=== PATIENT | male | born 1935 | race Caucasian/White ===

== ENCOUNTER 2017-02-11 10:36 | Emergency (ER) | payer MEDICARE ==
[~2017-02-11] VITALS: Ht 165.1 cm; Wt 74.8 kg
[~2017-02-11 10:36] MED LIST: BACTRIM DS TAB1 EACH PO; LACTULOSE20 GM/30 M PO; ULTRAM50 MG PO; VICODIN 5-5001 EACH PO
[2017-02-11 12:21] LABS: BASOPHILS # (AUTO) 0.1 (0.0-0.1); BASOPHILS % 0.6 % (0.0-1.0); EOSINOPHILS # (AUTO) 0.2 (0.0-0.4); EOSINOPHILS % 1.2 % (0.0-6.0); HEMOGLOBIN 11.8 g/dL (14.0-18.0); LYMPHOCYTES # (AUTO) 1.2 (1.0-3.2); LYMPHOCYTES % 10.2 % (18.0-39.1); MEAN CORPUSCULAR HEMOGLOBIN 29.4 pg (28-32); MEAN CORPUSCULAR HGB CONC 32.8 g/dL (31-35); MEAN CORPUSCULAR VOLUME 89.8 fL (81-99); MONOCYTES # (AUTO) 0.6 (0.2-0.8); MONOCYTES % 4.8 % (4.4-11.3); PLATELET COUNT 209 x10e3/uL (140-360); RED BLOOD COUNT 4.01 x10e6/uL (4.3-5.7)
[2017-02-11 12:33] LABS: ANION GAP 12.4 mmol/L (8-16); BLOOD UREA NITROGEN 25 mg/dL (7-26); BUN/CREATININE RATIO 23 (6-25); CALCIUM 9.6 mg/dL (8.4-10.2); CARBON DIOXIDE 26 mmol/L (22-29); CHLORIDE 102 mmol/L (98-107); CREATINE KINASE 172 IU/L (30-200); EST GLOMERULAR FILTRATION RATE > 60 ML/MIN (60-); GLUCOSE 135 mg/dL (74-118); POTASSIUM 5.4 mmol/L (3.5-5.1); SODIUM 135 mmol/L (136-145)
[2017-02-11 12:39] LABS: TROPONIN I 0.015 ng/mL (0-0.300)
[2017-02-11] MEDS ORDERED: SODIUM CHLORIDE 0.9% 1000ML 1,000 ML IV ONE (13:00)
[2017-02-11 14:38] LABS: BILIRUBIN,URINE NEGATIVE (NEGATIVE); KETONES,URINE NEGATIVE (NEGATIVE); LEUKOCYTE ESTERASE ,URINE TRACE (NEGATIVE); NITRITE,URINE NEGATIVE (NEGATIVE); PROTEIN,URINE DIPSTICK NEGATIVE (NEGATIVE); URINE UROBILINOGEN 0.2 mg/dL (0.2 - 1)
[2017-02-11 14:39] LABS: CLARITY,URINE SL CLOUDY (CLEAR); COLOR,URINE YELLOW (YELLOW)
[2017-02-11 14:54] LABS: WBC,URINE (MAN) 0-5 /HPF (0-5)
[2017-02-11 15:24] VITALS: BP 152/67
== END 2017-02-11 15:39 | disposition home or self-care (01) ==
LOC: ER 10:36
DX: R55 Syncope and collapse (principal); R42 Dizziness and giddiness; R11.0 Nausea; I10 Essential (primary) hypertension; Z85.038 Personal history of other malignant neoplasm of large intestine
CPT/HCPCS: 36415; 80048; 81001; 82550; 82553; 84484; 85025; 87086; 93005; 99283; J7030

== ENCOUNTER 2017-03-13 15:22 | Emergency (ER) | payer MEDICARE ==
[~2017-03-13] VITALS: Ht 165.1 cm; Wt 74.8 kg
--- OUTSIDE RECORDS SUMMARY | 2017-03-13 15:27 | XMS REPORT ---
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 Allergies, Adverse Reactions, Alerts This patient has no known allergies or adverse reactions. Medications This patient has no known medications. Encounters Start Date/Time End Date/Time Encounter Type Admission Type Attending [facility] Care Facility Care Department Encounter ID 2016-07-17 08:55:00 2016-07-17 08:55:00 Outpatient C [facility] MED [id number] Results Test Description Test Time Test Comments Text Results Atomic Results Result Comments POC Glucose, Blood 2016-08-29 11:27:00 POC Glucose (test code=POCGLUC) 173 mg/dL 70-115 If you consider your patient critically ill, the Sunny Accu-Chek InformII metershould not be used for Glucose determinations.Draw a venous Glucose and send to the Main Lab for Analysis. POC Glucose, [id number] 07:00:00* Test Item Value Reference Range Comments POC Glucose (test code=POCGLUC) 119 mg/dL 70-115 If you consider your patient critically ill, the Sunny Accu-Chek InformII metershould not be used for Glucose determinations.Draw a venous Glucose and send to the Main Lab for Analysis. POC Glucose, [id number] 22:14:00* Test Item Value Reference Range Comments POC Glucose (test code=POCGLUC) 162 mg/dL 70-115 If you consider your patient critically ill, the Sunny Accu-Chek InformII metershould not be used for Glucose determinations.Draw a venous Glucose and send to the Main Lab for Analysis. POC Glucose, [id number] 16:35:00* Test Item Value Reference Range Comments POC Glucose (test code=POCGLUC) 132 mg/dL 70-115 If you consider your patient critically ill, the Sunny Accu-Chek InformII metershould not be used for Glucose determinations.Draw a venous Glucose and send to the Main Lab for Analysis. POC Glucose, [id number] 11:37:00* Test Item Value Reference Range Comments POC Glucose (test code=POCGLUC) 154 mg/dL 70-115 If you consider your patient critically ill, the Sunny Accu-Chek InformII metershould not be used for Glucose determinations.Draw a venous Glucose and send to the Main Lab for Analysis. POC Glucose, [id number] 07:29:00* Test Item Value Reference Range Comments POC Glucose (test code=POCGLUC) 118 mg/dL 70-115 If you consider your patient critically ill, the Sunny Accu-Chek InformII metershould not be used for Glucose determinations.Draw a venous Glucose and send to the Main Lab for Analysis. POC Glucose, [id number] 22:06:00* Test Item Value Reference Range Comments POC Glucose (test code=POCGLUC) 145 mg/dL 70-115 If you consider your patient critically ill, the Sunny Accu-Chek InformII metershould not be used for Glucose determinations.Draw a venous Glucose and send to the Main Lab for Analysis. POC Glucose, [id number] 17:12:00* Test Item Value Reference Range Comments POC Glucose (test code=POCGLUC) 117 mg/dL 70-115 If you consider your patient critically ill, the Sunny Accu-Chek InformII metershould not be used for Glucose determinations.Draw a venous Glucose and send to the Main Lab for Analysis. POC Glucose, [id number] 11:00:00* Test Item Value Reference Range Comments POC Glucose (test code=POCGLUC) 151 mg/dL 70-115 Notify RN or MDIf you consider your patient critically ill, the Sunny Accu-Chek InformII metershould not be used for Glucose determinations.Draw a venous Glucose and send to the Main Lab for Analysis. POC Glucose, [id number] 07:42:00* Test Item Value Reference Range Comments POC Glucose (test code=POCGLUC) 99 mg/dL 70-115 If you consider your patient critically ill, the Sunny Accu-Chek InformII metershould not be used for Glucose determinations.Draw a venous Glucose and send to the Main Lab for Analysis. POC Glucose, [id number] 21:10:00* Test Item Value Reference Range Comments POC Glucose (test code=POCGLUC) 165 mg/dL 70-115 Notify RN or MDIf you consider your patient critically ill, the Sunny Accu-Chek InformII metershould not be used for Glucose determinations.Draw a venous Glucose and send to the Main Lab for Analysis. POC Glucose, [id number] 16:51:00* Test Item Value Reference Range Comments POC Glucose (test code=POCGLUC) 149 mg/dL 70-115 If you consider your patient critically ill, the Sunny Accu-Chek InformII metershould not be used for Glucose determinations.Draw a venous Glucose and send to the Main Lab for Analysis. POC Glucose, [id number] 11:19:00* Test Item Value Reference Range Comments POC Glucose (test code=POCGLUC) 138 mg/dL 70-115 If you consider your patient critically ill, the Sunny Accu-Chek InformII metershould not be used for Glucose determinations.Draw a venous Glucose and send to the Main Lab for Analysis. POC Glucose, [id number] 07:28:00* Test Item Value Reference Range Comments POC Glucose (test code=POCGLUC) 123 mg/dL 70-115 If you consider your patient critically ill, the Sunny Accu-Chek InformII metershould not be used for Glucose determinations.Draw a venous Glucose and send to the Main Lab for Analysis. POC Glucose, [id number] 22:48:00* Test Item Value Reference Range Comments POC Glucose (test code=POCGLUC) 142 mg/dL 70-115 If you consider your patient critically ill, the Sunny Accu-Chek InformII metershould not be used for Glucose determinations.Draw a venous Glucose and send to the Main Lab for Analysis. POC Glucose, [id number] 16:51:00* Test Item Value Reference Range Comments POC Glucose (test code=POCGLUC) 129 mg/dL 70-115 If you consider your patient critically ill, the Sunny Accu-Chek InformII metershould not be used for Glucose determinations.Draw a venous Glucose and send to the Main Lab for Analysis. POC Glucose, [id number] 11:12:00* Test Item Value Reference Range Comments POC Glucose (test code=POCGLUC) 117 mg/dL 70-115 If you consider your patient critically ill, the Sunny Accu-Chek InformII metershould not be used for Glucose determinations.Draw a venous Glucose and send to the Main Lab for Analysis. POC Glucose, [id number] 07:41:00* Test Item Value Reference Range Comments POC Glucose (test code=POCGLUC) 108 mg/dL 70-115 If you consider your patient critically ill, the Sunny Accu-Chek InformII metershould not be used for Glucose determinations.Draw a venous Glucose and send to the Main Lab for Analysis. POC Glucose, [id number] 20:24:00* Test Item Value Reference Range Comments POC Glucose (test code=POCGLUC) 123 mg/dL 70-115 If you consider your patient critically ill, the Sunny Accu-Chek InformII metershould not be used for Glucose determinations.Draw a venous Glucose and send to the Main Lab for Analysis. POC Glucose, [id number] 17:07:00* Test Item Value Reference Range Comments POC Glucose (test code=POCGLUC) 125 mg/dL 70-115 If you consider your patient critically ill, the Sunny Accu-Chek InformII metershould not be used for Glucose determinations.Draw a venous Glucose and send to the Main Lab for Analysis. POC Glucose, [id number] 11:17:00* Test Item Value Reference Range Comments POC Glucose (test code=POCGLUC) 127 mg/dL 70-115 If you consider your patient critically ill, the Sunny Accu-Chek InformII metershould not be used for Glucose determinations.Draw a venous Glucose and send to the Main Lab for Analysis. POC Glucose, [id number] 08:01:00* Test Item Value Reference Range Comments POC Glucose (test code=POCGLUC) 121 mg/dL 70-115 If you consider your patient critically ill, the Sunny Accu-Chek InformII metershould not be used for Glucose determinations.Draw a venous Glucose and send to the Main Lab for Analysis. POC Glucose, [id number] 20:55:00* Test Item Value Reference Range Comments POC Glucose (test code=POCGLUC) 124 mg/dL 70-115 If you consider your patient critically ill, the Sunny Accu-Chek InformII metershould not be used for Glucose determinations.Draw a venous Glucose and send to the Main Lab for Analysis. POC Glucose, [id number] 16:51:00* Test Item Value Reference Range Comments POC Glucose (test code=POCGLUC) 102 mg/dL 70-115 If you consider your patient critically ill, the Sunny Accu-Chek InformII metershould not be used for Glucose determinations.Draw a venous Glucose and send to the Main Lab for Analysis. POC Glucose, [id number] 11:15:00* Test Item Value Reference Range Comments POC Glucose (test code=POCGLUC) 113 mg/dL 70-115 If you consider your patient critically ill, the Sunny Accu-Chek InformII metershould not be used for Glucose determinations.Draw a venous Glucose and send to the Main Lab for Analysis. POC Glucose, [id number] 07:10:00* Test Item Value Reference Range Comments POC Glucose (test code=POCGLUC) 93 mg/dL 70-115 If you consider your patient critically ill, the Sunny Accu-Chek InformII metershould not be used for Glucose determinations.Draw a venous Glucose and send to the Main Lab for Analysis. POC Glucose, [id number] 05:10:00* Test Item Value Reference Range Comments POC Glucose (test code=POCGLUC) 121 mg/dL 70-115 If you consider your patient critically ill, the Sunny Accu-Chek InformII metershould not be used for Glucose determinations.Draw a venous Glucose and send to the Main Lab for Analysis. POC Glucose, [id number] 20:17:00* Test Item Value Reference Range Comments POC Glucose (test code=POCGLUC) 133 mg/dL 70-115 If you consider your patient critically ill, the Sunny Accu-Chek InformII metershould not be used for Glucose determinations.Draw a venous Glucose and send to the Main Lab for Analysis. POC Glucose, [id number] 16:47:00* Test Item Value Reference Range Comments POC Glucose (test code=POCGLUC) 112 mg/dL 70-115 If you consider your patient critically ill, the Sunny Accu-Chek InformII metershould not be used for Glucose determinations.Draw a venous Glucose and send to the Main Lab for Analysis. POC Glucose, [id number] 11:36:00* Test Item Value Reference Range Comments POC Glucose (test code=POCGLUC) 118 mg/dL 70-115 If you consider your patient critically ill, the Sunny Accu-Chek InformII metershould not be used for Glucose determinations.Draw a venous Glucose and send to the Main Lab for Analysis. POC Glucose, [id number] 07:21:00* Test Item Value Reference Range Comments POC Glucose (test code=POCGLUC) 107 mg/dL 70-115 If you consider your patient critically ill, the Sunny Accu-Chek InformII metershould not be used for Glucose determinations.Draw a venous Glucose and send to the Main Lab for Analysis. POC Glucose, [id number] 21:48:00* Test Item Value Reference Range Comments POC Glucose (test code=POCGLUC) 121 mg/dL 70-115 Notify RN or MDIf you consider your patient critically ill, the Sunny Accu-Chek InformII metershould not be used for Glucose determinations.Draw a venous Glucose and send to the Main Lab for Analysis. POC Glucose, [id number] 17:40:00* Test Item Value Reference Range Comments POC Glucose (test code=POCGLUC) 135 mg/dL 70-115 If you consider your patient critically ill, the Sunny Accu-Chek InformII metershould not be used for Glucose determinations.Draw a venous Glucose and send to the Main Lab for Analysis. POC Glucose, [id number] 11:46:00* Test Item Value Reference Range Comments POC Glucose (test code=POCGLUC) 125 mg/dL 70-115 If you consider your patient critically ill, the Sunny Accu-Chek InformII metershould not be used for Glucose determinations.Draw a venous Glucose and send to the Main Lab for Analysis. POC Glucose, [id number] 07:32:00* Test Item Value Reference Range Comments POC Glucose (test code=POCGLUC) 114 mg/dL 70-115 If you consider your patient critically ill, the Sunny Accu-Chek InformII metershould not be used for Glucose determinations.Draw a venous Glucose and send to the Main Lab for Analysis. POC Glucose, [id number] 21:02:00* Test Item Value Reference Range Comments POC Glucose (test code=POCGLUC) 139 mg/dL 70-115 Notify RN or MDIf you consider your patient critically ill, the Sunny Accu-Chek InformII metershould not be used for Glucose determinations.Draw a venous Glucose and send to the Main Lab for Analysis. POC Glucose, [id number] 17:36:00* Test Item Value Reference Range Comments POC Glucose (test code=POCGLUC) 97 mg/dL 70-115 If you consider your patient critically ill, the Sunny Accu-Chek InformII metershould not be used for Glucose determinations.Draw a venous Glucose and send to the Main Lab for Analysis. POC Glucose, [id number] 11:17:00* Test Item Value Reference Range Comments POC Glucose (test code=POCGLUC) 124 mg/dL 70-115 If you consider your patient critically ill, the Sunny Accu-Chek InformII metershould not be used for Glucose determinations.Draw a venous Glucose and send to the Main Lab for Analysis. POC Glucose, [id number] 07:47:00* Test Item Value Reference Range Comments POC Glucose (test code=POCGLUC) 123 mg/dL 70-115 If you consider your patient critically ill, the Sunny Accu-Chek InformII metershould not be used for Glucose determinations.Draw a venous Glucose and send to the Main Lab for Analysis. POC Glucose, [id number] 21:01:00* Test Item Value Reference Range Comments POC Glucose (test code=POCGLUC) 133 mg/dL 70-115 Notify RN or MDIf you consider your patient critically ill, the Sunny Accu-Chek InformII metershould not be used for Glucose determinations.Draw a venous Glucose and send to the Main Lab for Analysis. POC Glucose, [id number] 17:10:00* Test Item Value Reference Range Comments POC Glucose (test code=POCGLUC) 125 mg/dL 70-115 If you consider your patient critically ill, the Sunny Accu-Chek InformII metershould not be used for Glucose determinations.Draw a venous Glucose and send to the Main Lab for Analysis. POC Glucose, [id number] 11:22:00* Test Item Value Reference Range Comments POC Glucose (test code=POCGLUC) 139 mg/dL 70-115 If you consider your patient critically ill, the Sunny Accu-Chek InformII metershould not be used for Glucose determinations.Draw a venous Glucose and send to the Main Lab for Analysis. POC Glucose, [id number] 07:23:00* Test Item Value Reference Range Comments POC Glucose (test code=POCGLUC) 133 mg/dL 70-115 If you consider your patient critically ill, the Sunny Accu-Chek InformII metershould not be used for Glucose determinations.Draw a venous Glucose and send to the Main Lab for Analysis. POC Glucose, [id number] 05:51:00* Test Item Value Reference Range Comments POC Glucose (test code=POCGLUC) 140 mg/dL 70-115 Notify RN or MDIf you consider your patient critically ill, the Sunny Accu-Chek InformII metershould not be used for Glucose determinations.Draw a venous Glucose and send to the Main Lab for Analysis. POC Glucose, [id number] 20:05:00* Test Item Value Reference Range Comments POC Glucose (test code=POCGLUC) 134 mg/dL 70-115 Notify RN or MDIf you consider your patient critically ill, the Sunny Accu-Chek InformII metershould not be used for Glucose determinations.Draw a venous Glucose and send to the Main Lab for Analysis. POC Glucose, [id number] 16:19:00* Test Item Value Reference Range Comments POC Glucose (test code=POCGLUC) 146 mg/dL 70-115 If you consider your patient critically ill, the Sunny Accu-Chek InformII metershould not be used for Glucose determinations.Draw a venous Glucose and send to the Main Lab for Analysis. POC Glucose, [id number] 11:31:00* Test Item Value Reference Range Comments POC Glucose (test code=POCGLUC) 130 mg/dL 70-115 If you consider your patient critically ill, the Sunny Accu-Chek InformII metershould not be used for Glucose determinations.Draw a venous Glucose and send to the Main Lab for Analysis. C difficile Toxins [id number] 11:02:00Specimen: StoolCollected: 08/17/2016 19 :55 Status: Final Last Updated: 08/18/2016 11:02 C DIFF TOXIN ( Final) (Final) 08/18/16 Clostridium difficile toxin present Contact isolation recommended +08/18/16 Called to Ibis Hebert RN at 1100/CL Read Back Lab Value Result added after release. C DIFF TOXIN (Final) (Final) 7/8/17 Clostridium difficile toxin present Contact isolation recommended POC Glucose, [id number] 07:31:00* Test Item Value Reference Range Comments POC Glucose (test code=POCGLUC) 109 mg/dL 70-115 If you consider your patient critically ill, the Sunny Accu-Chek InformII metershould not be used for Glucose determinations.Draw a venous Glucose and send to the Main Lab for Analysis. POC Glucose, [id number] 01:39:00* Test Item Value Reference Range Comments POC Glucose (test code=POCGLUC) 101 mg/dL 70-115 If you consider your patient critically ill, the Sunny Accu-Chek InformII metershould not be used for Glucose determinations.Draw a venous Glucose and send to the Main Lab for Analysis. POC Glucose, [id number] 20:55:00* Test Item Value Reference Range Comments POC Glucose (test code=POCGLUC) 75 mg/dL 70-115 If you consider your patient critically ill, the Sunny Accu-Chek InformII metershould not be used for Glucose determinations.Draw a venous Glucose and send to the Main Lab for Analysis. POC Glucose, [id number] 17:34:00* Test Item Value Reference Range Comments POC Glucose (test code=POCGLUC) 83 mg/dL 70-115 If you consider your patient critically ill, the Sunny Accu-Chek InformII metershould not be used for Glucose determinations.Draw a venous Glucose and send to the Main Lab for Analysis. POC Glucose, [id number] 11:37:00* Test Item Value Reference Range Comments POC Glucose (test code=POCGLUC) 110 mg/dL 70-115 If you consider your patient critically ill, the Sunny Accu-Chek InformII metershould not be used for Glucose determinations.Draw a venous Glucose and send to the Main Lab for Analysis. POC Glucose, [id number] 07:53:00* Test Item Value Reference Range Comments POC Glucose (test code=POCGLUC) 98 mg/dL 70-115 If you consider your patient critically ill, the Sunny Accu-Chek InformII metershould not be used for Glucose determinations.Draw a venous Glucose and send to the Main Lab for Analysis. POC Glucose, [id number] 20:55:00* Test Item Value Reference Range Comments POC Glucose (test code=POCGLUC) 111 mg/dL 70-115 If you consider your patient critically ill, the Sunny Accu-Chek InformII metershould not be used for Glucose determinations.Draw a venous Glucose and send to the Main Lab for Analysis. POC Glucose, [id number] 16:46:00* Test Item Value Reference Range Comments POC Glucose (test code=POCGLUC) 117 mg/dL 70-115 If you consider your patient critically ill, the Sunny Accu-Chek InformII metershould not be used for Glucose determinations.Draw a venous Glucose and send to the Main Lab for Analysis. [id number] 09:08:00* Test Item Value Reference Range Comments Phosphorus (test code=PO4) 4.0 mg/dL 2.70-4.50 Magnesium, [id number] 09:08:00* Test Item Value Reference Range Comments Magnesium (test code=MG) 2.1 mg/dL 1.7-2.5 Comprehensive Metabolic [id number] 09:08:00* Test Item Value Reference Range Comments Sodium (test code=NA) 132 mmol/L 135-145 Potassium (test code=K) 4.2 mmol/L 3.5-5.1 Chloride (test code=CL) 93 mmol/L 98-105 Carbon Dioxide (test code=CO2) 28 mmol/L 22-29 Glucose (test code=GLU) 117 mg/dL 70-115 Blood Urea Nitrogen (test code=BUN) 19 mg/dL 8-23 Creatinine (test code=CREAT) 0.6 mg/dL 0.7-1.2 Calcium (test code=CA) 8.7 mg/dL 8.3-10.5 Prot Total (test code=TP) 5.7 g/dL 6.4-8.3 Albumin (test code=ALB) 2.9 g/dL 3.5-5.2 A/G Ratio (test code=AGRATIO) 1.0 Ratio Globulin (test code=GLOB) 2.8 2.9-3.1 Bili Total (test code=TBIL) 0.4 mg/dL 0.1-0.9 Alk Phos (test code=APHOS) 75 U/L 40-129 AST (test code=AST) 24 U/L 1-40 ALT (test code=ALT) 20 U/L 1-41 BUN/Creatinine Ratio (test code=BCRATIO) 31.7 Anion Gap (test code=AGAP) 11 mmol/L 7-16 Estimated GFR (test code=GFR) >60 mL/min/1.73m2 eGFR (estimated Glomerular Filtration Rate) is an estimated value,calculated from the patient's serum creatinine using the MDRD equation.It is NOT the patient's actual GFR. The eGFR provides a more clinicallyuseful measure of kidney disease than serum creatinine alone.This calculation takes sex and race into account, if the informationis provided. If the race is not provided, and the patient isAfrican- [place], multiply by 1.212. If sex is not provided, and thepatient is female, multiply by 0.742. Results for patients <18 years ofage have not been validated by the MDRD study and should be interpretedwith caution.eGFR Result Interpretation:eGFR > or=60 is in the Normal RangeeGFR < 60 may mean kidney diseaseeGFR < 15 may mean kidney failureRanges recommended by the National Kidney Foundation,http://nkdep.nih.gov CBC with [id number] 08:20:00* Test Item Value Reference Range Comments WBC (test code=WBC) 5.3 K/cumm 4.4-10.5 RBC (test code=RBC) 2.97 M/cumm 4.10-5.70 Hemoglobin (test code=HGB) 8.9 gm/dL 13.4-17.4 Hematocrit (test code=HCT) 27.8 % 38.7-52.0 MCV (test code=MCV) 93.7 fL 80-100 MCH (test code=MCH) 30.0 pg 27.0-32.5 MCHC (test code=MCHC) 32.0 g/dL 32.0-37.5 RDW (test code=RDW) 13.7 % 11.5-14.5 Platelet Count (test code=PLTCT) 419 K/cumm 140-440 MPV (test code=MPV) 8.7 fL Diff Method (test code=DIFFM) Auto Neutrophil (test code=NEUT) 69.0 % 36-70 Lymphocyte (test code=LYMPH) 15.9 % 12-44 Monocyte (test code=MONO) 11.3 % 0-11 Eosinophil (test code=EOS) 3.4 % 0-7 Basophil (test code=BASO) 0.3 % 0-2 Neutro Abs (test code=ANEUT) 3.6 K/cumm 1.6-7.4 Lymph Abs (test code=ALYMPH) 0.8 K/cumm 0.5-4.6 [place] Abs (test code=AMONO) 0.6 K/cumm 0.0-1.2 Eos Abs (test code=AEOS) 0.18 K/cumm 0.00-0.74 Baso Abs (test code=ABASO) 0.0 K/cumm 0.00-0.21 POC Glucose, [id number] 07:42:00* Test Item Value Reference Range Comments POC Glucose (test code=POCGLUC) 139 mg/dL 70-115 If you consider your patient critically ill, the Sunny Accu-Chek InformII metershould not be used for Glucose determinations.Draw a venous Glucose and send to the Main Lab for Analysis. POC Glucose, [id number] 20:37:00* Test Item Value Reference Range Comments POC Glucose (test code=POCGLUC) 122 mg/dL 70-115 If you consider your patient critically ill, the Sunny Accu-Chek InformII metershould not be used for Glucose determinations.Draw a venous Glucose and send to the Main Lab for Analysis. Partial Thromboplastin [id number] 17:28:00* Test Item Value Reference Range Comments aPTT (test code=PTT) 35.70 seconds 24.39-37.25 CBC with [id number] 17:27:00* Test Item Value Reference Range Comments WBC (test code=WBC) 5.0 K/cumm 4.4-10.5 RBC (test code=RBC) 2.89 M/cumm 4.10-5.70 Hemoglobin (test code=HGB) 8.4 gm/dL 13.4-17.4 Hematocrit (test code=HCT) 26.6 % 38.7-52.0 MCV (test code=MCV) 92.0 fL 80-100 MCH (test code=MCH) 29.1 pg 27.0-32.5 MCHC (test code=MCHC) 31.6 g/dL 32.0-37.5 RDW (test code=RDW) 14.5 % 11.5-14.5 Platelet Count (test code=PLTCT) 356 K/cumm 140-440 MPV (test code=MPV) 8.6 fL Diff Method (test code=DIFFM) Manual Neutrophil (test code=NEUT) 54.0 % 36-70 Bands (test code=BAND) 5.0 % 0-6 Lymphocyte (test code=LYMPH) 19.0 % 12-44 Monocyte (test code=MONO) 15.0 % 0-11 Eosinophil (test code=EOS) 7.0 % 0-7 Neutro Abs (test code=ANEUT) 3.0 K/cumm 1.6-7.4 Lymph Abs (test code=ALYMPH) 1.0 K/cumm 0.5-4.6 [place] Abs (test code=AMONO) 0.8 K/cumm 0.0-1.2 Eos Abs (test code=AEOS) 0.35 K/cumm 0.00-0.74 RBC Morphology (test code=RBCMRPH) Slight Polychromasia ; Slight Anisocytosis Platelet Est (test code=PLTEST) Normal Platelet on Smear Prothrombin [id number] 17:03:00* Test Item Value Reference Range Comments PT (test code=PT) 10.90 seconds 9.78-13.35 INR (test code=INR) 0.96 Ratio 0.6-1.2 POC Glucose, [id number] 17:02:00* Test Item Value Reference Range Comments POC Glucose (test code=POCGLUC) 111 mg/dL 70-115 If you consider your patient critically ill, the Sunny Accu-Chek InformII metershould not be used for Glucose determinations.Draw a venous Glucose and send to the Main Lab for Analysis. POC Glucose, [id number] 11:17:00* Test Item Value Reference Range Comments POC Glucose (test code=POCGLUC) 129 mg/dL 70-115 If you consider your patient critically ill, the Sunny Accu-Chek InformII metershould not be used for Glucose determinations.Draw a venous Glucose and send to the Main Lab for Analysis. POC Glucose, [id number] 07:24:00* Test Item Value Reference Range Comments POC Glucose (test code=POCGLUC) 91 mg/dL 70-115 If you consider your patient critically ill, the Sunny Accu-Chek InformII metershould not be used for Glucose determinations.Draw a venous Glucose and send to the Main Lab for Analysis. POC Glucose, [id number] 20:30:00* Test Item Value Reference Range Comments POC Glucose (test code=POCGLUC) 133 mg/dL 70-115 If you consider your patient critically ill, the Sunny Accu-Chek InformII metershould not be used for Glucose determinations.Draw a venous Glucose and send to the Main Lab for Analysis. POC Glucose, [id number] 16:45:00* Test Item Value Reference Range Comments POC Glucose (test code=POCGLUC) 109 mg/dL 70-115 If you consider your patient critically ill, the Sunny Accu-Chek InformII metershould not be used for Glucose determinations.Draw a venous Glucose and send to the Main Lab for Analysis. POC Glucose, [id number] 11:06:00* Test Item Value Reference Range Comments POC Glucose (test code=POCGLUC) 135 mg/dL 70-115 If you consider your patient critically ill, the Sunny Accu-Chek InformII metershould not be used for Glucose determinations.Draw a venous Glucose and send to the Main Lab for Analysis. POC Glucose, [id number] 07:14:00* Test Item Value Reference Range Comments POC Glucose (test code=POCGLUC) 102 mg/dL 70-115 If you consider your patient critically ill, the Sunny Accu-Chek InformII metershould not be used for Glucose determinations.Draw a venous Glucose and send to the Main Lab for Analysis. POC Glucose, [id number] 04:35:00* Test Item Value Reference Range Comments POC Glucose (test code=POCGLUC) 122 mg/dL 70-115 If you consider your patient critically ill, the Sunny Accu-Chek InformII metershould not be used for Glucose determinations.Draw a venous Glucose and send to the Main Lab for Analysis. POC Glucose, [id number] 21:26:00* Test Item Value Reference Range Comments POC Glucose (test code=POCGLUC) 135 mg/dL 70-115 If you consider your patient critically ill, the Sunny Accu-Chek InformII metershould not be used for Glucose determinations.Draw a venous Glucose and send to the Main Lab for Analysis. POC Glucose, [id number] 16:27:00* Test Item Value Reference Range Comments POC Glucose (test code=POCGLUC) 122 mg/dL 70-115 If you consider your patient critically ill, the Sunny Accu-Chek InformII metershould not be used for Glucose determinations.Draw a venous Glucose and send to the Main Lab for Analysis. POC Glucose, [id number] 11:17:00* Test Item Value Reference Range Comments POC Glucose (test code=POCGLUC) 119 mg/dL 70-115 If you consider your patient critically ill, the Sunny Accu-Chek InformII metershould not be used for Glucose determinations.Draw a venous Glucose and send to the Main Lab for Analysis. POC Glucose, [id number] 07:18:00* Test Item Value Reference Range Comments POC Glucose (test code=POCGLUC) 107 mg/dL 70-115 If you consider your patient critically ill, the Sunny Accu-Chek InformII metershould not be used for Glucose determinations.Draw a venous Glucose and send to the Main Lab for Analysis. POC Glucose, [id number] 20:41:00* Test Item Value Reference Range Comments POC Glucose (test code=POCGLUC) 117 mg/dL 70-115 If you consider your patient critically ill, the Sunny Accu-Chek InformII metershould not be used for Glucose determinations.Draw a venous Glucose and send to the Main Lab for Analysis. POC Glucose, [id number] 16:44:00* Test Item Value Reference Range Comments POC Glucose (test code=POCGLUC) 113 mg/dL 70-115 If you consider your patient critically ill, the Sunny Accu-Chek InformII metershould not be used for Glucose determinations.Draw a venous Glucose and send to the Main Lab for Analysis. POC Glucose, [id number] 10:51:00* Test Item Value Reference Range Comments POC Glucose (test code=POCGLUC) 103 mg/dL 70-115 If you consider your patient critically ill, the Sunny Accu-Chek InformII metershould not be used for Glucose determinations.Draw a venous Glucose and send to the Main Lab for Analysis. POC Glucose, [id number] 07:10:00* Test Item Value Reference Range Comments POC Glucose (test code=POCGLUC) 108 mg/dL 70-115 If you consider your patient critically ill, the Sunny Accu-Chek InformII metershould not be used for Glucose determinations.Draw a venous Glucose and send to the Main Lab for Analysis. POC Glucose, [id number] 21:26:00* Test Item Value Reference Range Comments POC Glucose (test code=POCGLUC) 127 mg/dL 70-115 If you consider your patient critically ill, the Sunny Accu-Chek InformII metershould not be used for Glucose determinations.Draw a venous Glucose and send to the Main Lab for Analysis. POC Glucose, [id number] 16:50:00* Test Item Value Reference Range Comments POC Glucose (test code=POCGLUC) 128 mg/dL 70-115 If you consider your patient critically ill, the Sunny Accu-Chek InformII metershould not be used for Glucose determinations.Draw a venous Glucose and send to the Main Lab for Analysis. POC Glucose, [id number] 10:53:00* Test Item Value Reference Range Comments POC Glucose (test code=POCGLUC) 117 mg/dL 70-115 If you consider your patient critically ill, the Sunny Accu-Chek InformII metershould not be used for Glucose determinations.Draw a venous Glucose and send to the Main Lab for Analysis. POC Glucose, [id number] 07:22:00* Test Item Value Reference Range Comments POC Glucose (test code=POCGLUC) 103 mg/dL 70-115 If you consider your patient critically ill, the Sunny Accu-Chek InformII metershould not be used for Glucose determinations.Draw a venous Glucose and send to the Main Lab for Analysis. Basic Metabolic [id number] 07:16:00* Test Item Value Reference Range Comments Sodium (test code=NA) 131 mmol/L 135-145 Potassium (test code=K) 4.5 mmol/L 3.5-5.1 Chloride (test code=CL) 95 mmol/L 98-105 Carbon Dioxide (test code=CO2) 26 mmol/L 22-29 Glucose (test code=GLU) 96 mg/dL 70-115 Blood Urea Nitrogen (test code=BUN) 17 mg/dL 8-23 Creatinine (test code=CREAT) 0.6 mg/dL 0.7-1.2 Calcium (test code=CA) 8.2 mg/dL 8.3-10.5 BUN/Creatinine Ratio (test code=BCRATIO) 28.3 Anion Gap (test code=AGAP) 10 mmol/L 7-16 Estimated GFR (test code=GFR) >60 mL/min/1.73m2 eGFR (estimated Glomerular Filtration Rate) is an estimated value,calculated from the patient's serum creatinine using the MDRD equation.It is NOT the patient's actual GFR. The eGFR provides a more clinicallyuseful measure of kidney disease than serum creatinine alone.This calculation takes sex and race into account, if the informationis provided. If the race is not provided, and the patient isAfrican- [place], multiply by 1.212. If sex is not provided, and thepatient is female, multiply by 0.742. Results for patients <18 years ofage have not been validated by the MDRD study and should be interpretedwith caution.eGFR Result Interpretation:eGFR > or=60 is in the Normal RangeeGFR < 60 may mean kidney diseaseeGFR < 15 may mean kidney failureRanges recommended by the National Kidney Foundation,http://nkdep.nih.gov CBC with [id number] 06:54:00* Test Item Value Reference Range Comments WBC (test code=WBC) 6.6 K/cumm 4.4-10.5 RBC (test code=RBC) 2.53 M/cumm 4.10-5.70 Hemoglobin (test code=HGB) 7.6 gm/dL 13.4-17.4 Hematocrit (test code=HCT) 24.1 % 38.7-52.0 MCV (test code=MCV) 95.2 fL 80-100 MCH (test code=MCH) 30.2 pg 27.0-32.5 MCHC (test code=MCHC) 31.7 g/dL 32.0-37.5 RDW (test code=RDW) 14.0 % 11.5-14.5 Platelet Count (test code=PLTCT) 314 K/cumm 140-440 MPV (test code=MPV) 8.8 fL Diff Method (test code=DIFFM) Auto Neutrophil (test code=NEUT) 74.4 % 36-70 Lymphocyte (test code=LYMPH) 14.6 % 12-44 Monocyte (test code=MONO) 7.2 % 0-11 Eosinophil (test code=EOS) 3.6 % 0-7 Basophil (test code=BASO) 0.2 % 0-2 Neutro Abs (test code=ANEUT) 4.9 K/cumm 1.6-7.4 Lymph Abs (test code=ALYMPH) 1.0 K/cumm 0.5-4.6 [place] Abs (test code=AMONO) 0.5 K/cumm 0.0-1.2 Eos Abs (test code=AEOS) 0.24 K/cumm 0.00-0.74 Baso Abs (test code=ABASO) 0.0 K/cumm 0.00-0.21 POC Glucose, [id number] 21:33:00* Test Item Value Reference Range Comments POC Glucose (test code=POCGLUC) 118 mg/dL 70-115 If you consider your patient critically ill, the Sunny Accu-Chek InformII metershould not be used for Glucose determinations.Draw a venous Glucose and send to the Main Lab for Analysis. POC Glucose, [id number] 16:46:00* Test Item Value Reference Range Comments POC Glucose (test code=POCGLUC) 108 mg/dL 70-115 If you consider your patient critically ill, the Sunny Accu-Chek InformII metershould not be used for Glucose determinations.Draw a venous Glucose and send to the Main Lab for Analysis. POC Glucose, [id number] 11:08:00* Test Item Value Reference Range Comments POC Glucose (test code=POCGLUC) 116 mg/dL 70-115 If you consider your patient critically ill, the Sunny Accu-Chek InformII metershould not be used for Glucose determinations.Draw a venous Glucose and send to the Main Lab for Analysis. POC Glucose, [id number] 07:13:00* Test Item Value Reference Range Comments POC Glucose (test code=POCGLUC) 113 mg/dL 70-115 If you consider your patient critically ill, the Sunny Accu-Chek InformII metershould not be used for Glucose determinations.Draw a venous Glucose and send to the Main Lab for Analysis. POC Glucose, [id number] 21:17:00* Test Item Value Reference Range Comments POC Glucose (test code=POCGLUC) 117 mg/dL 70-115 If you consider your patient critically ill, the Sunny Accu-Chek InformII metershould not be used for Glucose determinations.Draw a venous Glucose and send to the Main Lab for Analysis. POC Glucose, [id number] 17:18:00* Test Item Value Reference Range Comments POC Glucose (test code=POCGLUC) 114 mg/dL 70-115 If you consider your patient critically ill, the Sunny Accu-Chek InformII metershould not be used for Glucose determinations.Draw a venous Glucose and send to the Main Lab for Analysis. POC Glucose, [id number] 11:11:00* Test Item Value Reference Range Comments POC Glucose (test code=POCGLUC) 119 mg/dL 70-115 If you consider your patient critically ill, the Sunny Accu-Chek InformII metershould not be used for Glucose determinations.Draw a venous Glucose and send to the Main Lab for Analysis. POC Glucose, [id number] 07:30:00* Test Item Value Reference Range Comments POC Glucose (test code=POCGLUC) 102 mg/dL 70-115 If you consider your patient critically ill, the Sunny Accu-Chek InformII metershould not be used for Glucose determinations.Draw a venous Glucose and send to the Main Lab for Analysis. POC Glucose, [id number] 20:56:00* Test Item Value Reference Range Comments POC Glucose (test code=POCGLUC) 115 mg/dL 70-115 If you consider your patient critically ill, the Sunny Accu-Chek InformII metershould not be used for Glucose determinations.Draw a venous Glucose and send to the Main Lab for Analysis. POC Glucose, [id number] 17:05:00* Test Item Value Reference Range Comments POC Glucose (test code=POCGLUC) 97 mg/dL 70-115 If you consider your patient critically ill, the Sunny Accu-Chek InformII metershould not be used for Glucose determinations.Draw a venous Glucose and send to the Main Lab for Analysis. POC Glucose, [id number] 11:36:00* Test Item Value Reference Range Comments POC Glucose (test code=POCGLUC) 109 mg/dL 70-115 If you consider your patient critically ill, the Sunny Accu-Chek InformII metershould not be used for Glucose determinations.Draw a venous Glucose and send to the Main Lab for Analysis. POC Glucose, [id number] 07:12:00* Test Item Value Reference Range Comments POC Glucose (test code=POCGLUC) 98 mg/dL 70-115 If you consider your patient critically ill, the Sunny Accu-Chek InformII metershould not be used for Glucose determinations.Draw a venous Glucose and send to the Main Lab for Analysis. POC Glucose, [id number] 21:06:00* Test Item Value Reference Range Comments POC Glucose (test code=POCGLUC) 113 mg/dL 70-115 If you consider your patient critically ill, the Sunny Accu-Chek InformII metershould not be used for Glucose determinations.Draw a venous Glucose and send to the Main Lab for Analysis. POC Glucose, [id number] 17:34:00* Test Item Value Reference Range Comments POC Glucose (test code=POCGLUC) 94 mg/dL 70-115 If you consider your patient critically ill, the Sunny Accu-Chek InformII metershould not be used for Glucose determinations.Draw a venous Glucose and send to the Main Lab for Analysis. CBC with [id number] 15:14:00* Test Item Value Reference Range Comments WBC (test code=WBC) 11.6 K/cumm 4.4-10.5 RBC (test code=RBC) 2.76 M/cumm 4.10-5.70 Hemoglobin (test code=HGB) 8.4 gm/dL 13.4-17.4 Hematocrit (test code=HCT) 26.0 % 38.7-52.0 MCV (test code=MCV) 94.4 fL 80-100 MCH (test code=MCH) 30.5 pg 27.0-32.5 MCHC (test code=MCHC) 32.3 g/dL 32.0-37.5 RDW (test code=RDW) 14.0 % 11.5-14.5 Platelet Count (test code=PLTCT) 521 K/cumm 140-440 MPV (test code=MPV) 8.6 fL Diff Method (test code=DIFFM) Auto Neutrophil (test code=NEUT) 87.8 % 36-70 Lymphocyte (test code=LYMPH) 6.7 % 12-44 Monocyte (test code=MONO) 2.9 % 0-11 Eosinophil (test code=EOS) 2.5 % 0-7 Basophil (test code=BASO) 0.2 % 0-2 Neutro Abs (test code=ANEUT) 10.2 K/cumm 1.6-7.4 Lymph Abs (test code=ALYMPH) 0.8 K/cumm 0.5-4.6 [place] Abs (test code=AMONO) 0.3 K/cumm 0.0-1.2 Eos Abs (test code=AEOS) 0.29 K/cumm 0.00-0.74 Baso Abs (test code=ABASO) 0.0 K/cumm 0.00-0.21 Hepatic Function [id number] 15:08:00* Test Item Value Reference Range Comments Prot Total (test code=TP) 5.4 g/dL 6.4-8.3 Albumin (test code=ALB) 2.8 g/dL 3.5-5.2 A/G Ratio (test code=AGRATIO) 1.1 Ratio Globulin (test code=GLOB) 2.6 2.9-3.1 Bili Total (test code=TBIL) 0.4 mg/dL 0.1-0.9 Bili Direct (test code=DBIL) <0.2 mg/dL 0.0-0.3 Bili Indirect (test code=IBIL) 0.3 Alk Phos (test code=APHOS) 80 U/L 40-129 AST (test code=AST) 29 U/L 1-40 ALT (test code=ALT) 29 U/L 1-41 Basic Metabolic [id number] 15:08:00* Test Item Value Reference Range Comments Sodium (test code=NA) 130 mmol/L 135-145 Potassium (test code=K) 4.6 mmol/L 3.5-5.1 Chloride (test code=CL) 96 mmol/L 98-105 Carbon Dioxide (test code=CO2) 24 mmol/L 22-29 Glucose (test code=GLU) 131 mg/dL 70-115 Blood Urea Nitrogen (test code=BUN) 19 mg/dL 8-23 Creatinine (test code=CREAT) 0.6 mg/dL 0.7-1.2 Calcium (test code=CA) 8.2 mg/dL 8.3-10.5 BUN/Creatinine Ratio (test code=BCRATIO) 31.7 Anion Gap (test code=AGAP) 10 mmol/L 7-16 Estimated GFR (test code=GFR) >60 mL/min/1.73m2 eGFR (estimated Glomerular Filtration Rate) is an estimated value,calculated from the patient's serum creatinine using the MDRD equation.It is NOT the patient's actual GFR. The eGFR provides a more clinicallyuseful measure of kidney disease than serum creatinine alone.This calculation takes sex and race into account, if the informationis provided. If the race is not provided, and the patient isAfrican- [place], multiply by 1.212. If sex is not provided, and thepatient is female, multiply by 0.742. Results for patients <18 years ofage have not been validated by the MDRD study and should be interpretedwith caution.eGFR Result Interpretation:eGFR > or=60 is in the Normal RangeeGFR < 60 may mean kidney diseaseeGFR < 15 may mean kidney failureRanges recommended by the National Kidney Foundation,http://nkdep.nih.gov POC Glucose, [id number] 11:14:00* Test Item Value Reference Range Comments POC Glucose (test code=POCGLUC) 135 mg/dL 70-115 If you consider your patient critically ill, the Sunny Accu-Chek InformII metershould not be used for Glucose determinations.Draw a venous Glucose and send to the Main Lab for Analysis. POC Glucose, [id number] 08:01:00* Test Item Value Reference Range Comments POC Glucose (test code=POCGLUC) 117 mg/dL 70-115 If you consider your patient critically ill, the Sunny Accu-Chek InformII metershould not be used for Glucose determinations.Draw a venous Glucose and send to the Main Lab for Analysis. POC Glucose, [id number] 20:27:00* Test Item Value Reference Range Comments POC Glucose (test code=POCGLUC) 104 mg/dL 70-115 If you consider your patient critically ill, the Sunny Accu-Chek InformII metershould not be used for Glucose determinations.Draw a venous Glucose and send to the Main Lab for Analysis. POC Glucose, [id number] 16:00:00* Test Item Value Reference Range Comments POC Glucose (test code=POCGLUC) 124 mg/dL 70-115 If you consider your patient critically ill, the Sunny Accu-Chek InformII metershould not be used for Glucose determinations.Draw a venous Glucose and send to the Main Lab for Analysis. POC Glucose, [id number] 10:51:00* Test Item Value Reference Range Comments POC Glucose (test code=POCGLUC) 126 mg/dL 70-115 If you consider your patient critically ill, the Sunny Accu-Chek InformII metershould not be used for Glucose determinations.Draw a venous Glucose and send to the Main Lab for Analysis. POC Glucose, [id number] 04:18:00* Test Item Value Reference Range Comments POC Glucose (test code=POCGLUC) 99 mg/dL 70-115 If you consider your patient critically ill, the Sunny Accu-Chek InformII metershould not be used for Glucose determinations.Draw a venous Glucose and send to the Main Lab for Analysis. POC Glucose, [id number] 21:39:00* Test Item Value Reference Range Comments POC Glucose (test code=POCGLUC) 111 mg/dL 70-115 If you consider your patient critically ill, the Sunny Accu-Chek InformII metershould not be used for Glucose determinations.Draw a venous Glucose and send to the Main Lab for Analysis. POC Glucose, [id number] 16:57:00* Test Item Value Reference Range Comments POC Glucose (test code=POCGLUC) 100 mg/dL 70-115 Notify RN or MDIf you consider your patient critically ill, the [facility] Accu-Chek InformII metershould not be used for Glucose determinations.Draw a venous Glucose and send to the Main Lab for Analysis. POC Glucose, [id number] 11:20:00* Test Item Value Reference Range Comments POC Glucose (test code=POCGLUC) 111 mg/dL 70-115 If you consider your patient critically ill, the Sunny Accu-Chek InformII metershould not be used for Glucose determinations.Draw a venous Glucose and send to the Main Lab for Analysis. POC Glucose, [id number] 07:52:00* Test Item Value Reference Range Comments POC Glucose (test code=POCGLUC) 100 mg/dL 70-115 Notify RN or MDIf you consider your patient critically ill, the Sunny Accu-Chek InformII metershould not be used for Glucose determinations.Draw a venous Glucose and send to the Main Lab for Analysis. POC Glucose, [id number] 21:34:00* Test Item Value Reference Range Comments POC Glucose (test code=POCGLUC) 87 mg/dL 70-115 If you consider your patient critically ill, the [facility] Accu-Chek InformII metershould not be used for Glucose determinations.Draw a venous Glucose and send to the Main Lab for Analysis. POC Glucose, [id number] 16:46:00* Test Item Value Reference Range Comments POC Glucose (test code=POCGLUC) 146 mg/dL 70-115 If you consider your patient critically ill, the [facility] Accu-Chek InformII metershould not be used for Glucose determinations.Draw a venous Glucose and send to the Main Lab for Analysis. POC Glucose, [id number] 12:10:00* Test Item Value Reference Range Comments POC Glucose (test code=POCGLUC) 145 mg/dL 70-115 If you consider your patient critically ill, the Sunny Accu-Chek InformII metershould not be used for Glucose determinations.Draw a venous Glucose and send to the Main Lab for Analysis. POC Glucose, [id number] 07:55:00* Test Item Value Reference Range Comments POC Glucose (test code=POCGLUC) 160 mg/dL 70-115 Notify RN or MDIf you consider your patient critically ill, the [facility] Accu-Chek InformII metershould not be used for Glucose determinations.Draw a venous Glucose and send to the Main Lab for Analysis. POC Glucose, [id number] 05:44:00* Test Item Value Reference Range Comments POC Glucose (test code=POCGLUC) 188 mg/dL 70-115 If you consider your patient critically ill, the [facility] Accu-Chek InformII metershould not be used for Glucose determinations.Draw a venous Glucose and send to the Main Lab for Analysis. POC Glucose, [id number] 21:28:00* Test Item Value Reference Range Comments POC Glucose (test code=POCGLUC) 179 mg/dL 70-115 If you consider your patient critically ill, the Sunny Accu-Chek InformII metershould not be used for Glucose determinations.Draw a venous Glucose and send to the Main Lab for Analysis. POC Glucose, [id number] 16:13:00* Test Item Value Reference Range Comments POC Glucose (test code=POCGLUC) 188 mg/dL 70-115 If you consider your patient critically ill, the Sunny Accu-Chek InformII metershould not be used for Glucose determinations.Draw a venous Glucose and send to the Main Lab for Analysis. POC Glucose, [id number] 10:29:00* Test Item Value Reference Range Comments POC Glucose (test code=POCGLUC) 222 mg/dL 70-115 If you consider your patient critically ill, the Sunny Accu-Chek InformII metershould not be used for Glucose determinations.Draw a venous Glucose and send to the Main Lab for Analysis. Magnesium, [id number] 09:38:00* Test Item Value Reference Range Comments Magnesium (test code=MG) 2.1 mg/dL 1.7-2.5 Basic Metabolic [id number] 09:38:00* Test Item Value Reference Range Comments Sodium (test code=NA) 136 mmol/L 135-145 Potassium (test code=K) 3.7 mmol/L 3.5-5.1 Chloride (test code=CL) 100 mmol/L 98-105 Carbon Dioxide (test code=CO2) 26 mmol/L 22-29 Glucose (test code=GLU) 185 mg/dL 70-115 Blood Urea Nitrogen (test code=BUN) 27 mg/dL 8-23 Creatinine (test code=CREAT) 0.5 mg/dL 0.7-1.2 Calcium (test code=CA) 8.0 mg/dL 8.3-10.5 BUN/Creatinine Ratio (test code=BCRATIO) 54.0 Anion Gap (test code=AGAP) 10 mmol/L 7-16 Estimated GFR (test code=GFR) >60 mL/min/1.73m2 eGFR (estimated Glomerular Filtration Rate) is an estimated value,calculated from the patient's serum creatinine using the MDRD equation.It is NOT the patient's actual GFR. The eGFR provides a more clinicallyuseful measure of kidney disease than serum creatinine alone.This calculation takes sex and race into account, if the informationis provided. If the race is not provided, and the patient isAfrican- [place], multiply by 1.212. If sex is not provided, and thepatient is female, multiply by 0.742. Results for patients <18 years ofage have not been validated by the MDRD study and should be interpretedwith caution.eGFR Result Interpretation:eGFR > or=60 is in the Normal RangeeGFR < 60 may mean kidney diseaseeGFR < 15 may mean kidney failureRanges recommended by the National Kidney Foundation,http://nkdep.nih.gov [id number] 09:38:00* Test Item Value Reference Range Comments Phosphorus (test code=PO4) 2.9 mg/dL 2.70-4.50 CBC with [id number] 09:21:00* Test Item Value Reference Range Comments WBC (test code=WBC) 13.1 K/cumm 4.4-10.5 RBC (test code=RBC) 3.16 M/cumm 4.10-5.70 Hemoglobin (test code=HGB) 9.5 gm/dL 13.4-17.4 Hematocrit (test code=HCT) 29.0 % 38.7-52.0 MCV (test code=MCV) 91.9 fL 80-100 MCH (test code=MCH) 30.1 pg 27.0-32.5 MCHC (test code=MCHC) 32.8 g/dL 32.0-37.5 RDW (test code=RDW) 14.3 % 11.5-14.5 Platelet Count (test code=PLTCT) 399 K/cumm 140-440 MPV (test code=MPV) 8.1 fL Diff Method (test code=DIFFM) Auto Neutrophil (test code=NEUT) 86.4 % 36-70 Lymphocyte (test code=LYMPH) 8.7 % 12-44 Monocyte (test code=MONO) 4.2 % 0-11 Eosinophil (test code=EOS) 0.5 % 0-7 Basophil (test code=BASO) 0.2 % 0-2 Neutro Abs (test code=ANEUT) 11.3 K/cumm 1.6-7.4 Lymph Abs (test code=ALYMPH) 1.1 K/cumm 0.5-4.6 [place] Abs (test code=AMONO) 0.6 K/cumm 0.0-1.2 Eos Abs (test code=AEOS) 0.06 K/cumm 0.00-0.74 Baso Abs (test code=ABASO) 0.0 K/cumm 0.00-0.21 POC Glucose, [id number] 06:52:00* Test Item Value Reference Range Comments POC Glucose (test code=POCGLUC) 170 mg/dL 70-115 If you consider your patient critically ill, the Sunny Accu-Chek InformII metershould not be used for Glucose determinations.Draw a venous Glucose and send to the Main Lab for Analysis. POC Glucose, [id number] 05:03:00* Test Item Value Reference Range Comments POC Glucose (test code=POCGLUC) 192 mg/dL 70-115 Notify RN or MDIf you consider your patient critically ill, the Sunny Accu-Chek InformII metershould not be used for Glucose determinations.Draw a venous Glucose and send to the Main Lab for Analysis. POC Glucose, [id number] 22:05:00* Test Item Value Reference Range Comments POC Glucose (test code=POCGLUC) 127 mg/dL 70-115 Notify RN or MDIf you consider your patient critically ill, the Sunny Accu-Chek InformII metershould not be used for Glucose determinations.Draw a venous Glucose and send to the Main Lab for Analysis. POC Glucose, [id number] 16:13:00* Test Item Value Reference Range Comments POC Glucose (test code=POCGLUC) 99 mg/dL 70-115 If you consider your patient critically ill, the Sunny Accu-Chek InformII metershould not be used for Glucose determinations.Draw a venous Glucose and send to the Main Lab for Analysis. POC Glucose, [id number] 11:03:00* Test Item Value Reference Range Comments POC Glucose (test code=POCGLUC) 103 mg/dL 70-115 If you consider your patient critically ill, the Sunny Accu-Chek InformII metershould not be used for Glucose determinations.Draw a venous Glucose and send to the Main Lab for Analysis. POC Glucose, [id number] 07:20:00* Test Item Value Reference Range Comments POC Glucose (test code=POCGLUC) 94 mg/dL 70-115 If you consider your patient critically ill, the Sunny Accu-Chek InformII metershould not be used for Glucose determinations.Draw a venous Glucose and send to the Main Lab for Analysis. POC Glucose, [id number] 21:34:00* Test Item Value Reference Range Comments POC Glucose (test code=POCGLUC) 129 mg/dL 70-115 Notify RN or MDIf you consider your patient critically ill, the Sunny Accu-Chek InformII metershould not be used for Glucose determinations.Draw a venous Glucose and send to the Main Lab for Analysis. POC Glucose, [id number] 16:17:00* Test Item Value Reference Range Comments POC Glucose (test code=POCGLUC) 120 mg/dL 70-115 If you consider your patient critically ill, the Sunny Accu-Chek InformII metershould not be used for Glucose determinations.Draw a venous Glucose and send to the Main Lab for Analysis. POC Glucose, [id number] 11:14:00* Test Item Value Reference Range Comments POC Glucose (test code=POCGLUC) 111 mg/dL 70-115 If you consider your patient critically ill, the Sunny Accu-Chek InformII metershould not be used for Glucose determinations.Draw a venous Glucose and send to the Main Lab for Analysis. POC Glucose, [id number] 07:59:00* Test Item Value Reference Range Comments POC Glucose (test code=POCGLUC) 124 mg/dL 70-115 If you consider your patient critically ill, the Sunny Accu-Chek InformII metershould not be used for Glucose determinations.Draw a venous Glucose and send to the Main Lab for Analysis. POC Glucose, [id number] 07:59:00* Test Item Value Reference Range Comments POC Glucose (test code=POCGLUC) 121 mg/dL 70-115 If you consider your patient critically ill, the Sunny Accu-Chek InformII metershould not be used for Glucose determinations.Draw a venous Glucose and send to the Main Lab for Analysis. POC Glucose, [id number] 22:58:00* Test Item Value Reference Range Comments POC Glucose (test code=POCGLUC) 95 mg/dL 70-115 If you consider your patient critically ill, the Sunny Accu-Chek InformII metershould not be used for Glucose determinations.Draw a venous Glucose and send to the Main Lab for Analysis. Culture, Blood [id number] 19:36:00Specimen: BloodCollected: 07/26/2016 12 :15 Status: Final Last Updated: 07/31/2016 19:36 Culture Result ( Final) (Final) No Growth After 5 Days POC Glucose, [id number] 16:35:00 * Test Item Value Reference Range Comments POC Glucose (test code=POCGLUC) 120 mg/dL 70-115 If you consider your patient critically ill, the Sunny Accu-Chek InformII metershould not be used for Glucose determinations.Draw a venous Glucose and send to the Main Lab for Analysis. POC Glucose, [id number] 08:20:00* Test Item Value Reference Range Comments POC Glucose (test code=POCGLUC) 162 mg/dL 70-115 If you consider your patient critically ill, the Sunny Accu-Chek InformII metershould not be used for Glucose determinations.Draw a venous Glucose and send to the Main Lab for Analysis. Basic Metabolic [id number] 05:26:00* Test Item Value Reference Range Comments Sodium (test code=NA) 133 mmol/L 135-145 Potassium (test code=K) 4.2 mmol/L 3.5-5.1 Chloride (test code=CL) 99 mmol/L 98-105 Carbon Dioxide (test code=CO2) 22 mmol/L 22-29 Glucose (test code=GLU) 175 mg/dL 70-115 Blood Urea Nitrogen (test code=BUN) 20 mg/dL 8-23 Creatinine (test code=CREAT) 0.6 mg/dL 0.7-1.2 Calcium (test code=CA) 7.4 mg/dL 8.3-10.5 BUN/Creatinine Ratio (test code=BCRATIO) 33.3 Anion Gap (test code=AGAP) 12 mmol/L 7-16 Estimated GFR (test code=GFR) >60 mL/min/1.73m2 eGFR (estimated Glomerular Filtration Rate) is an estimated value,calculated from the patient's serum creatinine using the MDRD equation.It is NOT the patient's actual GFR. The eGFR provides a more clinicallyuseful measure of kidney disease than serum creatinine alone.This calculation takes sex and race into account, if the informationis provided. If the race is not provided, and the patient isAfrican- [place], multiply by 1.212. If sex is not provided, and thepatient is female, multiply by 0.742. Results for patients <18 years ofage have not been validated by the MDRD study and should be interpretedwith caution.eGFR Result Interpretation:eGFR > or=60 is in the Normal RangeeGFR < 60 may mean kidney diseaseeGFR < 15 may mean kidney failureRanges recommended by the National Kidney Foundation,http://nkdep.nih.gov Hepatic Function [id number] 05:26:00* Test Item Value Reference Range Comments Prot Total (test code=TP) 4.3 g/dL 6.4-8.3 Albumin (test code=ALB) 2.6 g/dL 3.5-5.2 A/G Ratio (test code=AGRATIO) 1.5 Ratio Globulin (test code=GLOB) 1.7 2.9-3.1 Bili Total (test code=TBIL) 0.5 mg/dL 0.1-0.9 Bili Direct (test code=DBIL) <0.2 mg/dL 0.0-0.3 Bili Indirect (test code=IBIL) 0.4 Alk Phos (test code=APHOS) 48 U/L 40-129 AST (test code=AST) 16 U/L 1-40 ALT (test code=ALT) 10 U/L 1-41 Magnesium, [id number] 05:26:00* Test Item Value Reference Range Comments Magnesium (test code=MG) 2.1 mg/dL 1.7-2.5 [id number] 04:55:00* Test Item Value Reference Range Comments Phosphorus (test code=PO4) 2.1 mg/dL 2.70-4.50 CBC with [id number] 04:14:00* Test Item Value Reference Range Comments WBC (test code=WBC) 11.6 K/cumm 4.4-10.5 RBC (test code=RBC) 3.30 M/cumm 4.10-5.70 Hemoglobin (test code=HGB) 10.3 gm/dL 13.4-17.4 Hematocrit (test code=HCT) 31.2 % 38.7-52.0 MCV (test code=MCV) 94.6 fL 80-100 MCH (test code=MCH) 31.2 pg 27.0-32.5 MCHC (test code=MCHC) 33.0 g/dL 32.0-37.5 RDW (test code=RDW) 14.2 % 11.5-14.5 Platelet Count (test code=PLTCT) 182 K/cumm 140-440 MPV (test code=MPV) 9.0 fL Diff Method (test code=DIFFM) Auto Neutrophil (test code=NEUT) 81.8 % 36-70 Lymphocyte (test code=LYMPH) 7.9 % 12-44 Monocyte (test code=MONO) 8.9 % 0-11 Eosinophil (test code=EOS) 1.4 % 0-7 Basophil (test code=BASO) 0.1 % 0-2 Neutro Abs (test code=ANEUT) 9.5 K/cumm 1.6-7.4 Lymph Abs (test code=ALYMPH) 0.9 K/cumm 0.5-4.6 [place] Abs (test code=AMONO) 1.0 K/cumm 0.0-1.2 Eos Abs (test code=AEOS) 0.16 K/cumm 0.00-0.74 Baso Abs (test code=ABASO) 0.0 K/cumm 0.00-0.21 POC Glucose, [id number] 20:54:00* Test Item Value Reference Range Comments POC Glucose (test code=POCGLUC) 123 mg/dL 70-115 If you consider your patient critically ill, the Sunny Accu-Chek InformII metershould not be used for Glucose determinations.Draw a venous Glucose and send to the Main Lab for Analysis. POC Glucose, [id number] 15:44:00* Test Item Value Reference Range Comments POC Glucose (test code=POCGLUC) 128 mg/dL 70-115 If you consider your patient critically ill, the Sunny Accu-Chek InformII metershould not be used for Glucose determinations.Draw a venous Glucose and send to the Main Lab for Analysis. POC Glucose, [id number] 10:49:00* Test Item Value Reference Range Comments POC Glucose (test code=POCGLUC) 136 mg/dL 70-115 If you consider your patient critically ill, the Sunny Accu-Chek InformII metershould not be used for Glucose determinations.Draw a venous Glucose and send to the Main Lab for Analysis. Comprehensive Metabolic [id number] 05:16:00* Test Item Value Reference Range Comments Sodium (test code=NA) 137 mmol/L 135-145 Potassium (test code=K) 3.7 mmol/L 3.5-5.1 Chloride (test code=CL) 102 mmol/L 98-105 Carbon Dioxide (test code=CO2) 23 mmol/L 22-29 Glucose (test code=GLU) 133 mg/dL 70-115 Blood Urea Nitrogen (test code=BUN) 22 mg/dL 8-23 Creatinine (test code=CREAT) 0.7 mg/dL 0.7-1.2 Calcium (test code=CA) 8.2 mg/dL 8.3-10.5 Prot Total (test code=TP) 4.5 g/dL 6.4-8.3 Albumin (test code=ALB) 2.4 g/dL 3.5-5.2 A/G Ratio (test code=AGRATIO) 1.1 Ratio Globulin (test code=GLOB) 2.1 2.9-3.1 Bili Total (test code=TBIL) 0.4 mg/dL 0.1-0.9 Alk Phos (test code=APHOS) 38 U/L 40-129 AST (test code=AST) 14 U/L 1-40 ALT (test code=ALT) 10 U/L 1-41 BUN/Creatinine Ratio (test code=BCRATIO) 31.4 Anion Gap (test code=AGAP) 12 mmol/L 7-16 Estimated GFR (test code=GFR) >60 mL/min/1.73m2 eGFR (estimated Glomerular Filtration Rate) is an estimated value,calculated from the patient's serum creatinine using the MDRD equation.It is NOT the patient's actual GFR. The eGFR provides a more clinicallyuseful measure of kidney disease than serum creatinine alone.This calculation takes sex and race into account, if the informationis provided. If the race is not provided, and the patient isAfrican- [place], multiply by 1.212. If sex is not provided, and thepatient is female, multiply by 0.742. Results for patients <18 years ofage have not been validated by the MDRD study and should be interpretedwith caution.eGFR Result Interpretation:eGFR > or=60 is in the Normal RangeeGFR < 60 may mean kidney diseaseeGFR < 15 may mean kidney failureRanges recommended by the National Kidney Foundation,http://nkdep.nih.gov Magnesium, [id number] 05:16:00* Test Item Value Reference Range Comments Magnesium (test code=MG) 2.1 mg/dL 1.7-2.5 [id number] 05:16:00* Test Item Value Reference Range Comments Phosphorus (test code=PO4) 2.2 mg/dL 2.70-4.50 CBC with [id number] 04:52:00* Test Item Value Reference Range Comments WBC (test code=WBC) 13.5 K/cumm 4.4-10.5 RBC (test code=RBC) 2.99 M/cumm 4.10-5.70 Hemoglobin (test code=HGB) 9.3 gm/dL 13.4-17.4 Hematocrit (test code=HCT) 28.3 % 38.7-52.0 MCV (test code=MCV) 94.6 fL 80-100 MCH (test code=MCH) 31.0 pg 27.0-32.5 MCHC (test code=MCHC) 32.8 g/dL 32.0-37.5 RDW (test code=RDW) 14.3 % 11.5-14.5 Platelet Count (test code=PLTCT) 157 K/cumm 140-440 MPV (test code=MPV) 9.7 fL Diff Method (test code=DIFFM) Auto Neutrophil (test code=NEUT) 88.6 % 36-70 Lymphocyte (test code=LYMPH) 4.9 % 12-44 Monocyte (test code=MONO) 6.4 % 0-11 Eosinophil (test code=EOS) 0.1 % 0-7 Basophil (test code=BASO) 0.1 % 0-2 Neutro Abs (test code=ANEUT) 11.9 K/cumm 1.6-7.4 Lymph Abs (test code=ALYMPH) 0.6 K/cumm 0.5-4.6 [place] Abs (test code=AMONO) 0.9 K/cumm 0.0-1.2 Eos Abs (test code=AEOS) 0.02 K/cumm 0.00-0.74 Baso Abs (test code=ABASO) 0.0 K/cumm 0.00-0.21 POC Glucose, [id number] 21:58:00* Test Item Value Reference Range Comments POC Glucose (test code=POCGLUC) 137 mg/dL 70-115 If you consider your patient critically ill, the Sunny Accu-Chek InformII metershould not be used for Glucose determinations.Draw a venous Glucose and send to the Main Lab for Analysis. POC Glucose, [id number] 16:03:00* Test Item Value Reference Range Comments POC Glucose (test code=POCGLUC) 166 mg/dL 70-115 If you consider your patient critically ill, the Sunny Accu-Chek InformII metershould not be used for Glucose determinations.Draw a venous Glucose and send to the Main Lab for Analysis. POC Glucose, [id number] 10:52:00* Test Item Value Reference Range Comments POC Glucose (test code=POCGLUC) 198 mg/dL 70-115 If you consider your patient critically ill, the Sunny Accu-Chek InformII metershould not be used for Glucose determinations.Draw a venous Glucose and send to the Main Lab for Analysis. CBC with [id number] 05:16:00* Test Item Value Reference Range Comments WBC (test code=WBC) 10.4 K/cumm 4.4-10.5 RBC (test code=RBC) 2.83 M/cumm 4.10-5.70 Hemoglobin (test code=HGB) 8.5 gm/dL 13.4-17.4 Hematocrit (test code=HCT) 26.8 % 38.7-52.0 MCV (test code=MCV) 94.7 fL 80-100 MCH (test code=MCH) 30.2 pg 27.0-32.5 MCHC (test code=MCHC) 31.8 g/dL 32.0-37.5 RDW (test code=RDW) 13.9 % 11.5-14.5 Platelet Count (test code=PLTCT) 118 K/cumm 140-440 MPV (test code=MPV) 8.1 fL Diff Method (test code=DIFFM) Manual Neutrophil (test code=NEUT) 76.0 % 36-70 Bands (test code=BAND) 15.0 % 0-6 Lymphocyte (test code=LYMPH) 2.0 % 12-44 Monocyte (test code=MONO) 7.0 % 0-11 Neutro Abs (test code=ANEUT) 9.5 K/cumm 1.6-7.4 Lymph Abs (test code=ALYMPH) 0.2 K/cumm 0.5-4.6 [place] Abs (test code=AMONO) 0.7 K/cumm 0.0-1.2 RBC Morphology (test code=RBCMRPH) Normal Platelet Est (test code=PLTEST) Decreased Platelet on Smear Basic Metabolic [id number] 04:08:00* Test Item Value Reference Range Comments Sodium (test code=NA) 137 mmol/L 135-145 Potassium (test code=K) 3.7 mmol/L 3.5-5.1 Chloride (test code=CL) 104 mmol/L 98-105 Carbon Dioxide (test code=CO2) 25 mmol/L 22-29 Glucose (test code=GLU) 192 mg/dL 70-115 Blood Urea Nitrogen (test code=BUN) 23 mg/dL 8-23 Creatinine (test code=CREAT) 0.7 mg/dL 0.7-1.2 Calcium (test code=CA) 7.6 mg/dL 8.3-10.5 BUN/Creatinine Ratio (test code=BCRATIO) 32.9 Anion Gap (test code=AGAP) 8 mmol/L 7-16 Estimated GFR (test code=GFR) >60 mL/min/1.73m2 eGFR (estimated Glomerular Filtration Rate) is an estimated value,calculated from the patient's serum creatinine using the MDRD equation.It is NOT the patient's actual GFR. The eGFR provides a more clinicallyuseful measure of kidney disease than serum creatinine alone.This calculation takes sex and race into account, if the informationis provided. If the race is not provided, and the patient isAfrican- [place], multiply by 1.212. If sex is not provided, and thepatient is female, multiply by 0.742. Results for patients <18 years ofage have not been validated by the MDRD study and should be interpretedwith caution.eGFR Result Interpretation:eGFR > or=60 is in the Normal RangeeGFR < 60 may mean kidney diseaseeGFR < 15 may mean kidney failureRanges recommended by the National Kidney Foundation,http://nkdep.nih.gov [id number] 04:08:00* Test Item Value Reference Range Comments Phosphorus (test code=PO4) 1.6 mg/dL 2.70-4.50 Magnesium, [id number] 04:08:00* Test Item Value Reference Range Comments Magnesium (test code=MG) 2.3 mg/dL 1.7-2.5 Blood Gas+Lytes+Glu+Ca+Hgb+Hct+[id number] 08:37:00* Test Item Value Reference Range Comments pH, Blood Gas (test code=BGPH) 7.434 pH Units 7.35-7.45 pCO2 (test code=PCO2) 39.4 mm Hg 35-45 pO2 (test code=PO2) 72.5 mm Hg 80-100 Bicarbonate (test code=HCO3) 26.4 mmol/L 22.0-26.0 Base Excess (test code=BE) 2.0 mmol/L O2 Saturation (test code=O2SAT) 96.1 % 80.0-100.0 Sodium, Blood Gas (test code=BGNA) 136 mmol/L 135-145 Potassium, Blood Gas (test code=BGK) 3.4 mmol/L 3.5-4.5 Chloride, Blood Gas (test code=BGCL) 106 mmol/L 98-105 Calcium, Ionized, Blood Gas (test code=BGCAI) 1.15 mmol/L 1.00-1.50 Glucose, Blood Gas (test code=BGGLU) 136 mg/dL 75-115 tHB (test code=RTHB) 10.3 gm/dL 12.2-17.4 Hematocrit, Blood Gas (test code=BGHCT) 31.7 % 34.0-52.0 O2Hb (test code=RO2HB) 94 80-100 Carboxyhemoglobin (test code=CARHGB) 1.1 % 0.0-20.0 Methemoglobin (test code=METHGB) 1.6 % 0.0-20.0 FIO2 % (test code=FIO2) 40 % Patient Temperature (test code=PTTEMP) 37.0 Degrees Celcius Comment (test code=COMMENT) dvaid- rn Triston Massey @ [phone] ebrown Puncture Site (test code=PUNSITE) Art line Drawing Tech ID (test code=DRAWTECH) ebrown iPAP (test code=IPAP) 0 cmH2O Peep (test code=RPEEP) 5 Respiratory Rate (test code=RESP RATE) 16 Tidal Volume (test code=TIDALVOL) 0.500 Liters Lactic Acid, Blood Gas (test code=BGLA) 1.2 mmol/L CBC with [id number] 08:28:00* Test Item Value Reference Range Comments WBC (test code=WBC) 8.7 K/cumm 4.4-10.5 RBC (test code=RBC) 2.98 M/cumm 4.10-5.70 Hemoglobin (test code=HGB) 9.1 gm/dL 13.4-17.4 VERIFIED BY REPEAT TESTINGREAD BACK LAB VALUESPost SurgeryUn[facility] @ [facility]:11 07/28/2016 eo Hematocrit (test code=HCT) 28.2 % 38.7-52.0 VERIFIED BY REPEAT TESTINGREAD BACK LAB VALUESPost SurgeryUnc Healthus [place] @ 07:11 07/28/2016 eo MCV (test code=MCV) 94.5 fL 80-100 MCH (test code=MCH) 30.4 pg 27.0-32.5 MCHC (test code=MCHC) 32.2 g/dL 32.0-37.5 RDW (test code=RDW) 14.0 % 11.5-14.5 Platelet Count (test code=PLTCT) 118 K/cumm 140-440 MPV (test code=MPV) 8.3 fL Diff Method (test code=DIFFM) Manual Neutrophil (test code=NEUT) 69.0 % 36-70 Bands (test code=BAND) 19.0 % 0-6 Lymphocyte (test code=LYMPH) 3.0 % 12-44 Monocyte (test code=MONO) 8.0 % 0-11 Metamyelocyte (test code=METAMYE) 1.0 % 0-0 Neutro Abs (test code=ANEUT) 7.7 K/cumm 1.6-7.4 Lymph Abs (test code=ALYMPH) 0.3 K/cumm 0.5-4.6 [place] Abs (test code=AMONO) 0.7 K/cumm 0.0-1.2 RBC Morphology (test code=RBCMRPH) Moderate Hypochromia Platelet Est (test code=PLTEST) Adequate Platelets on Smear Culture, [id number] 08:06:00Specimen: UrineCollected: 07/26/2016 12:50 Status: Final Last Updated: 07/28/2016 08:06 Culture Result (Final ) (Final) 07/27/16 No growth 24 hours 07/28/16 No growth 48 hours [id number] 05:42:00* Test Item Value Reference Range Comments Phosphorus (test code=PO4) 2.8 mg/dL 2.70-4.50 Magnesium, [id number] 05:42:00* Test Item Value Reference Range Comments Magnesium (test code=MG) 2.1 mg/dL 1.7-2.5 Basic Metabolic [id number] 05:42:00* Test Item Value Reference Range Comments Sodium (test code=NA) 141 mmol/L 135-145 Potassium (test code=K) 3.8 mmol/L 3.5-5.1 Chloride (test code=CL) 104 mmol/L 98-105 Carbon Dioxide (test code=CO2) 27 mmol/L 22-29 Glucose (test code=GLU) 128 mg/dL 70-115 Blood Urea Nitrogen (test code=BUN) 28 mg/dL 8-23 Creatinine (test code=CREAT) 0.9 mg/dL 0.7-1.2 Calcium (test code=CA) 7.3 mg/dL 8.3-10.5 BUN/Creatinine Ratio (test code=BCRATIO) 31.1 Anion Gap (test code=AGAP) 10 mmol/L 7-16 Estimated GFR (test code=GFR) >60 mL/min/1.73m2 eGFR (estimated Glomerular Filtration Rate) is an estimated value,calculated from the patient's serum creatinine using the MDRD equation.It is NOT the patient's actual GFR. The eGFR provides a more clinicallyuseful measure of kidney disease than serum creatinine alone.This calculation takes sex and race into account, if the informationis provided. If the race is not provided, and the patient isAfrican- [place], multiply by 1.212. If sex is not provided, and thepatient is female, multiply by 0.742. Results for patients <18 years ofage have not been validated by the MDRD study and should be interpretedwith caution.eGFR Result Interpretation:eGFR > or=60 is in the Normal RangeeGFR < 60 may mean kidney diseaseeGFR < 15 may mean kidney failureRanges recommended by the National Kidney Foundation,http://nkdep.nih.gov Hepatic Function [id number] 05:40:00* Test Item Value Reference Range Comments Prot Total (test code=TP) 4.2 g/dL 6.4-8.3 Albumin (test code=ALB) 2.7 g/dL 3.5-5.2 A/G Ratio (test code=AGRATIO) 1.8 Ratio Globulin (test code=GLOB) 1.5 2.9-3.1 Bili Total (test code=TBIL) 1.2 mg/dL 0.1-0.9 Bili Direct (test code=DBIL) 0.6 mg/dL 0.0-0.3 Bili Indirect (test code=IBIL) 0.6 Alk Phos (test code=APHOS) 25 U/L 40-129 AST (test code=AST) 17 U/L 1-40 ALT (test code=ALT) 18 U/L 1-41 Blood [id number] 21:07:00* Test Item Value Reference Range Comments pH, Blood Gas (test code=BGPH) 7.486 pH Units 7.35-7.45 pCO2 (test code=PCO2) 38.1 mm Hg 35-45 pO2 (test code=PO2) 88.6 mm Hg 80-100 Bicarbonate (test code=HCO3) 28.8 mmol/L 22.0-26.0 Base Excess (test code=BE) 5.1 mmol/L O2 Saturation (test code=O2SAT) 97.8 % 80.0-100.0 tHB (test code=RTHB) 10.9 gm/dL 12.2-17.4 Hematocrit, Blood Gas (test code=BGHCT) 33.3 % 34.0-52.0 O2Hb (test code=RO2HB) 96 80-100 Carboxyhemoglobin (test code=CARHGB) 0.9 % 0.0-20.0 Methemoglobin (test code=METHGB) 1.5 % 0.0-20.0 FIO2 % (test code=FIO2) 50 % Patient Temperature (test code=PTTEMP) 37.0 Degrees Celcius Comment (test code=COMMENT) [email or web address]@[id number]/27/[email or web address].jz Puncture Site (test code=PUNSITE) Art line iPAP (test code=IPAP) 0 cmH2O Peep (test code=RPEEP) 5 Respiratory Rate (test code=RESP RATE) 16 Tidal Volume (test code=TIDALVOL) 0.500 Liters Prothrombin [id number] 20:32:00* Test Item Value Reference Range Comments PT (test code=PT) 12.30 seconds 9.78-13.35 INR (test code=INR) 1.08 Ratio 0.6-1.2 Basic Metabolic [id number] 18:42:00* Test Item Value Reference Range Comments Sodium (test code=NA) 141 mmol/L 135-145 Potassium (test code=K) 3.0 mmol/L 3.5-5.1 Chloride (test code=CL) 101 mmol/L 98-105 Carbon Dioxide (test code=CO2) 25 mmol/L 22-29 Glucose (test code=GLU) 93 mg/dL 70-115 Blood Urea Nitrogen (test code=BUN) 29 mg/dL 8-23 Creatinine (test code=CREAT) 1.1 mg/dL 0.7-1.2 Calcium (test code=CA) 8.4 mg/dL 8.3-10.5 BUN/Creatinine Ratio (test code=BCRATIO) 26.4 Anion Gap (test code=AGAP) 15 mmol/L 7-16 Estimated GFR (test code=GFR) >60 mL/min/1.73m2 eGFR (estimated Glomerular Filtration Rate) is an estimated value,calculated from the patient's serum creatinine using the MDRD equation.It is NOT the patient's actual GFR. The eGFR provides a more clinicallyuseful measure of kidney disease than serum creatinine alone.This calculation takes sex and race into account, if the informationis provided. If the race is not provided, and the patient isAfrican- [place], multiply by 1.212. If sex is not provided, and thepatient is female, multiply by 0.742. Results for patients <18 years ofage have not been validated by the MDRD study and should be interpretedwith caution.eGFR Result Interpretation:eGFR > or=60 is in the Normal RangeeGFR < 60 may mean kidney diseaseeGFR < 15 may mean kidney failureRanges recommended by the National Kidney Foundation,http://nkdep.nih.gov [id number] 18:42:00* Test Item Value Reference Range Comments Phosphorus (test code=PO4) 2.2 mg/dL 2.70-4.50 Magnesium, [id number] 18:42:00* Test Item Value Reference Range Comments Magnesium (test code=MG) 2.3 mg/dL 1.7-2.5 Hepatic Function [id number] 18:42:00* Test Item Value Reference Range Comments Prot Total (test code=TP) 4.7 g/dL 6.4-8.3 Albumin (test code=ALB) 3.1 g/dL 3.5-5.2 A/G Ratio (test code=AGRATIO) 1.9 Ratio Globulin (test code=GLOB) 1.6 2.9-3.1 Bili Total (test code=TBIL) 1.6 mg/dL 0.1-0.9 Bili Direct (test code=DBIL) 1.1 mg/dL 0.0-0.3 Bili Indirect (test code=IBIL) 0.5 Alk Phos (test code=APHOS) 31 U/L 40-129 AST (test code=AST) 24 U/L 1-40 ALT (test code=ALT) 31 U/L 1-41 Blood Gas+Lytes+Glu+Ca+Hgb+Hct+[id number] 12:21:00* Test Item Value Reference Range Comments pH, Blood Gas (test code=BGPH) 7.417 pH Units 7.35-7.45 pCO2 (test code=PCO2) 44.7 mm Hg 35-45 pO2 (test code=PO2) 67.5 mm Hg 80-100 Bicarbonate (test code=HCO3) 28.8 mmol/L 22.0-26.0 Base Excess (test code=BE) 3.7 mmol/L O2 Saturation (test code=O2SAT) 94.1 % 80.0-100.0 Sodium, Blood Gas (test code=BGNA) 139 mmol/L 135-145 Potassium, Blood Gas (test code=BGK) 3.7 mmol/L 3.5-4.5 Chloride, Blood Gas (test code=BGCL) 103 mmol/L 98-105 Calcium, Ionized, Blood Gas (test code=BGCAI) 1.05 mmol/L 1.00-1.50 Glucose, Blood Gas (test code=BGGLU) 153 mg/dL 75-115 tHB (test code=RTHB) 11.7 gm/dL 12.2-17.4 Hematocrit, Blood Gas (test code=BGHCT) 35.7 % 34.0-52.0 O2Hb (test code=RO2HB) 92 80-100 Carboxyhemoglobin (test code=CARHGB) 1.0 % 0.0-20.0 Methemoglobin (test code=METHGB) 1.4 % 0.0-20.0 FIO2 % (test code=FIO2) 100 % Patient Temperature (test code=PTTEMP) 37.0 Degrees Celcius Puncture Site (test code=PUNSITE) Art line [employer]ing [employer] ID (test code=[employer]TE[employer]) D Lactic Acid, Blood Gas (test code=BGLA) 1.6 mmol/L Respiratory Rate (test code=RESP RATE) 0 Blood Gas+Lytes+Glu+Ca+Hgb+Hct+[id number] 11:02:00* Test Item Value Reference Range Comments pH, Blood Gas (test code=BGPH) 7.483 pH Units 7.35-7.45 pCO2 (test code=PCO2) 43.1 mm Hg 35-45 pO2 (test code=PO2) 187.0 mm Hg 80-100 Bicarbonate (test code=HCO3) 32.3 mmol/L 22.0-26.0 Base Excess (test code=BE) 8.0 mmol/L O2 Saturation (test code=O2SAT) 98.1 % 80.0-100.0 Sodium, Blood Gas (test code=BGNA) 139 mmol/L 135-145 Potassium, Blood Gas (test code=BGK) 2.8 mmol/L 3.5-4.5 Chloride, Blood Gas (test code=BGCL) 99 mmol/L 98-105 Calcium, Ionized, Blood Gas (test code=BGCAI) 1.12 mmol/L 1.00-1.50 Glucose, Blood Gas (test code=BGGLU) 144 mg/dL 75-115 tHB (test code=RTHB) 11.4 gm/dL 12.2-17.4 Hematocrit, Blood Gas (test code=BGHCT) 34.9 % 34.0-52.0 O2Hb (test code=RO2HB) 97 80-100 Carboxyhemoglobin (test code=CARHGB) 0.0 % 0.0-20.0 Methemoglobin (test code=METHGB) 1.4 % 0.0-20.0 FIO2 % (test code=FIO2) 100 % Patient Temperature (test code=PTTEMP) 37.0 Degrees Celcius Puncture Site (test code=PUNSITE) Art line Drawing Tech ID (test code=DRAWTECH) bryson Lactic Acid, Blood Gas (test code=BGLA) 1.7 mmol/L Respiratory Rate (test code=RESP RATE) 0 Blood Type and [id number] 04:31:00* Test Item Value Reference Range Comments ABO type (test code=ABO) A Rh Type (test code=RH) Negative Antibody Screen - [id number] 04:31:00* Test Item Value Reference Range Comments Antibody Screen (test code=ABSCR) Negative Basic Metabolic [id number] 04:21:00* Test Item Value Reference Range Comments Sodium (test code=NA) 138 mmol/L 135-145 Potassium (test code=K) 3.3 mmol/L 3.5-5.1 Chloride (test code=CL) 94 mmol/L 98-105 Carbon Dioxide (test code=CO2) 32 mmol/L 22-29 Glucose (test code=GLU) 171 mg/dL 70-115 Blood Urea Nitrogen (test code=BUN) 27 mg/dL 8-23 Creatinine (test code=CREAT) 0.9 mg/dL 0.7-1.2 Calcium (test code=CA) 9.0 mg/dL 8.3-10.5 BUN/Creatinine Ratio (test code=BCRATIO) 30.0 Anion Gap (test code=AGAP) 12 mmol/L 7-16 Estimated GFR (test code=GFR) >60 mL/min/1.73m2 eGFR (estimated Glomerular Filtration Rate) is an estimated value,calculated from the patient's serum creatinine using the MDRD equation.It is NOT the patient's actual GFR. The eGFR provides a more clinicallyuseful measure of kidney disease than serum creatinine alone.This calculation takes sex and race into account, if the informationis provided. If the race is not provided, and the patient isAfrican- [place], multiply by 1.212. If sex is not provided, and thepatient is female, multiply by 0.742. Results for patients <18 years ofage have not been validated by the MDRD study and should be interpretedwith caution.eGFR Result Interpretation:eGFR > or=60 is in the Normal RangeeGFR < 60 may mean kidney diseaseeGFR < 15 may mean kidney failureRanges recommended by the National Kidney Foundation,http://nkdep.nih.gov CBC with [id number] 03:30:00* Test Item Value Reference Range Comments WBC (test code=WBC) 10.6 K/cumm 4.4-10.5 RBC (test code=RBC) 4.14 M/cumm 4.10-5.70 Hemoglobin (test code=HGB) 12.9 gm/dL 13.4-17.4 Hematocrit (test code=HCT) 39.1 % 38.7-52.0 MCV (test code=MCV) 94.5 fL 80-100 MCH (test code=MCH) 31.2 pg 27.0-32.5 MCHC (test code=MCHC) 33.0 g/dL 32.0-37.5 RDW (test code=RDW) 15.1 % 11.5-14.5 Platelet Count (test code=PLTCT) 181 K/cumm 140-440 MPV (test code=MPV) 8.6 fL Diff Method (test code=DIFFM) Auto Neutrophil (test code=NEUT) 85.4 % 36-70 Lymphocyte (test code=LYMPH) 5.8 % 12-44 Monocyte (test code=MONO) 7.9 % 0-11 Eosinophil (test code=EOS) 0.7 % 0-7 Basophil (test code=BASO) 0.2 % 0-2 Neutro Abs (test code=ANEUT) 9.1 K/cumm 1.6-7.4 Lymph Abs (test code=ALYMPH) 0.6 K/cumm 0.5-4.6 [place] Abs (test code=AMONO) 0.8 K/cumm 0.0-1.2 Eos Abs (test code=AEOS) 0.08 K/cumm 0.00-0.74 Baso Abs (test code=ABASO) 0.0 K/cumm 0.00-0.21 Magnesium, [id number] 07:44:00* Test Item Value Reference Range Comments Magnesium (test code=MG) 2.6 mg/dL 1.7-2.5 CBC with [id number] 07:25:00* Test Item Value Reference Range Comments WBC (test code=WBC) 13.9 K/cumm 4.4-10.5 RBC (test code=RBC) 4.86 M/cumm 4.10-5.70 Hemoglobin (test code=HGB) 15.0 gm/dL 13.4-17.4 Hematocrit (test code=HCT) 45.2 % 38.7-52.0 MCV (test code=MCV) 92.9 fL 80-100 MCH (test code=MCH) 30.8 pg 27.0-32.5 MCHC (test code=MCHC) 33.1 g/dL 32.0-37.5 RDW (test code=RDW) 14.4 % 11.5-14.5 Platelet Count (test code=PLTCT) 239 K/cumm 140-440 MPV (test code=MPV) 8.0 fL Diff Method (test code=DIFFM) Auto Neutrophil (test code=NEUT) 88.1 % 36-70 Lymphocyte (test code=LYMPH) 3.4 % 12-44 Monocyte (test code=MONO) 8.4 % 0-11 Eosinophil (test code=EOS) 0.1 % 0-7 Basophil (test code=BASO) 0.1 % 0-2 Neutro Abs (test code=ANEUT) 12.2 K/cumm 1.6-7.4 Lymph Abs (test code=ALYMPH) 0.5 K/cumm 0.5-4.6 [place] Abs (test code=AMONO) 1.2 K/cumm 0.0-1.2 Eos Abs (test code=AEOS) 0.01 K/cumm 0.00-0.74 Baso Abs (test code=ABASO) 0.0 K/cumm 0.00-0.21 Lactic Acid [id number] 07:13:00* Test Item Value Reference Range Comments Lactic Acid, Bld (test code=LAC) 2.2 mmol/L 0.5-1.9 [id number] 07:10:00* Test Item Value Reference Range Comments Phosphorus (test code=PO4) 4.0 mg/dL 2.70-4.50 Comprehensive Metabolic [id number] 07:10:00* Test Item Value Reference Range Comments Sodium (test code=NA) 137 mmol/L 135-145 Potassium (test code=K) 4.0 mmol/L 3.5-5.1 Chloride (test code=CL) 92 mmol/L 98-105 Carbon Dioxide (test code=CO2) 29 mmol/L 22-29 Glucose (test code=GLU) 169 mg/dL 70-115 Blood Urea Nitrogen (test code=BUN) 26 mg/dL 8-23 Creatinine (test code=CREAT) 0.9 mg/dL 0.7-1.2 Calcium (test code=CA) 9.8 mg/dL 8.3-10.5 Prot Total (test code=TP) 7.2 g/dL 6.4-8.3 Albumin (test code=ALB) 4.4 g/dL 3.5-5.2 A/G Ratio (test code=AGRATIO) 1.6 Ratio Globulin (test code=GLOB) 2.8 2.9-3.1 Bili Total (test code=TBIL) 0.5 mg/dL 0.1-0.9 Alk Phos (test code=APHOS) 54 U/L 40-129 AST (test code=AST) 37 U/L 1-40 ALT (test code=ALT) 20 U/L 1-41 BUN/Creatinine Ratio (test code=BCRATIO) 28.9 Anion Gap (test code=AGAP) 16 mmol/L 7-16 Estimated GFR (test code=GFR) >60 mL/min/1.73m2 eGFR (estimated Glomerular Filtration Rate) is an estimated value,calculated from the patient's serum creatinine using the MDRD equation.It is NOT the patient's actual GFR. The eGFR provides a more clinicallyuseful measure of kidney disease than serum creatinine alone.This calculation takes sex and race into account, if the informationis provided. If the race is not provided, and the patient isAfrican- [place], multiply by 1.212. If sex is not provided, and thepatient is female, multiply by 0.742. Results for patients <18 years ofage have not been validated by the MDRD study and should be interpretedwith caution.eGFR Result Interpretation:eGFR > or=60 is in the Normal RangeeGFR < 60 may mean kidney diseaseeGFR < 15 may mean kidney failureRanges recommended by the National Kidney Foundation,http://nkdep.nih.gov CBC with [id number] 21:55:00* Test Item Value Reference Range Comments WBC (test code=WBC) 16.3 K/cumm 4.4-10.5 RBC (test code=RBC) 4.68 M/cumm 4.10-5.70 Hemoglobin (test code=HGB) 14.2 gm/dL 13.4-17.4 VERIFIED BY REPEAT TESTINGREAD BACK LAB VALUEScalled to Padmaja MARI RN @[id number] on 07/25/2016no info was givenFS Hematocrit (test code=HCT) 43.4 % 38.7-52.0 MCV (test code=MCV) 92.8 fL 80-100 MCH (test code=MCH) 30.5 pg 27.0-32.5 MCHC (test code=MCHC) 32.8 g/dL 32.0-37.5 RDW (test code=RDW) 14.3 % 11.5-14.5 Platelet Count (test code=PLTCT) 244 K/cumm 140-440 MPV (test code=MPV) 7.7 fL Diff Method (test code=DIFFM) Auto Neutrophil (test code=NEUT) 89.1 % 36-70 Lymphocyte (test code=LYMPH) 3.9 % 12-44 Monocyte (test code=MONO) 6.6 % 0-11 Eosinophil (test code=EOS) 0.1 % 0-7 Basophil (test code=BASO) 0.5 % 0-2 Neutro Abs (test code=ANEUT) 14.6 K/cumm 1.6-7.4 Lymph Abs (test code=ALYMPH) 0.6 K/cumm 0.5-4.6 [place] Abs (test code=AMONO) 1.1 K/cumm 0.0-1.2 Eos Abs (test code=AEOS) 0.01 K/cumm 0.00-0.74 Baso Abs (test code=ABASO) 0.1 K/cumm 0.00-0.21 Lactic Acid [id number] 21:48:00* Test Item Value Reference Range Comments Lactic Acid, Bld (test code=LAC) 1.3 mmol/L 0.5-1.9 Basic Metabolic [id number] 21:39:00* Test Item Value Reference Range Comments Sodium (test code=NA) 136 mmol/L 135-145 Potassium (test code=K) 4.0 mmol/L 3.5-5.1 Chloride (test code=CL) 93 mmol/L 98-105 Carbon Dioxide (test code=CO2) 27 mmol/L 22-29 Glucose (test code=GLU) 166 mg/dL 70-115 Blood Urea Nitrogen (test code=BUN) 24 mg/dL 8-23 Creatinine (test code=CREAT) 0.8 mg/dL 0.7-1.2 Calcium (test code=CA) 9.8 mg/dL 8.3-10.5 BUN/Creatinine Ratio (test code=BCRATIO) 30.0 Anion Gap (test code=AGAP) 16 mmol/L 7-16 Estimated GFR (test code=GFR) >60 mL/min/1.73m2 eGFR (estimated Glomerular Filtration Rate) is an estimated value,calculated from the patient's serum creatinine using the MDRD equation.It is NOT the patient's actual GFR. The eGFR provides a more clinicallyuseful measure of kidney disease than serum creatinine alone.This calculation takes sex and race into account, if the informationis provided. If the race is not provided, and the patient isAfrican- [place], multiply by 1.212. If sex is not provided, and thepatient is female, multiply by 0.742. Results for patients <18 years ofage have not been validated by the MDRD study and should be interpretedwith caution.eGFR Result Interpretation:eGFR > or=60 is in the Normal RangeeGFR < 60 may mean kidney diseaseeGFR < 15 may mean kidney failureRanges recommended by the National Kidney Foundation,http://nkdep.nih.gov [id number] 21:38:00* Test Item Value Reference Range Comments Amylase (test code=CHRISTIANO) 37 U/L 28-100 CBC with [id number] 06:13:00* Test Item Value Reference Range Comments WBC (test code=WBC) 12.0 K/cumm 4.4-10.5 RBC (test code=RBC) 3.60 M/cumm 4.10-5.70 Hemoglobin (test code=HGB) 11.1 gm/dL 13.4-17.4 Hematocrit (test code=HCT) 34.2 % 38.7-52.0 MCV (test code=MCV) 95.2 fL 80-100 MCH (test code=MCH) 30.8 pg 27.0-32.5 MCHC (test code=MCHC) 32.4 g/dL 32.0-37.5 RDW (test code=RDW) 13.8 % 11.5-14.5 Platelet Count (test code=PLTCT) 199 K/cumm 140-440 MPV (test code=MPV) 8.2 fL Diff Method (test code=DIFFM) Manual Neutrophil (test code=NEUT) 88.0 % 36-70 Bands (test code=BAND) 7.0 % 0-6 Lymphocyte (test code=LYMPH) 3.0 % 12-44 Monocyte (test code=MONO) 2.0 % 0-11 Neutro Abs (test code=ANEUT) 11.4 K/cumm 1.6-7.4 Lymph Abs (test code=ALYMPH) 0.4 K/cumm 0.5-4.6 [place] Abs (test code=AMONO) 0.2 K/cumm 0.0-1.2 RBC Morphology (test code=RBCMRPH) Not Indicated Platelet Est (test code=PLTEST) Adequate Platelets on Smear Basic Metabolic [id number] 05:22:00* Test Item Value Reference Range Comments Sodium (test code=NA) 137 mmol/L 135-145 Potassium (test code=K) 4.5 mmol/L 3.5-5.1 Chloride (test code=CL) 101 mmol/L 98-105 Carbon Dioxide (test code=CO2) 27 mmol/L 22-29 Glucose (test code=GLU) 132 mg/dL 70-115 Blood Urea Nitrogen (test code=BUN) 12 mg/dL 8-23 Creatinine (test code=CREAT) 0.8 mg/dL 0.7-1.2 Calcium (test code=CA) 9.0 mg/dL 8.3-10.5 BUN/Creatinine Ratio (test code=BCRATIO) 15.0 Anion Gap (test code=AGAP) 9 mmol/L 7-16 Estimated GFR (test code=GFR) >60 mL/min/1.73m2 eGFR (estimated Glomerular Filtration Rate) is an estimated value,calculated from the patient's serum creatinine using the MDRD equation.It is NOT the patient's actual GFR. The eGFR provides a more clinicallyuseful measure of kidney disease than serum creatinine alone.This calculation takes sex and race into account, if the informationis provided. If the race is not provided, and the patient isAfrican- [place], multiply by 1.212. If sex is not provided, and thepatient is female, multiply by 0.742. Results for patients <18 years ofage have not been validated by the MDRD study and should be interpretedwith caution.eGFR Result Interpretation:eGFR > or=60 is in the Normal RangeeGFR < 60 may mean kidney diseaseeGFR < 15 may mean kidney failureRanges recommended by the National Kidney Foundation,http://nkdep.nih.gov Urinalysis [id number] 14:45:00* Test Item Value Reference Range Comments Color (test code=COLOR) Yellow Yellow,Straw,Pl yellow Clarity (test code=CLAR) Clear Clear Specific [place] (test code=SPGR) 1.014 1.001-1.035 pH (test code=PH) 7.0 5.0-9.0 Ketone (test code=KET) Negative mg/dL Negative Glucose (test code=GLUCUR) Negative mg/dL Negative Protein (test code=PROT) Negative mg/dL Negative Bilirubin (test code=BILI) Negative mg/dL Negative Occult Blood (test code=UDOB) Negative Negative Urobilinogen (test code=UROB) 0.2 mg/dL 0.2-1.0 Nitrite (test code=NIT) Negative Negative Leuk Esterase (test code=LEUK) Negative Negative Micros Exam (test code=MEXAM) Not indicated CBC with [id number] 14:39:00* Test Item Value Reference Range Comments WBC (test code=WBC) 6.5 K/cumm 4.4-10.5 RBC (test code=RBC) 4.25 M/cumm 4.10-5.70 Hemoglobin (test code=HGB) 13.5 gm/dL 13.4-17.4 Hematocrit (test code=HCT) 40.1 % 38.7-52.0 MCV (test code=MCV) 94.2 fL 80-100 MCH (test code=MCH) 31.7 pg 27.0-32.5 MCHC (test code=MCHC) 33.6 g/dL 32.0-37.5 RDW (test code=RDW) 13.6 % 11.5-14.5 Platelet Count (test code=PLTCT) 193 K/cumm 140-440 MPV (test code=MPV) 7.9 fL Diff Method (test code=DIFFM) Auto Neutrophil (test code=NEUT) 67.1 % 36-70 Lymphocyte (test code=LYMPH) 20.9 % 12-44 Monocyte (test code=MONO) 9.0 % 0-11 Eosinophil (test code=EOS) 2.2 % 0-7 Basophil (test code=BASO) 0.8 % 0-2 Neutro Abs (test code=ANEUT) 4.4 K/cumm 1.6-7.4 Lymph Abs (test code=ALYMPH) 1.4 K/cumm 0.5-4.6 [place] Abs (test code=AMONO) 0.6 K/cumm 0.0-1.2 Eos Abs (test code=AEOS) 0.14 K/cumm 0.00-0.74 Baso Abs (test code=ABASO) 0.1 K/cumm 0.00-0.21 Partial Thromboplastin [id number] 14:38:00* Test Item Value Reference Range Comments aPTT (test code=PTT) 36.70 seconds 24.39-37.25 Prothrombin [id number] 14:38:00* Test Item Value Reference Range Comments PT (test code=PT) 10.20 seconds 9.78-13.35 INR (test code=INR) 0.89 Ratio 0.6-1.2 Comprehensive Metabolic [id number] 14:33:00* Test Item Value Reference Range Comments Sodium (test code=NA) 137 mmol/L 135-145 Potassium (test code=K) 4.7 mmol/L 3.5-5.1 Chloride (test code=CL) 99 mmol/L 98-105 Carbon Dioxide (test code=CO2) 27 mmol/L 22-29 Glucose (test code=GLU) 97 mg/dL 70-115 Blood Urea Nitrogen (test code=BUN) 20 mg/dL 8-23 Creatinine (test code=CREAT) 1.0 mg/dL 0.7-1.2 Calcium (test code=CA) 10.1 mg/dL 8.3-10.5 Prot Total (test code=TP) 7.7 g/dL 6.4-8.3 Albumin (test code=ALB) 4.6 g/dL 3.5-5.2 A/G Ratio (test code=AGRATIO) 1.5 Ratio Globulin (test code=GLOB) 3.1 2.9-3.1 Bili Total (test code=TBIL) 0.4 mg/dL 0.1-0.9 Alk Phos (test code=APHOS) 54 U/L 40-129 AST (test code=AST) 21 U/L 1-40 ALT (test code=ALT) 15 U/L 1-41 BUN/Creatinine Ratio (test code=BCRATIO) 20.0 Anion Gap (test code=AGAP) 11 mmol/L 7-16 Estimated GFR (test code=GFR) >60 mL/min/1.73m2 eGFR (estimated Glomerular Filtration Rate) is an estimated value,calculated from the patient's serum creatinine using the MDRD equation.It is NOT the patient's actual GFR. The eGFR provides a more clinicallyuseful measure of kidney disease than serum creatinine alone.This calculation takes sex and race into account, if the informationis provided. If the race is not provided, and the patient isAfrican- [place], multiply by 1.212. If sex is not provided, and thepatient is female, multiply by 0.742. Results for patients <18 years ofage have not been validated by the MDRD study and should be interpretedwith caution.eGFR Result Interpretation:eGFR > or=60 is in the Normal RangeeGFR < 60 may mean kidney diseaseeGFR < 15 may mean kidney failureRanges recommended by the National Kidney Foundation,http://nkdep.nih.gov Lipid [id number] 14:33:00* Test Item Value Reference Range Comments Cholesterol (test code=CHOL) 142 mg/dL 0-200 Triglycerides (test code=TRIG) 46 mg/dL 9-200 HDL (test code=HDL) 76 mg/dL 40-60 Chol/HDL (test code=CHOLPHDL) 1.9 Ratio 0.0-5.0 LDL, Calculated (test code=LDLC) 57 mg/dL 0-130 (NOTE)RISK OF HEART DISEASEPublished by [place] Heart AssociationAnalyte Optimal Boderline Increased RiskCHOL <200 200-239 >240TRIG <150 150-199 >200HDL Male: >60 <40HDL Female: >60 <50LDL <100 130- 159 >160LDL NEAR OPTIMAL IS 100-129 VLDL (test code=VLDL) 9 mg/dL 5-40 LDL/HDL (test code=LDLPHDL) 1
== END 2017-03-13 18:30 | disposition left against medical advice (07) ==
LOC: ER 15:22
DX: R33.9 Retention of urine, unspecified (principal)

== ENCOUNTER 2017-03-22 09:28 | Emergency (ER) | payer MEDICARE ==
[~2017-03-22] VITALS: Ht 165.1 cm; Wt 74.8 kg
--- OUTSIDE RECORDS SUMMARY | 2017-03-22 09:32 | XMS REPORT | Continuity of Care Document ---
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 No 06/19/12 3:22am If yes, is advance directive on file with [facility]? No 06/19/12 3:22am If not on file with [facility] will patient provide a copy? Yes 06/19/12 3:22am Do you have a Directive to Physician? No 03/13/17 6:16pm Do you have a Medical Power of Clock Mechanic? No 03/13/17 6:16pm Do you have an out of hospital Do Not Resuscitate Order? No 03/13/17 6:16pm Do you have any special needs we should be aware of? No 03/13/17 6:16pm Do you have a support person here with you today? Yes 03/13/17 6:16pm Did patient receive Notice of Privacy Practices? Yes 03/13/17 6:16pm Did patient receive patient rights and responsibilities? Yes 03/13/17 6:16pm Problems Medical Problem Onset Date Status Anterior shoulder dislocation Unknown Acute Leg dysfunction Unknown Acute Medications Current Home Medications Medication Dose Units Route Directions Days Qty Instructions Start Date Lactulose 20 Gm/30 Ml Solution 30 Ml Oral Tramadol Hcl (Ultram) 50 Mg Tablet 50 Mg Oral Every 8 Hours as needed for Severe Pain (7-10) Past Home Medications Medication Directions Ordered Status Hydrocodone Bit/Acetaminophen* (Vicodin 5-500 Tablet*) 1 Each Tablet, 1 Tab Oral Every 4 Hours as needed Discontinued Sulfamethoxazole/Trimethoprim (Bactrim Ds Tablet) 1 Each Tablet, 1 Tab Oral Twice A Day Discontinued Social History Social History Problem Response Recorded Date/Time Onset Date Status Hx Psychiatric Problems No 06/19/2012 3:22am Not Applicable Not Applicable Hx Eating Disorder No 06/19/2012 3:22am Not Applicable Not Applicable Hx Substance Use Disorder No 06/19/2012 3:22am Not Applicable Not Applicable Hx Depression No 06/19/2012 3:22am Not Applicable Not Applicable Hx Alcohol Use No 06/19/2012 3:22am Not Applicable Not Applicable Hx Substance Use Treatment No 06/19/2012 3:22am Not Applicable Not Applicable Hx Physical Abuse No 06/19/2012 3:22am Not Applicable Not Applicable Hospital Discharge Instructions No hospital discharge instruction information available. Plan of Care Discharge Date 03/13/17 6:30pm Disposition ELOPED Condition at Discharge Stable Forms Provided Work/School Excuse Prescriptions See Medication Section Functional Status No functional status information available. Allergies, Adverse Reactions, Alerts Allergen Type Severity Reaction Status Last Updated Testosterone Allergy Unknown Active 03/13/17 Immunizations No immunization information available. Vital Signs Acute Vital Signs Vital Response Date/Time Respiratory Rate 19 bpm (12 - 24) 02/11/2017 3:24pm Blood Pressure 152/67 mm Hg 02/11/2017 3:24pm Height 5 ft 5 in 03/13/2017 3:58pm Weight 165 lb 03/13/2017 3:58pm Body Mass Index 27.5 kg/m^2 03/13/2017 3:58pm Results Laboratory Results Test Name Result Units Flags Reference Collection Date/Time Result Date/ Time Comments White Blood Count 12.03 x10e3/uL H 4.8-10.8 02/11/2017 12:10pm 2017 12:27pm Red Blood Count 4.01 x10e6/uL L 4.3-5.7 02/11/2017 12:10pm 02/11/2017 12 :27pm Hemoglobin 11.8 g/dL L 14.0-18.0 02/11/2017 12:10pm 02/11/2017 12:27pm Hematocrit 36.0 % L 38.2-49.6 02/11/2017 12:10pm 02/11/2017 12:27pm Mean Corpuscular Volume 89.8 fL 81-99 02/11/2017 12:10pm 02/11/2017 12: 27pm Mean Corpuscular Hemoglobin 29.4 pg 28-32 02/11/2017 12:10pm 2017 12:27pm Mean Corpuscular Hemoglobin Concent 32.8 g/dL 31-35 02/11/2017 12:10pm 02/11/2017 12:27pm Red Cell Distribution Width 17.0 % H 11.7-14.4 02/11/2017 12:10pm 2017 12:27pm Platelet Count 209 x10e3/uL 140-360 02/11/2017 12:10pm 02/11/2017 12: 27pm Neutrophils (%) (Auto) 83.0 % H 38.7-80.0 02/11/2017 12:10pm 02/11/2017 12:27pm Lymphocytes (%) (Auto) 10.2 % L 18.0-39.1 02/11/2017 12:10pm 02/11/2017 12:27pm Monocytes (%) (Auto) 4.8 % 4.4-11.3 02/11/2017 12:10pm 02/11/2017 12: 27pm Eosinophils (%) (Auto) 1.2 % 0.0-6.0 02/11/2017 12:10pm 02/11/2017 12: 27pm Basophils (%) (Auto) 0.6 % 0.0-1.0 02/11/2017 12:10pm 02/11/2017 12: 27pm IM GRANULOCYTES % 0.2 % 0.0-1.0 02/11/2017 12:10pm 02/11/2017 12:27pm Neutrophils # (Auto) 10.0 H 2.1-6.9 02/11/2017 12:10pm 02/11/2017 12: 27pm Lymphocytes # (Auto) 1.2 1.0-3.2 02/11/2017 12:10pm 02/11/2017 12: 27pm Monocytes # (Auto) 0.6 0.2-0.8 02/11/2017 12:10pm 02/11/2017 12:27pm Eosinophils # (Auto) 0.2 0.0-0.4 02/11/2017 12:10pm 02/11/2017 12: 27pm Basophils # (Auto) 0.1 0.0-0.1 02/11/2017 12:10pm 02/11/2017 12:27pm Absolute Immature Granulocyte (auto 0.03 x10e3/uL 0-0.1 02/11/2017 12: 10pm 02/11/2017 12:27pm Urine Color YELLOW YELLOW 02/11/2017 12:10pm 02/11/2017 2:39pm Urine Clarity SL CLOUDY H CLEAR 02/11/2017 12:10pm 02/11/2017 2:39pm Urine Specific [place] 1.020 1.010-1.025 02/11/2017 12:10pm 2017 2:39pm Urine pH 5 5 - 7 02/11/2017 12:10pm 02/11/2017 2:39pm Urine Leukocyte Esterase TRACE H NEGATIVE 02/11/2017 12:10pm 2017 2:39pm Urine Nitrite NEGATIVE NEGATIVE 02/11/2017 12:10pm 02/11/2017 2:39pm Urine Protein NEGATIVE NEGATIVE 02/11/2017 12:10pm 02/11/2017 2:39pm Urine Glucose (UA) NEGATIVE NEGATIVE 02/11/2017 12:10pm 02/11/2017 2: 39pm Urine Ketones NEGATIVE NEGATIVE 02/11/2017 12:10pm 02/11/2017 2:39pm Urine Urobilinogen 0.2 mg/dL 0.2 - 1 02/11/2017 12:10pm 02/11/2017 2: 39pm Urine Bilirubin NEGATIVE NEGATIVE 02/11/2017 12:10pm 02/11/2017 2: 39pm Urine Blood 2+ H NEGATIVE 02/11/2017 12:10pm 02/11/2017 2:39pm Urine WBC 0-5 /HPF 0-5 02/11/2017 12:10pm 02/11/2017 2:55pm Urine RBC 6-10 /HPF H 0-5 02/11/2017 12:10pm 02/11/2017 2:55pm Urine Bacteria NONE /HPF NONE 02/11/2017 12:10pm 02/11/2017 2:55pm Urine Epithelial Cells NONE /LPF NONE 02/11/2017 12:10pm 02/11/2017 2: 55pm Sodium Level 135 mmol/L L 136-145 02/11/2017 12:10pm 02/11/2017 12:35pm Potassium Level 5.4 mmol/L H 3.5-5.1 02/11/2017 12:10pm 02/11/2017 12: 35pm Chloride Level 102 mmol/L 98-107 02/11/2017 12:10pm 02/11/2017 12:35pm Carbon Dioxide Level 26 mmol/L 22-29 02/11/2017 12:10pm 02/11/2017 12: 35pm Anion Gap 12.4 mmol/L 8-16 02/11/2017 12:10pm 02/11/2017 12:35pm Blood Urea Nitrogen 25 mg/dL 7-26 02/11/2017 12:10pm 02/11/2017 12: 35pm Creatinine 1.10 mg/dL 0.72-1.25 02/11/2017 12:10pm 02/11/2017 12:35pm BUN/Creatinine Ratio 23 6-25 02/11/2017 12:10pm 02/11/2017 12:35pm Estimat Glomerular Filtration Rate > 60 ML/MIN 60- 02/11/2017 12:10pm 02/11/2017 12:35pm Ranges were taken from the National Kid[employer] Education Program and the [employer] literature. Reference ranges: 60 or greater: Normal 16-59 (for 3 consecutive months): Chronic kidney disease 15 or less: Kidney failure Glucose Level 135 mg/dL H 74-118 02/11/2017 12:10pm 02/11/2017 12:35pm Calcium Level 9.6 mg/dL 8.4-10.2 02/11/2017 12:10pm 02/11/2017 12:35pm Creatine Kinase 172 IU/L 30-200 02/11/2017 12:10pm 02/11/2017 12:35pm Creatine Kinase MB 2.50 ng/mL 0.00-5.00 02/11/2017 12:10pm 02/11/2017 12:40pm Troponin I 0.015 ng/mL 0-0.300 02/11/2017 12:10pm 02/11/2017 12:40pm Procedures No procedure information available. Encounters Encounter Location Arrival/Admit Date Discharge/Depart Date Attending Provider Departed Emergency Room [facility] 03/13/17 3:22pm 6:30pm RADU TAYLOR MD Departed Emergency Room [facility] 02/11/17 10:36am 02/11 3:39pm MEGHANN ROJAS MD
[2017-03-22 10:46] LABS: BASOPHILS % 0.4 % (0.0-1.0); EOSINOPHILS # (AUTO) 0.1 (0.0-0.4); EOSINOPHILS % 0.8 % (0.0-6.0); HEMATOCRIT 36.4 % (38.2-49.6); HEMOGLOBIN 11.8 g/dL (14.0-18.0); LYMPHOCYTES # (AUTO) 1.4 (1.0-3.2); LYMPHOCYTES % 14.6 % (18.0-39.1); MEAN CORPUSCULAR HEMOGLOBIN 29.7 pg (28-32); MEAN CORPUSCULAR HGB CONC 32.4 g/dL (31-35); MEAN CORPUSCULAR VOLUME 91.7 fL (81-99); MONOCYTES % 9.7 % (4.4-11.3); NEUTROPHILS # (AUTO) 7.2 (2.1-6.9); NEUTROPHILS % 74.1 % (38.7-80.0); PLATELET COUNT 152 x10e3/uL (140-360); RED BLOOD COUNT 3.97 x10e6/uL (4.3-5.7); RED CELL DISTRIBUTION WIDTH 15.3 % (11.7-14.4)
[2017-03-22 10:57] LABS: ALANINE AMINOTRANSFERASE 14 IU/L (0-55); ALBUMIN/GLOBULIN RATIO 1.1 (0.8-2.0); ALKALINE PHOSPHATASE 59 IU/L (40-150); ANION GAP 14.4 mmol/L (8-16); BLOOD UREA NITROGEN 28 mg/dL (7-26); BUN/CREATININE RATIO 25 (6-25); CARBON DIOXIDE 25 mmol/L (22-29); CHLORIDE 103 mmol/L (98-107); CREATINE KINASE 64 IU/L (30-200); CREATININE, SERUM 1.11 mg/dL (0.72-1.25); EST GLOMERULAR FILTRATION RATE > 60 ML/MIN (60-); GLUCOSE 98 mg/dL (74-118); LIPASE 17 U/L (8-78); POTASSIUM 4.4 mmol/L (3.5-5.1); SODIUM 138 mmol/L (136-145)
--- NOTE | 2017-03-22 11:16 | Diagnostic Imaging Report ---
PROCEDURE: CHEST SINGLE (PORTABLE) COMPARISON: 04/07/2010. INDICATIONS: STOMACH PAIN, CONSTIPATION FINDINGS: The lungs remain well-inflated. No focal airspace consolidation, pleural effusion, or pneumothorax. Stable cardiomediastinal contour with tortuosity and atherosclerotic calcification of the thoracic aorta. No pulmonary edema. No acute osseous abnormalities. Degenerative changes of the shoulder girdles and thoracic spine. CONCLUSION: No acute cardiopulmonary abnormality. Dictated by: Yang Breaux M.D. on 03/22/2017 at 11:26 Electronically approved by: Yang Breaux M.D. on 03/22/2017 at 11:26
[2017-03-22 11:54] LABS: ANISOCYTOSIS SLIGHT; HYPOCHROMASIA SLIGHT; PLATELET ESTIMATE ADEQUATE; RBC MORPHOLOGY COMMENT NORMAL
[2017-03-22] MEDS ORDERED: IOPAMIDOL 370 MG/ML 200 ML INFUS..BTL INJ ONE (11:58)
[2017-03-22] MEDS ORDERED: SODIUM CHLORIDE 0.9% 50ML 50 ML ONE (11:58)
[2017-03-22 12:11] LABS: PLATELET MORPHOLOGY COMMENT NORMAL
--- NOTE | 2017-03-22 12:28 | Diagnostic Imaging Report ---
PROCEDURE: CT ABDOMEN AND PELVIS WITH CONTRAST TECHNIQUE: The abdomen and pelvis were scanned utilizing a multidetector helical scanner from the diaphragm to the lesser trochanter after the IV administration of 100 cc of Isovue 370 and the oral administration of water. Coronal and sagittal multiplanar reformations were obtained. COMPARISON: Patients [facility], CT, CT ABDOMEN/PELVIS W, 05/07/2015, 12:18. INDICATIONS: left side pain few days FINDINGS: LOWER THORAX: Bilateral diaphragmatic pleural calcifications (series 2, image 12. Patulous fluid-filled esophagus. HEPATOBILIARY: No focal hepatic lesions. No biliary ductal dilatation. Gallbladder is unremarkable. SPLEEN: No splenomegaly. PANCREAS: No focal masses or ductal dilatation. Moderate pancreatic atrophy ADRENALS: Stable diffuse thickening of the anterior and medial limbs of the left adrenal gland (series 2 image 29), without discrete lesion. Right adrenal gland is grossly unremarkable. KIDNEYS/URETERS: Stable partially exophytic 1.6 cm simple cyst in the superior pole of the right kidney (coronal image 65). Symmetrical enhancement. No stones, hydronephrosis, or obstruction. No solid enhancing mass. PELVIC ORGANS/BLADDER: Bladder is decompressed and there is a Leija catheter in place. RETROPERITONEUM: No free air or free fluid. LYMPH NODES: No lymphadenopathy. VESSELS: Celiac trunk, superior and inferior mesenteric, and bilateral renal arteries are patent. Portal, superior mesenteric, and splenic veins are patent. Left retroaortic renal vein. Moderate atherosclerotic calcification of the abdominal aorta and vessels. GI TRACT: No small bowel dilation. Multiple nonspecific fluid-filled loops of ileum are noted. No focal lesions. There is mild dilation of the rectum with air and stool, measuring 7.8 cm in transverse diameter. Rest of the large bowel is normal in caliber. Moderate amount of retained stool. Multiple diverticula are noted throughout the entire colon, worse in the distal transverse, descending, and sigmoid colon, without diverticulitis. Moderate distention of the stomach. BONES AND SOFT TISSUES: No aggressive lytic lesion. Multilevel degenerative disc changes with grade 1 anterolisthesis of L5 on S1. Likely vertebroplasty changes at previously visualized compression deformity L4. IMPRESSION: 1. mild dilation of the rectum with air and stool. The rest of the large bowel as well as the small bowel are normal in caliber. Moderate amount of retained stool. No evidence of obstruction. 2. Colonic diverticulosis, without diverticulitis. 3. Stable diffuse thickening of the anterior medial limbs of the left adrenal gland, without discrete focal lesion. This may be secondary to hyperplasia versus presence of tiny adenomas. Mark Burns M.D. Dictated by: Mark Burns M.D. on 03/22/2017 at 12:37 Electronically approved by: Mark Burns M.D. on 03/22/2017 at 12:37
[2017-03-22 13:08] LABS: BILIRUBIN,URINE NEGATIVE (NEGATIVE); KETONES,URINE NEGATIVE (NEGATIVE); LEUKOCYTE ESTERASE ,URINE NEGATIVE (NEGATIVE); NITRITE,URINE NEGATIVE (NEGATIVE); PROTEIN,URINE DIPSTICK NEGATIVE (NEGATIVE); URINE UROBILINOGEN 0.2 mg/dL (0.2 - 1)
[2017-03-22 13:38] LABS: CLARITY,URINE CLEAR (CLEAR); COLOR,URINE YELLOW (YELLOW)
[2017-03-22 13:40] LABS: BACTERIA,URINE FEW /HPF; EPITHELIAL CELLS,URINE FEW /LPF; RBC,URINE 0-5 /HPF (0-5); WBC,URINE (MAN) 0-5 /HPF (0-5)
[2017-03-22 13:58] VITALS: BP 151/64
== END 2017-03-22 14:59 | disposition home or self-care (01) ==
LOC: ER 09:28
DX: R10.30 Lower abdominal pain, unspecified (principal); K59.00 Constipation, unspecified; I10 Essential (primary) hypertension
CPT/HCPCS: 36415; 71045; 74177; 80053; 81001; 82550; 82553; 83690; 83735; 84484; 85025; 87086; 87186; 93005; 99284; Q9967

== ENCOUNTER 2018-04-07 11:36 | Emergency (ER) | payer MEDICARE ==
[~2018-04-07] VITALS: Ht 157.5 cm; Wt 63.0 kg
--- OUTSIDE RECORDS SUMMARY | 2018-04-07 11:41 | XMS REPORT ---
Author Author Yumiko Meadows Organization [employer] Address Unknown Phone Unavailable Care Team Providers Care Immigration Case Worker Name Role Phone Yumiko Meadows CP Unavailable Allergies, Adverse Reactions, Alerts Substance Reaction Event Type N.K.D.A. Info Not Available Non Drug Allergy Encounters Encounter Location Date confirmed [facility] August 19, 2013 Unknown [facility] August 20, 2013 confirmed-hit wrong option [facility] July 14, 2013 Unknown [facility] July 24, 2013 Status on MRI results [facility] August 05, 2013 Problems Problem Type Condition ICD-9 Code Onset Dates Condition Status Assessment Screening for tobacco use V70.3 Active Assessment Abnormality of gait 781.2 Active Assessment Screening for obesity V77.8 Active Problem 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 Problem Cervical spondylosis with myelopathy 721.1 Active Problem Screening for hypertension V81.1 Active Assessment Cervical spondylosis with myelopathy 721.1 Active Assessment Screening for hypertension V81.1 Active Problem Screening for tobacco use V70.3 Active Problem Screening for obesity V77.8 Active Medications Medication Code System Code Instructions Start Date End Date Status Dosage Amlodipine Besylate MEDISPAN [address]-31 5 MG Orally Once a day Active 1 tablet Hydrocodone-Acetaminophen MEDISPAN [address]-95 10-325 MG Orally every 6 hrs Active 1 tablet as needed Social History Social History Element Qualifiers Date Reported Education history . High School Graduate yes August 19, 2013 Alcohol Screening: . Did you have a drink containing alcohol in the past year?: No, Points: 0, Interpretation: Negative August 19, 2013 Tobacco Use: . Are you a:: never smoker , Additional Findings: Tobacco Non-User: Aggressive non-smoker,Does not use moist powdered tobacco,Never chewed tobacco,Never used moist powdered tobacco,Non-smoker for personal reasons,Tolerant non-smoker August 19, 2013 Marital Status: . August 19, 2013 Do you drink alcohol? . Status: No August 19, 2013 Occupation: . Retired August 19, 2013 Vital Signs Date/Time: August 19, 2013 Weight 145 lbs Summary Purpose [employer] Submission
--- OUTSIDE RECORDS SUMMARY | 2018-04-07 11:41 | XMS REPORT ---
Author Author Yumiko Meadows Organization [employer] Address Unknown Phone Unavailable Care Team Providers Care Candy Supervisor Name Role Phone Yumiko Meadows CP Unavailable Allergies, Adverse Reactions, Alerts Substance Reaction Event Type N.K.D.A. 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 Problem Cervical spondylosis with myelopathy 721.1 Active Problem Screening for hypertension V81.1 Active Assessment Cervical spondylosis with myelopathy 721.1 Active Assessment 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 High School Graduate yes July 24, 2013 Alcohol Screening: . Did you have a drink containing alcohol in the past year?: No, Points: 0, Interpretation: Negative July 24, 2013 Tobacco Use: . Are you a:: never smoker , Additional Findings: Tobacco Non-User: Aggressive non-smoker,Does not use moist powdered tobacco,Never chewed tobacco,Never used moist powdered tobacco,Non-smoker for personal reasons,Tolerant non-smoker July 24, 2013 Marital Status: . July 24, 2013 Do you drink alcohol? . Status: No July 24, 2013 Occupation: . Retired July 24, 2013 Vital Signs Date/Time: July 24, 2013 Weight 145 lbs Summary Purpose [employer] Submission
--- OUTSIDE RECORDS SUMMARY | 2018-04-07 11:41 | XMS REPORT ---
Author Author Kaci Rodriguez Organization [employer] Address Unknown Phone Unavailable Care Team Providers Care Roller Shop Utility Worker Name Role Phone Kaci Rodriguez CP Unavailable Encounters Encounter Location Date confirmed [facility] August 19, 2013 Unknown [facility] August 20, 2013 switch provider [facility] Mar 02, 2015 11/15/15-auth pending for EMG w/ RPO *mg;11/15/15- contacted PCP for referral submission to initiate auth *mg;11/15/15- referral on file *mg;Confirmed via , ins/demos are up to date -edegollado [facility] Nov 22, 2015 confirmed-hit wrong option [facility] July 14, 2013 Unknown [facility] July 24, 2013 Status on MRI results [facility] August 05, 2013 Problems Problem Type Condition ICD-9 Code Onset Dates Condition Status Assessment 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 High School Graduate yes Mar 08, 2015 Alcohol Screening: . Did you have a drink containing alcohol in the past year?: No, Points: 0, Interpretation: Negative Mar 08, 2015 Tobacco Use: . Are you a:: never smoker , Additional Findings: Tobacco Non-User: Aggressive non-smoker,Does not use moist powdered tobacco,Never chewed tobacco,Never used moist powdered tobacco,Non-smoker for personal reasons,Tolerant non-smoker Mar 08, 2015 Marital Status: . Mar 08, 2015 Do you drink alcohol? . Status: No Mar 08, 2015 Occupation: . Retired Mar 08, 2015 Summary Purpose [employer] Submission
--- OUTSIDE RECORDS SUMMARY | 2018-04-07 11:41 | XMS REPORT ---
Author Tate Landrum [employer] Address Unknown Phone Unavailable Care Team Providers Care Physician Industrial Name Role Phone Tate Irvin CP Unavailable Encounters Encounter Location Date confirmed [facility] August 19, 2013 Unknown [facility] August 20, 2013 switch provider [facility] Mar 02, 2015 confirmed-hit wrong option [facility] July 14, 2013 Unknown [facility] July 24, 2013 Status on MRI results [facility] August 05, 2013 Problems Problem Type Condition ICD-9 Code Onset Dates Condition Status Problem 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 High School Graduate yes Mar 09, 2015 Alcohol Screening: . Did you have a drink containing alcohol in the past year?: No, Points: 0, Interpretation: Negative Mar 09, 2015 Tobacco Use: . Are you a:: never smoker , Additional Findings: Tobacco Non-User: Aggressive non-smoker,Does not use moist powdered tobacco,Never chewed tobacco,Never used moist powdered tobacco,Non-smoker for personal reasons,Tolerant non-smoker Mar 09, 2015 Marital Status: . Mar 09, 2015 Do you drink alcohol? . Status: No Mar 09, 2015 Occupation: . Retired Mar 09, 2015 Family history Qualifier Description Comment Date Reported Maternal Grandmother Comment not available Mar 08, 2015 Paternal Grandmother Comment not available Mar 08, 2015 Siblings Comment not available Mar 08, 2015 Maternal Grandfather Comment not available Mar 08, 2015 Children Comment not available Mar 08, 2015 Father Comment not available Mar 08, 2015 Paternal Grandfather Comment not available Mar 08, 2015 Mother Comment not available Mar 08, 2015 Other: Comment not available Mar 08, 2015 Summary Purpose [employer] Submission
--- OUTSIDE RECORDS SUMMARY | 2018-04-07 11:41 | XMS REPORT ---
Author Tate Landrum [employer] Address Unknown Phone Unavailable Care Team Providers Care Angiographer Name Role Phone Tate Irvin CP Unavailable Encounters Encounter Location Date confirmed [facility] August 19, [address] [facility] August 20, 2013 confirmed-hit wrong option [facility] July 14, [address] [facility] July 24, 2013 Status on MRI results [facility] August 05, 2013 Problems Problem Type [...] 2013 Occupation: . Retired August 19, 2013 Summary Purpose [employer] Submission
--- OUTSIDE RECORDS SUMMARY | 2018-04-07 11:41 | XMS REPORT ---
Author Tate Landrum [employer] Address Unknown Phone Unavailable Care Team Providers Care Speed Belt Sander Tender Name Role Phone Tate Irvin Unavailable Encounters Encounter Location Date confirmed-hit wrong option [facility] July 14, 2013 Unknown [facility] July 24, 2013 Status on MRI results [facility] August 05, 2013 Problems Problem Type [...] 2013 Occupation: . Retired July 24, 2013 Summary Purpose [employer] Submission
--- OUTSIDE RECORDS SUMMARY | 2018-04-07 11:41 | XMS REPORT | Continuity of Care Document ---
Author Author [facility] Interface Address Unknown Phone Unavailable Problems Problem Status Onset Date Classification Date Reported Comments Source Displacement of lumbar intervertebral disc without myelopathy Active Problem 01/03/2016 [facility] Cervical spondylosis with myelopathy Active Problem 01/03/2016 [facility] Screening for hypertension Active Problem 01/03/2016 [facility] Screening for tobacco use Active Problem 01/03/2016 [facility] Screening for obesity Active Problem 01/03/2016 [facility] 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 [facility] 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 [facility] Abnormality of gait Active Diagnosis 08/26/2013 [facility] Anterior shoulder dislocation Active Problem 03/22/2017 [facility] Leg dysfunction Active Problem 03/22/2017 [facility] Medications Medication Details Route Status Patient Instructions Ordering Provider Order Date Source Hydrocodone Bit/Acetaminophen* (Vicodin 5-500 Tablet*) 1 Each Tablet, 1 Tab Oral Every 4 Hours as needed Active 04/13/2015 [facility] Sulfamethoxazole/Trimethoprim (Bactrim Ds Tablet) 1 Each Tablet, 1 Tab Oral Twice A Day Active 04/13/2015 [facility] Tylenol Extra Strength NEEDED NA Active 500 MG 0 Fayle 07/18/2005 [facility] Mobic PRN NA Active 7.5 MG 0 Fayle 07/04/2005 [facility] Hydrocodone-Acetaminophen 1 tablet as needed Orally Active 10- 325 MG Orally every 6 hrs [facility] Amlodipine Besylate 1 tablet Orally Active 5 MG Orally Once a day [facility] Lactulose 20 Gm/30 Ml Solution Active [facility] Tramadol Hcl (Ultram) 50 Mg Tablet Every 8 Hours as needed for Severe Pain (7-10) Active [facility] Allergies, Adverse Reactions, Alerts Substance Category Reaction Severity Reaction type Status Date Reported Comments Source N.K.D.A. Adverse Reaction Info Not Available Adverse Reaction Active 08/19/2013 [facility] Testosterone Unknown Allergy to Substance Active 03/13/2017 [facility] Immunizations Immunization Date Given Site Status Last Updated Comments Source Results Order Name Results Value Reference Range Date Interpretation Comments Source Automated urine sediment leukocyte count by microscopy (number/high power field) Automated urine sediment leukocyte count by microscopy (number/high power field) null 0 - 5 03/22/2017 [facility] Bacteria detection in urine sediment by light microscopy Bacteria detection in urine sediment by light microscopy FEW NONE 03/22/2017 [facility] Epithelial cells detection in urine sediment by light microscopy Epithelial cells detection in urine sediment by light microscopy FEW NONE 03/22/2017 [facility] Erythrocytes detection in urine sediment by light microscopy Erythrocytes detection in urine sediment by light microscopy null 0 - 5 03/22/2017 [facility] Specific gravity of Urine by Test strip Specific gravity of Urine by Test strip 1.005 1.010 - 1.025 03/22/2017 [facility] Urine clarity Urine clarity CLEAR CLEAR 03/22/2017 [facility] Urine color determination Urine color determination YELLOW YELLOW 03/22/2017 [facility] Urine erythrocytes detection Urine erythrocytes detection NEGATIVE NEGATIVE 03/22/2017 [facility] Urine glucose detection Urine glucose detection NEGATIVE NEGATIVE 03/22/2017 [facility] Urine ketones detection by automated test strip Urine ketones detection by automated test strip NEGATIVE NEGATIVE 03/22/2017 [facility] Urine leukocyte esterase detection by dipstick Urine leukocyte esterase detection by dipstick NEGATIVE NEGATIVE 03/22/2017 [facility] Urine nitrite detection Urine nitrite detection NEGATIVE NEGATIVE 03/22/2017 [facility] Urine pH measurement by automated test strip Urine pH measurement by automated test strip 5 5 - 7 03/22/2017 [facility] Urine protein measurement by test strip (mass/volume) Urine protein measurement by test strip (mass/volume) NEGATIVE NEGATIVE 03/22/2017 [facility] Urine total bilirubin measurement (mass/volume) Urine total bilirubin measurement (mass/volume) NEGATIVE NEGATIVE 03/22/2017 [facility] Urine urobilinogen measurement by test strip (mass/volume) Urine urobilinogen measurement by test strip (mass/volume) 0.2 0.2 - 1 03/22/2017 [facility] Automated blood basophil count (count/volume) Automated blood basophil count (count/volume) 0.0 0.0 - 0.1 03/22/2017 [facility] Automated blood basophil count as percentage of total leukocytes Automated blood basophil count as percentage of total leukocytes 0.4 0.0 - 1.0 03/22/2017 [facility] Automated blood eosinophil count Automated blood eosinophil count 0.1 0.0 - 0.4 03/22/2017 [facility] Automated blood eosinophil count as percentage of total leukocytes Automated blood eosinophil count as percentage of total leukocytes 0.8 0.0 - 6.0 03/22/2017 [facility] Automated blood hematocrit (volume fraction) Automated blood hematocrit (volume fraction) 36.4 38.2 - 49.6 03/22/2017 [facility] Automated blood lymphocyte count as percentage ot total leukocytes Automated blood lymphocyte count as percentage ot total leukocytes 14.6 18.0 - 39.1 03/22/2017 [facility] Automated blood monocyte count as percentage of total leukocytes Automated blood monocyte count as percentage of total leukocytes 9.7 4.4 - 11.3 03/22/2017 [facility] Automated blood neutrophil count Automated blood neutrophil count 7.2 2.1 - 6.9 03/22/2017 [facility] Automated blood platelet count (count/volume) Automated blood platelet count (count/volume) 152 140 - 360 03/22/2017 [facility] Automated blood segmented neutrophil count as percentage of total leukocytes Automated blood segmented neutrophil count as percentage of total leukocytes 74.1 38.7 - 80.0 03/22/2017 [facility] Automated erythrocyte mean corpuscular hemoglobin (mass per erythrocyte) Automated erythrocyte mean corpuscular hemoglobin (mass per erythrocyte) 29.7 28 - 32 03/22/2017 [facility] Automated erythrocyte mean corpuscular hemoglobin concentration measurement (mass/volume) Automated erythrocyte mean corpuscular hemoglobin concentration measurement (mass/volume) 32.4 31 - 35 03/22/2017 [facility] Automated erythrocyte mean corpuscular volume Automated erythrocyte mean corpuscular volume 91.7 81 - 99 03/22/2017 [facility] Blood anisocytosis detection by light microscopy Blood anisocytosis detection by light microscopy SLIGHT 03/22/2017 [facility] Blood erythrocytes automated count (number/volume) Blood erythrocytes automated count (number/volume) 3.97 4.3 - 5.7 03/22/2017 [facility] Blood hemoglobin measurement (moles/volume) Blood hemoglobin measurement (moles/volume) 11.8 14.0 - 18.0 03/22/2017 [facility] Blood hypochromia detection by light microscopy Blood hypochromia detection by light microscopy SLIGHT 03/22/2017 [facility] Blood leukocytes automated count (number/volume) Blood leukocytes automated count (number/volume) 9.75 4.8 - 10.8 03/22/2017 [facility] Blood lymphocytes count (number/volume) Blood lymphocytes count (number/volume) 1.4 1.0 - 3.2 03/22/2017 [facility] Blood monocytes automated count (number/volume) Blood monocytes automated count (number/volume) 1.0 0.2 - 0.8 03/22/2017 [facility] Blood platelets count by estimate (number/volume) Blood platelets count by estimate (number/volume) ADEQUATE 03/22/2017 [facility] Estimated glomerular filtration rate (GFR) determination Estimated glomerular filtration rate (GFR) determination null 60 03/22/2017 [facility] Glucose measurement Glucose measurement 98 74 - 118 03/22/2017 [facility] Plasma globulin measurement (mass/volume) Plasma globulin measurement (mass/volume) 3.7 2.3 - 3.5 03/22/2017 [facility] Platelet morphology Platelet morphology NORMAL 03/22/2017 [facility] RBC morphology RBC morphology NORMAL 03/22/2017 [facility] Serum or plasma alanine aminotransferase measurement (enzymatic activity/volume) Serum or plasma alanine aminotransferase measurement (enzymatic activity/volume) 14 0 - 55 03/22/2017 [facility] Serum or plasma albumin measurement (mass/volume) Serum or plasma albumin measurement (mass/volume) 4.0 3.5 - 5.0 03/22/2017 [facility] Serum or plasma albumin/globulin mass ratio Serum or plasma albumin/globulin mass ratio 1.1 0.8 - 2.0 03/22/2017 [facility] Serum or plasma alkaline phosphatase measurement (enzymatic activity/volume) Serum or plasma alkaline phosphatase measurement (enzymatic activity/volume) 59 40 - 150 03/22/2017 [facility] Serum or plasma anion gap Serum or plasma anion gap 14.4 8 - 16 03/22/2017 [facility] Serum or plasma calcium measurement (mass/volume) Serum or plasma calcium measurement (mass/volume) 9.0 8.4 - 10.2 03/22/2017 [facility] Serum or plasma carbon dioxide, total measurement (moles/volume) Serum or plasma carbon dioxide, total measurement (moles/volume) 25 22 - 29 03/22/2017 [facility] Serum or plasma chloride measurement (moles/volume) Serum or plasma chloride measurement (moles/volume) 103 98 - 107 03/22/2017 [facility] Serum or plasma creatine kinase MB measurement (mass/volume) Serum or plasma creatine kinase MB measurement (mass/volume) 2.00 0.00 - 5.00 03/22/2017 [facility] Serum or plasma creatine kinase measurement (enzymatic activity/volume) Serum or plasma creatine kinase measurement (enzymatic activity/volume) 64 30 - 200 03/22/2017 [facility] Serum or plasma creatinine measurement (mass/volume) Serum or plasma creatinine measurement (mass/volume) 1.11 0.72 - 1.25 03/22/2017 [facility] Serum or plasma lipase measurement (enzymatic activity/volume) Serum or plasma lipase measurement (enzymatic activity/volume) 17 8 - 78 03/22/2017 [facility] Serum or plasma magnesium measurement (mass/volume) Serum or plasma magnesium measurement (mass/volume) 2.2 1.3 - 2.1 03/22/2017 [facility] Serum or plasma potassium measurement (moles/volume) Serum or plasma potassium measurement (moles/volume) 4.4 3.5 - 5.1 03/22/2017 [facility] Serum or plasma protein measurement (mass/volume) Serum or plasma protein measurement (mass/volume) 7.7 6.5 - 8.1 03/22/2017 [facility] Serum or plasma sodium measurement (moles/volume) Serum or plasma sodium measurement (moles/volume) 138 136 - 145 03/22/2017 [facility] Serum or plasma total bilirubin measurement (mass/volume) Serum or plasma total bilirubin measurement (mass/volume) 0.9 0.2 - 1.2 03/22/2017 [facility] Serum or plasma troponin i.cardiac measurement by detection limit <=0.01 NG/ml (mass/volume) Serum or plasma troponin i.cardiac measurement by detection limit <=0.01 NG/ml (mass/volume) 0.001 0 - 0.300 03/22/2017 [facility] Serum or plasma urea nitrogen measurement (mass/volume) Serum or plasma urea nitrogen measurement (mass/volume) 28 7 - 26 03/22/2017 [facility] Serum or plasma urea nitrogen/creatinine mass ratio Serum or plasma urea nitrogen/creatinine mass ratio 25 6 - 25 03/22/2017 [facility] Red Cell Distribution Width 15.3 11.7 - 14.4 03/22/2017 [facility] IM GRANULOCYTES % 0.4 0.0 - 1.0 03/22/2017 [facility] Absolute Immature Granulocyte (auto 0.04 0 - 0.1 03/22/2017 [facility] Aspartate Amino Transf (AST/SGOT) 19 5 - 34 03/22/2017 [facility] Vital Signs Vital Sign Value Date Comments Source Weight 145 08/19/2013 [facility] Weight 145 07/24/2013 [facility] Weight 143 07/14/2013 [facility] Encounters Location Location Details Encounter Type Encounter Number Reason For Visit Attending Provider ADM Date DC Date Status Source [facility] confirmed-hit wrong option [id number] 07/14/2013 07/14/2013 [facility] confirmed-hit wrong option [id number] 07/14/2013 07/14/2013 [facility] confirmed-hit wrong option [id number] 07/14/2013 07/14/2013 [facility] confirmed-hit wrong option [id number] 07/14/2013 07/14/2013 [facility] confirmed-hit wrong option [id number] 07/14/2013 07/14/2013 [facility] confirmed-hit wrong option [id number] 07/14/2013 07/14/2013 [facility] confirmed-hit wrong option [id number] 07/14/2013 07/14/2013 [facility] Unknown [id number] 07/24/2013 07/24/2013 [facility] Unknown [id number] 07/24/2013 07/24/2013 [facility] Unknown [id number] 07/24/2013 07/24/2013 [facility] Unknown [id number] 07/24/2013 07/24/2013 [facility] Unknown [id number] 07/24/2013 07/24/2013 [facility] Unknown [id number] 07/24/2013 07/24/2013 [facility] Unknown [id number] 07/24/2013 07/24/2013 [facility] Status on MRI results [id number] 08/05/2013 08/05/2013 [facility] Status on MRI results [id number] 08/05/2013 08/05/2013 [facility] Status on MRI results [id number] 08/05/2013 08/05/2013 [facility] Status on MRI results [id number] 08/05/2013 08/05/2013 [facility] Status on MRI results [id number] 08/05/2013 08/05/2013 [facility] Status on MRI results [id number] 08/05/2013 08/05/2013 [facility] Status on MRI results [id number] 08/05/2013 08/05/2013 [facility] confirmed [id number] 08/19/2013 08/19/2013 [facility] confirmed [id number] 08/19/2013 08/19/2013 [facility] confirmed [id number] 08/19/2013 08/19/2013 [facility] confirmed [id number] 08/19/2013 08/19/2013 [facility] Unknown [id number] 08/20/2013 08/20/2013 [facility] Unknown [id number] 08/20/2013 08/20/2013 [facility] Unknown [id number] 08/20/2013 08/20/2013 [facility] Unknown [id number] 08/20/2013 08/20/2013 [facility] switch provider [id number] 03/02/2015 03/02/2015 [facility] switch provider [id number] 03/02/2015 03/02/2015 [facility] 11/15/15-auth pending for EMG w/ RPO *mg;11/15/15- contacted PCP for referral submission to initiate auth *mg;11/15/15- referral on file *mg;Confirmed via , ins/demos are up to date -edegollado [id number] 11/22/2015 11/22/2015 [facility] Departed Emergency Room [id number] MEGHANN ROJAS MD 02/11/2017 02/11/2017 [facility] Departed Emergency Room [id number] RADU TAYLOR MD 03/13/2017 03/13/2017 [facility] Departed Emergency Room [id number] ARSH MOSS MD 03/22/2017 03/22/2017 [facility] Procedures Procedure Code Date Perfomer Comments Source Computed tomography of abdomen and pelvis with contrast [id number] 03/22/2017 [place] [facility]
--- OUTSIDE RECORDS SUMMARY | 2018-04-07 11:41 | XMS REPORT ---
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 Info Not Available Non Drug Allergy Encounters Encounter Location Date confirmed-hit wrong option [facility] July 14, 2013 Unknown [facility] July 24, 2013 Status on MRI results [facility] August 05, 2013 Problems Problem Type Condition ICD-9 Code Onset Dates Condition Status Assessment Screening for obesity V77.8 Active Problem Cervical spondylosis with myelopathy 721.1 Active Problem Screening for tobacco use V70.3 Active Problem 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 Assessment Cervical spondylosis with myelopathy 721.1 Active Assessment Screening for tobacco use V70.3 Active Problem Screening for obesity V77.8 Active Assessment 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 Medications Medication Code System Code Instructions Start Date End Date Status Dosage Tylenol Extra Strength MEDISPAN [address]-09 500 MG 0 July 18, 2005 Active NEEDED Mobic MEDISPAN [address]-37 7.5 MG 0 July 04, 2005 Active PRN Hydrocodone-Acetaminophen MEDISPAN [address]-84 10-325 MG Orally every 6 hrs Active 1 tablet as needed Amlodipine Besylate MEDISPAN [address]-49 5 MG Orally Once a day Active 1 tablet Social History Social History Element Qualifiers Date [...] July 24, 2013 Vital Signs Date/Time: July 14, 2013 Weight 143 lbs Summary Purpose eClinicalWorks Submission
[2018-04-07] MEDS ORDERED: BACITRACIN15 GM TOP (12:57)
--- NOTE | 2018-04-07 13:00 | NUR ---
NON ADHERENT DRESSING APPLIED WITH BACATRACIN AND JOLENE WRAP, BLEEDING CONTROLLED. PT TOLERATED WELL.
[2018-04-07] MEDS ORDERED: TETANUS/DIPHTHERIA TOX ADULT 0.5 ML SYR IM ONE (13:30)
== END 2018-04-07 13:20 | disposition home or self-care (01) ==
LOC: FSED 11:36
DX: S51.802A Unspecified open wound of left forearm, initial encounter (principal); W19.XXXA Unspecified fall, initial encounter; Z23 Encounter for immunization; I10 Essential (primary) hypertension; R00.1 Bradycardia, unspecified
CPT/HCPCS: 90714; 99284

== ENCOUNTER → 2018-06-17 | Day surgery (SDC) | payer MEDICARE ==
[2018-05-23 12:01] LABS: BASOPHILS # (AUTO) 0.1 (0.0-0.1); BASOPHILS % 0.9 % (0.0-1.0); EOSINOPHILS # (AUTO) 0.2 (0.0-0.4); EOSINOPHILS % 3.1 % (0.0-6.0); HEMATOCRIT 33.3 % (38.2-49.6); HEMOGLOBIN 10.8 g/dL (14.0-18.0); LYMPHOCYTES # (AUTO) 1.3 (1.0-3.2); LYMPHOCYTES % 23.4 % (18.0-39.1); MEAN CORPUSCULAR HGB CONC 32.4 g/dL (31-35); MEAN CORPUSCULAR VOLUME 95.7 fL (81-99); MONOCYTES # (AUTO) 0.8 (0.2-0.8); MONOCYTES % 14.1 % (4.4-11.3); NEUTROPHILS # (AUTO) 3.2 (2.1-6.9); NEUTROPHILS % 58.3 % (38.7-80.0); PLATELET COUNT 193 x10e3/uL (140-360); RED BLOOD COUNT 3.48 x10e6/uL (4.3-5.7); RED CELL DISTRIBUTION WIDTH 14.3 % (11.7-14.4)
[~2018-06-17] MED LIST changes: +ACEBUTOLOL HCL200 MG PO; +AMLODIPINE BESY10 MG PO; +BACITRACIN15 GM TOP; +BENAZEPRIL HCL10 MG PO; +FLOMAX0.4 MG PO; +FUROSEMIDE40 MG PO; +GABAPENTIN300 MG PO; +OXYBUTYNIN CHLOR5 M1; +TYLENOL; +TYLENOL PO
[2018-06-17 15:35] VITALS: BP 151/83
== END | disposition home or self-care (01) ==
LOC: OR 10:08
PROVIDERS: ATTEND Internal Medicine Gastroenterology
DX: R19.7 Diarrhea, unspecified (principal); K57.30 Diverticulosis of large intestine without perforation or abscess without bleeding; K64.8 Other hemorrhoids; N40.0 Benign prostatic hyperplasia without lower urinary tract symptoms; I10 Essential (primary) hypertension; R00.1 Bradycardia, unspecified; I44.0 Atrioventricular block, first degree; Z01.810 Encounter for preprocedural cardiovascular examination; Z01.812 Encounter for preprocedural laboratory examination; Z85.828 Personal history of other malignant neoplasm of skin
CPT/HCPCS: 36415; 45378; 45380; 85025; 93005

== ENCOUNTER 2018-07-04 10:24 | Inpatient (IN) | payer MEDICARE ==
[~2018-07-04] VITALS: Ht 162.6 cm; Wt 63.7 kg
[2018-07-04] MEDS ORDERED: PANTOPRAZOLE 40 MG 10ML VIAL IV NR (11:00)
[2018-07-04 11:37] LABS: BASOPHILS % 0.1 % (0.0-1.0); EOSINOPHILS # (AUTO) 0.1 (0.0-0.4); EOSINOPHILS % 0.9 % (0.0-6.0); HEMATOCRIT 25.5 % (38.2-49.6); HEMOGLOBIN 8.6 g/dL (14.0-18.0); LYMPHOCYTES # (AUTO) 0.7 (1.0-3.2); LYMPHOCYTES % 7.5 % (18.0-39.1); MEAN CORPUSCULAR HEMOGLOBIN 30.4 pg (28-32); MEAN CORPUSCULAR HGB CONC 33.7 g/dL (31-35); MEAN CORPUSCULAR VOLUME 90.1 fL (81-99); MONOCYTES # (AUTO) 0.7 (0.2-0.8); NEUTROPHILS # (AUTO) 8.3 (2.1-6.9); NEUTROPHILS % 84.2 % (38.7-80.0); PLATELET COUNT 234 x10e3/uL (140-360); RED BLOOD COUNT 2.83 x10e6/uL (4.3-5.7); RED CELL DISTRIBUTION WIDTH 14.1 % (11.7-14.4)
[2018-07-04 11:46] LABS: INR 0.9; PROTHROMBIN TIME 12.6 seconds (11.9-14.5)
[2018-07-04 11:47] LABS: PARTIAL THROMBOPLASTIN TIME 37.1 seconds (23.8-35.5)
[2018-07-04 11:58] LABS: ALBUMIN 3.3 g/dL (3.5-5.0); ALBUMIN/GLOBULIN RATIO 1.2 (0.8-2.0); ANION GAP 15.6 mmol/L (8-16); CALCIUM 8.9 mg/dL (8.4-10.2); CREATININE, SERUM 5.11 mg/dL (0.72-1.25); POTASSIUM 5.6 mmol/L (3.5-5.1)
--- NOTE | 2018-07-04 12:10 | Diagnostic Imaging Report ---
EXAM: CHEST SINGLE (PORTABLE) DATE: 07/04/2018 11:00 AM INDICATION: ^CHEST PAIN ^[id number] ^1120 ^Y COMPARISON: Chest x-ray, 03/22/2017 (report not available on PACS) FINDINGS: Lines and tubes: None Heart size normal. Areas of linear atelectasis have developed at the lung bases. No pulmonary consolidation, pleural effusion or pneumothorax. Patchy opacities in the right midlung may also be related to atelectasis. There is interposed colon below the right hemidiaphragm. Degenerative change at the right shoulder is again noted. IMPRESSION: Areas of atelectasis are seen in the lung bases and in the right midlung, likely accentuated by low lung volumes. Signed by: Dr. Ronald Schaffer M.D. on 07/04/2018 12:07 PM
[2018-07-04 12:17] LABS: CREATINE KINASE MB 57.8 ng/mL (0-5.0); THYROID STIMULATING HORMONE 9.397 uIU/mL (0.350-4.940)
[2018-07-04] MEDS ORDERED: SODIUM CHLORIDE 0.9% 1000ML 1,000 ML IV SCH (12:30)
[2018-07-04] MEDS ORDERED: SODIUM CHLORIDE 0.9% 250ML 250 ML IV ONE (12:30)
[2018-07-04 13:12] LABS: BILIRUBIN,URINE SMALL (NEGATIVE); CLARITY,URINE SL CLOUDY (CLEAR); COLOR,URINE YELLOW (YELLOW); KETONES,URINE NEGATIVE (NEGATIVE); LEUKOCYTE ESTERASE ,URINE NEGATIVE (NEGATIVE); NITRITE,URINE NEGATIVE (NEGATIVE); PROTEIN,URINE DIPSTICK NEGATIVE (NEGATIVE); URINE UROBILINOGEN 0.2 mg/dL (0.2 - 1)
[2018-07-04 13:28] LABS: AMORPHOUS SEDIMENT,URINE MANY (FEW)
--- NOTE | 2018-07-04 13:30 | NUR ---
INFORMED CONSENT OBTAINED AT THIS TIME FOR TRANSFUSION OF BLOOD OR BLOOD PRODUCTS. PT AWARE OF RISKS AND BENEFITS OF PROCEDURE EXPLAINED BY ER PHYSICIAN.
--- NOTE | 2018-07-04 14:00 | NUR ---
BLADDER SCAN PERFORMED AT BEDSIDE, 200 CC NOTED PER SONOGRAM, DR. ROJAS MADE AWARE AT THIS TIME.
[2018-07-04] MEDS ORDERED: SODIUM BICARBONATE 8.4% SYRING 150 ML in DEXTROSE 5% 1,000 ML IV ONE ×2 (15:00→18:45)
[2018-07-04] MEDS ORDERED: SODIUM CHLORIDE 0.9% 250ML 250 ML ONE ×2 (15:42→22:25)
--- NOTE | 2018-07-04 15:50 | NUR ---
BEDSIDE VERIFICATION COMPLETED AT THIS TIME, SEE BLOOD TRANSFUSION FLOWSHEET ON CHART.
[2018-07-04] MEDS ORDERED: PANTOPRAZOLE INJ 80 MG in SODIUM CHLORIDE 0.9% 100 ML IV SCH (18:15)
[2018-07-04] MEDS ORDERED: SOD POLYSTYRENE SULFONATE SUSP 15 GM/60 ML BTL PO ONE (18:45)
[2018-07-04 19:03] LABS: FREE THYROXINE INDEX 1.7999 (1.4-3.8)
[2018-07-04] MEDS: PANTOPRAZOL 40MG/SOD CHL 0.9% 50 ML IV SCH (20:28)
[2018-07-04 21:06] VITALS: BP 107/52
[2018-07-04 21:56] VITALS: BP 102/50
[2018-07-04 22:00] VITALS: BP 101/46
[2018-07-04 22:30] VITALS: BP 92/61
[2018-07-04 23:00] VITALS: BP 99/54
[2018-07-04 23:30] VITALS: BP 104/63
[2018-07-05] VITALS (26 sets, daily range): BP systolic 99–143; BP diastolic 44–106
--- NOTE | 2018-07-05 03:45 | NUR ---
patient received second unit of PRBC. patient tolerated transfusion well with no s/s distress.
--- NOTE | 2018-07-05 03:45 | NUR ---
wound care and nutrition consults ordered. patient states he has had multiple falls at home. pt has open wounds/scabs along all extremities. patient states he is suppose to have stents placed in legs soon. bilateral lower extremities shins with scabs throughout. erythema also noted. no warmth noted to area. Left foot with 2+edema. left shoulder chronic dislocation per patient. also to left shoulder is a large skin tear held together with steri strips/johana.
[2018-07-05] MEDS: PANTOPRAZOL 40MG/SOD CHL 0.9% 50 ML IV SCH ×5 (04:41→20:10)
[2018-07-05 05:20] LABS: BASOPHILS % 0.3 % (0.0-1.0); EOSINOPHILS # (AUTO) 0.3 (0.0-0.4); EOSINOPHILS % 3.8 % (0.0-6.0); HEMATOCRIT 31.7 % (38.2-49.6); LYMPHOCYTES # (AUTO) 0.8 (1.0-3.2); LYMPHOCYTES % 9.8 % (18.0-39.1); MEAN CORPUSCULAR HGB CONC 34.7 g/dL (31-35); MEAN CORPUSCULAR VOLUME 86.4 fL (81-99); MONOCYTES # (AUTO) 0.8 (0.2-0.8); MONOCYTES % 9.9 % (4.4-11.3); NEUTROPHILS # (AUTO) 5.8 (2.1-6.9); NEUTROPHILS % 75.9 % (38.7-80.0); PLATELET COUNT 193 x10e3/uL (140-360); RED BLOOD COUNT 3.67 x10e6/uL (4.3-5.7); RED CELL DISTRIBUTION WIDTH 14.9 % (11.7-14.4)
[2018-07-05 05:40] LABS: ANION GAP 13.3 mmol/L (8-16); CALCIUM 8.2 mg/dL (8.4-10.2); CREATININE, SERUM 2.79 mg/dL (0.72-1.25); POTASSIUM 4.3 mmol/L (3.5-5.1)
--- NOTE | 2018-07-05 12:38 | NUR ---
H&P cc: weak legs HPI; 82yoM, PCP??, developed weakness and inability to walk due to weak legs, found to have acute rhabdomyolysis and CARO. Admitted to ICU. PMH: former smoker, HTN, BP, neuropathy PSxh; knee, colon allergies; see emr fh/sh; ; quit cigs; meds; see MAR ROS: unreliable v/s; revd PE tired appearing anicteric ns1s2 mod bs soft nt nd no e/t; right forearm abrasion skin dry flat affect oriented to self; confused labs/meds; revd A/P: 82yoM Fall- PT consult Acute rhabdomyolysis- IVF; cpk check CARO- IVF Hyperkalemia- improving Hyponatremia- improving Metabolic acidosis- ivf Moderate anemia- s/p 2 U PRBC; check stool occult SUbclinical hypothyroidism- no tx needed; recheck in 6 weeks. Neuropathy- gabapentin Physical deconditioning- PT consult HTN- monitor on fluid BPH- flomax; ibrahim Former smoker Prop: pepcid dispo: fluids; cpk; nephr consult; ibrahim cct>35mins. Dereje Smith MD, PhD.
[2018-07-05] MEDS: SODIUM CHLORIDE 0.9% 1000ML 1,000 ML IV SCH ×2 (14:32→20:10)
[2018-07-05] MEDS: GABAPENTIN 300 MG CAP PO SCH (14:33)
[2018-07-05 16:52] LABS: ANION GAP 12.4 mmol/L (8-16); CALCIUM 8.4 mg/dL (8.4-10.2); CREATININE, SERUM 1.98 mg/dL (0.72-1.25); MAGNESIUM 2.2 MG/DL (1.3-2.1); POTASSIUM 4.4 mmol/L (3.5-5.1)
[2018-07-05] MEDS: TRAMADOL HCL 50 MG TAB PO PRN ×2 (17:30→23:35)
--- NOTE | 2018-07-05 19:14 | NUR ---
MD DOTY INFORMED OF CK RESULTS.
[2018-07-05] MEDS ORDERED: SODIUM CHLORIDE 0.9% 1000ML 2,000 ML IV ONE (20:00)
[2018-07-05] MEDS: SODIUM CHLORIDE 0.9% 1000ML 2,000 ML IV SCH (20:10)
[2018-07-06] VITALS (21 sets, daily range): BP systolic 108–156; BP diastolic 49–76
[2018-07-06] MEDS: PANTOPRAZOL 40MG/SOD CHL 0.9% 50 ML IV SCH ×5 (02:28→20:31)
[2018-07-06] MEDS: SODIUM CHLORIDE 0.9% 1000ML 1,000 ML IV SCH ×2 (02:28→06:47)
[2018-07-06 05:06] LABS: BASOPHILS # (AUTO) 0.1 (0.0-0.1); BASOPHILS % 0.7 % (0.0-1.0); EOSINOPHILS # (AUTO) 0.3 (0.0-0.4); HEMATOCRIT 32.8 % (38.2-49.6); HEMOGLOBIN 11.2 g/dL (14.0-18.0); LYMPHOCYTES % 11.7 % (18.0-39.1); MEAN CORPUSCULAR HEMOGLOBIN 30.5 pg (28-32); MEAN CORPUSCULAR HGB CONC 34.1 g/dL (31-35); MEAN CORPUSCULAR VOLUME 89.4 fL (81-99); MONOCYTES # (AUTO) 0.8 (0.2-0.8); MONOCYTES % 9.3 % (4.4-11.3); NEUTROPHILS # (AUTO) 6.3 (2.1-6.9); NEUTROPHILS % 74.1 % (38.7-80.0); PLATELET COUNT 203 x10e3/uL (140-360); RED BLOOD COUNT 3.67 x10e6/uL (4.3-5.7); RED CELL DISTRIBUTION WIDTH 15.6 % (11.7-14.4)
[2018-07-06 05:37] LABS: ANION GAP 11.9 mmol/L (8-16); CALCIUM 8.1 mg/dL (8.4-10.2); CREATININE, SERUM 1.22 mg/dL (0.72-1.25); POTASSIUM 3.9 mmol/L (3.5-5.1)
[2018-07-06] MEDS: SODIUM CHLORIDE 0.9% 1000ML 2,000 ML IV SCH (06:49)
--- NOTE | 2018-07-06 07:01 | NUR ---
IM- progress note O/N; no events ROS: unreliable v/s; revd PE tired appearing anicteric ns1s2 mod bs soft nt nd no e/t; right forearm abrasion skin dry flat affect oriented to self; confused labs/meds; revd A/P: 82yoM Fall- PT consult Acute rhabdomyolysis- IVF; cpk check CARO- IVF Hyperkalemia- improving Hyponatremia- improving Metabolic acidosis- ivf Moderate anemia- s/p 2 U PRBC; check stool occult SUbclinical hypothyroidism- no tx needed; recheck in 6 weeks. Neuropathy- gabapentin Physical deconditioning- PT consult HTN- monitor on fluid BPH- flomax; ibrahim Former smoker Prop: pepcid dispo: fluids; cpk; nephr consult; ibrahim cct>35mins. 07/06 renal fn improving; rhabdomyolysis improving; follow CPK Dereje Smith MD, PhD.
[2018-07-06] MEDS ORDERED: SODIUM CHLORIDE 0.9% 1000ML 1,000 ML IV STA (07:54)
[2018-07-06] MEDS ORDERED: SODIUM BICARBONATE 650 MG TAB PO SCH (09:00)
[2018-07-06] MEDS: TAMSULOSIN HCL 0.4 MG CAP PO SCH (10:50)
[2018-07-06] MEDS: GABAPENTIN 300 MG CAP PO SCH ×2 (10:50→17:30)
[2018-07-06] MEDS: AMLODIPINE BESYLATE 10 MG TAB PO SCH (10:50)
--- NOTE | 2018-07-06 11:00 | NUR ---
wound care completed to RUE skin tears x 2, allevyn applied to red nonblanchable sacral and heel protectors applied bilat heels with light purple area on both heels. will continue to monitor. will place wound care consult for further eval and orders
[2018-07-06] MEDS ORDERED: SODIUM BICARBONATE 8.4% SYRING 75 ML in SODIUM CHLORIDE 0.45% 1,000 ML IV SCH (13:30)
--- NOTE | 2018-07-06 13:47 | NUR ---
Nutrition Intervention Note RD Recommendation(s) for Physician: Advance diet when medically feasible and include Ensure Enlive TID with meals Plan of Care: RD following, monitoring for tolerance and adequacy Nutrition reason for involvement: MD Consult, MST RD Assessment Initial encounter with patient. Diet Hx: Pt has no known food allergies. Physical activity and function: Pt has not been walking. Needs setup with meals. Nutrition - focused physical findings: Pt is dentate, involuntary wt loss with a UBW 160-170 pounds. Pt is now 140.44 pounds and it took about 3-4 months to lose weight. Loss of lean body mass, loss of subcutaneous fat, prominent clavicle, acromion process, Scapula, ribs. Pt has not been eating well since colonoscopy about 3 weeks ago. Pt has chronic constipation and GERD. Pt denies any difficulty chewing or swallowing nor has any N,V,D Principal Problems/Diagnoses: Hypotension, upper GI bleed, anemia, rhabdomyolosis, CARO PMH: GERD,HTN GI: soft non tender Skin: Bilateral DTI, skin tare on right arm Labs: (07/06/2018) Meds: (07/06/18) Ht:64 Wt:140.44 BMI:24.1 IBW:130lbs Malnutrition Evaluation (07/06/2018) The patient meets criteria for MODERATE protein-calorie malnutrition. Energy intake: <75% of estimated energy requirements for >1 month Weight loss: >7.5% in 3 months (Acute) Fat loss: Moderate, Muscle loss: Moderate Supporting Evidence: Fluid accumulation: None Functional Status: measurably reduced Nutrition Prescription (Diet Order): Clear liquid Estimated Nutritional Needs: 1595 - 1915 calories/day ( 25-30kcal/kg CBW) 63-95g protein/day ( 1-1.5g pro/kg CBW) Diet Adequacy: Meeting fluid needs, Not meeting calorie needs, Not meeting protein needs Diet Education Needs Assessment: Diet education not indicated, patient on temporary/transition diet. Nutrition Care Level: Moderate Nutrition Diagnosis: Malnutrition related to chronic illness as evidenced by loss of lean body mass ans loss of functional status Goal: Patient will meet 75-100% of estimated needs by follow up Progress: Progressing Interventions: General healthful diet, Commercial beverage Monitoring/Evaluation: Total energy intake, Total protein intake, IVF, Prescription medication, Modified diet, Liquid supplement, Weight change Signed: ALEXANDRO Sharp RD, CNSC Addendum: 07/06/18 at 1507 by Los WILDER 07/06/2018 Lab results reviewed 07/06/2018 Medications reviewed
[2018-07-06] MEDS: TRAMADOL HCL 50 MG TAB PO PRN (14:05)
[2018-07-06] MEDS ORDERED: SODIUM CHLORIDE 0.9% 1000ML 2,000 ML IV ONE ×2 (16:30→23:45)
[2018-07-06] MEDS: SODIUM BICARBONATE 8.4% SYRING 75 ML in SODIUM CHLORIDE 0.45% 1,000 ML IV SCH (17:25)
--- NOTE | 2018-07-06 20:21 | Consultation ---
DATE OF CONSULTATION: Renal Consultation Thank you, Dr. Dereje Smith for the consult. REASON FOR CONSULTATION: Mr. Naqvi is a pleasant 82-year-old male patient with past medical history significant for prior history of hypertension, BPH, and anemia of chronic disease. Apparently, he came into the hospital with weakness and inability to walk due to weak legs, found to have acute rhabdomyolysis, acute kidney injury, unclear whether or not he has chronic kidney disease at baseline. The patient was subsequently admitted to the ICU, placed on IV fluid hydration. On presentation, the patient had creatinine of 5.1, potassium 5.6, bicarb was 19, creatine kinase was at 4057. Renal consultation has been asked for the management of the patient's acute kidney injury as well as acute rhabdomyolysis. Currently, the patient does not have any fever, chills, nausea, vomiting, or diarrhea. He said his strength is improving. His weakness is improving. PAST MEDICAL HISTORY: As outlined above. ALLERGIES: TESTOSTERONE. SOCIAL HISTORY: No tobacco or alcohol use. FAMILY HISTORY: Noncontributory. REVIEW OF SYSTEMS: See HPI, otherwise all systems negative. MEDICATIONS: Reviewed per chart. PHYSICAL EXAMINATION: VITAL SIGNS: Blood pressure is 138/74, pulse is 60, and afebrile. NECK: No cervical lymphadenopathy. Supple without masses. HEENT: Moist appearing oral mucosa. SKIN: Moist with good skin turgor. CHEST: Chest wall with good expansion. No chest wall tenderness. LUNGS: Clear to auscultation bilaterally. CARDIOVASCULAR: S1, S2. No rubs, gallop, or murmur. ABDOMEN: Soft. Positive bowel sounds. Nontender. EXTREMITIES: No evidence of lower extremity edema. No clubbing or cyanosis. NEUROLOGIC: Awake, alert, and grossly nonfocal exam. LABORATORY DATA: On presentation, creatinine was 5.11, now creatinine today is 1.22. Sodium 137 today, potassium 3.9, chloride 110, carbon 19, BUN 20, creatinine is 1.22, calcium is 8.1. Creatine kinase is 6529, was 8891. IMPRESSION: 1. Acute kidney injury on possible chronic kidney disease, stage not clear. Acute kidney injury is likely secondary to the patient developing acute onset of rhabdomyolysis, volume depletion. I agree with IV fluid hydration. We will change the fluids to half-normal saline plus 75 mEq of sodium bicarb to run at 150 mL/h. Check daily CPK levels. Daily basic metabolic panel levels, magnesium, phosphorus, and make further recommendations. We will check urine electrolytes as well as and baseline renal ultrasound to see whether or not he has chronic kidney disease. 2. We will continue to monitor closely. Avoid potential nephrotoxins, avoid JLOENE inhibitors, ARBs, non-steroidal anti-inflammatory drugs and IV dye. 3. Metabolic acidosis could be from the acid load from the normal saline. We will change the fluids to half NS plus 75 mEq of sodium bicarbonate at 150 mL/h. We will make further recommendations. 4. Acute rhabdomyolysis. Continue with aggressive IV fluid hydration. Monitor serial CPK levels. 5. Hyperkalemia, resolved, now we will continue to monitor closely. Thank you once again for the consult. We will follow the patient closely with you and make further recommendations. Cesar Grider MD TH/MODL /[id number] cc: Dereje Smith MD
[2018-07-07] VITALS (14 sets, daily range): BP systolic 137–159; BP diastolic 51–88
[2018-07-07] MEDS: SODIUM BICARBONATE 8.4% SYRING 75 ML in SODIUM CHLORIDE 0.45% 1,000 ML IV SCH ×2 (02:38→12:29)
[2018-07-07] MEDS: PANTOPRAZOL 40MG/SOD CHL 0.9% 50 ML IV SCH ×5 (02:38→21:55)
[2018-07-07 05:17] LABS: BASOPHILS # (AUTO) 0.1 (0.0-0.1); BASOPHILS % 0.7 % (0.0-1.0); EOSINOPHILS # (AUTO) 0.5 (0.0-0.4); EOSINOPHILS % 6.5 % (0.0-6.0); HEMOGLOBIN 11.1 g/dL (14.0-18.0); LYMPHOCYTES # (AUTO) 0.9 (1.0-3.2); LYMPHOCYTES % 13.3 % (18.0-39.1); MEAN CORPUSCULAR HEMOGLOBIN 30.4 pg (28-32); MEAN CORPUSCULAR HGB CONC 33.6 g/dL (31-35); MEAN CORPUSCULAR VOLUME 90.4 fL (81-99); MONOCYTES # (AUTO) 0.8 (0.2-0.8); MONOCYTES % 11.4 % (4.4-11.3); NEUTROPHILS # (AUTO) 4.7 (2.1-6.9); NEUTROPHILS % 67.8 % (38.7-80.0); PLATELET COUNT 199 x10e3/uL (140-360); RED BLOOD COUNT 3.65 x10e6/uL (4.3-5.7); RED CELL DISTRIBUTION WIDTH 15.7 % (11.7-14.4)
[2018-07-07 05:36] LABS: ALANINE AMINOTRANSFERASE 53 IU/L (0-55); ALBUMIN 2.3 g/dL (3.5-5.0); ALBUMIN/GLOBULIN RATIO 0.9 (0.8-2.0); ALKALINE PHOSPHATASE 61 IU/L (40-150); ANION GAP 9.5 mmol/L (8-16); BLOOD UREA NITROGEN 10 mg/dL (7-26); BUN/CREATININE RATIO 14 (6-25); CALCIUM 7.9 mg/dL (8.4-10.2); CARBON DIOXIDE 20 mmol/L (22-29); CHLORIDE 110 mmol/L (98-107); CREATININE, SERUM 0.74 mg/dL (0.72-1.25); EST GLOMERULAR FILTRATION RATE > 60 ML/MIN (60-); GLUCOSE 85 mg/dL (74-118); POTASSIUM 3.5 mmol/L (3.5-5.1); SODIUM 136 mmol/L (136-145)
[2018-07-07] MEDS: AMLODIPINE BESYLATE 10 MG TAB PO SCH (08:00)
[2018-07-07] MEDS: TAMSULOSIN HCL 0.4 MG CAP PO SCH (08:00)
[2018-07-07] MEDS: GABAPENTIN 300 MG CAP PO SCH ×2 (08:00→17:50)
--- NOTE | 2018-07-07 09:34 | NUR ---
called report to deanna
--- NOTE | 2018-07-07 09:55 | NUR ---
RECEIVED PT AAOX 2. PT IS CONFUSED. BED ALARM IS ON. BED IS AT LOWEST POSITION AND LOCKED. CALL LIGHT WITH IN REACH. FAMILY AT BEDSIDE. PT DENIES NEEDS AT THIS TIME.
--- NOTE | 2018-07-07 10:06 | NUR ---
PT CONFUSED AND UNABLE TO SIGN IMM, LEFT COPY IN ROOM
--- NOTE | 2018-07-07 11:00 | NUR ---
PT HAS MULTIPLE SKIN TEAR AND BRUISING ON UPPER AND LOWER EXTREMITIES BILATERALLY, STAGE 1 ON SACRUM. NEW DRESSING APPLIED.
[2018-07-07] MEDS: TRAMADOL HCL 50 MG TAB PO PRN ×2 (11:01→16:54)
[2018-07-07] MEDS ORDERED: POTASSIUM CHLORIDE 20 MEQ TAB CR PO ONE (13:17)
--- NOTE | 2018-07-07 13:45 | NUR ---
CALLED DR RODRIGO NG. INFORMED CALCIUM LEVEL 7.9. NO NEW ORDERS RECEIVED.
--- NOTE | 2018-07-07 15:03 | Progress Note ---
DATE: 07/07/2018 Renal Progress Note SUBJECTIVE: Followed for acute kidney injury, which is recovered now. Creatinine has normalized. CPK level is also almost normalized to 2282. No nausea, no vomiting, no shortness of breath. OBJECTIVE: VITAL SIGNS: Vital signs have been noted and stable. LUNGS: Clear to auscultation bilaterally. CARDIOVASCULAR: S1, S2. No rub. ABDOMEN: Soft, nontender. EXTREMITIES: No edema. LABS: Potassium 3.5, bicarb 20, BUN 10, and creatinine 0.74. IMPRESSION AND PLAN: 1. Acute kidney injury, resolved. We will decrease bicarb drip to 75 mL/h, likely stop tomorrow. 2. Hypertension, stable. 3. Metabolic acidosis, improved. We will continue bicarb drip for one more day and then discontinue. 4. Rhabdomyolysis, also resolved. Cesar Grider MD /MODL /[id number]
--- NOTE | 2018-07-07 15:17 | NUR ---
IM- progress note O/N; no events ROS: unreliable v/s; revd PE tired appearing anicteric ns1s2 mod bs soft nt nd no e/t; right forearm abrasion skin dry flat affect oriented to self; confused labs/meds; revd A/P: 82yoM Fall- PT consult Acute rhabdomyolysis- IVF; cpk check CARO- IVF Hyperkalemia- improving Hyponatremia- improving Metabolic acidosis- ivf Moderate anemia- s/p 2 U PRBC; check stool occult SUbclinical hypothyroidism- no tx needed; recheck in 6 weeks. Neuropathy- gabapentin Physical deconditioning- PT consult HTN- monitor on fluid BPH- flomax; patrice Former smoker Prop: pepcid dispo: fluids; cpk; nephr consult; patrice cct>35mins. 07/06 renal fn improving; rhabdomyolysis improving; follow CPK 07/07 improving; cont fluids; PT consult; Dereje Smith MD, PhD.
[2018-07-07] MEDS ORDERED: ACETAMINOPHEN/CODEINE 300MG - 30MG TAB PO PRN (17:00)
--- NOTE | 2018-07-07 19:00 | NUR ---
BEDSIDE SHIFT REPORT GIVEN TO MICROFILM EQUIPMENT INSPECTOR RN. PT DENIED FURTHER NEEDS.
--- NOTE | 2018-07-07 22:15 | NUR ---
PATIENT GIVEN BATH BY TECH, WRAPPED GAUZE WAS SOAKED WITH WATER AND ALSO SOILED IN DRAINAGE. REWRAPPED WOUND WITH FRESH CLEAN GAUZE DRESSING, PATIENT STATES THAT HE IS RELAXED, NO DISTRESS NOTED, CALL LIGHT WITHIN REACH, ALARM SET, WILL CONTINUE TO MONITOR.
[2018-07-08] VITALS (9 sets, daily range): BP systolic 106–169; BP diastolic 54–77
[2018-07-08] MEDS: SODIUM BICARBONATE 8.4% SYRING 75 ML in SODIUM CHLORIDE 0.45% 1,000 ML IV SCH ×2 (03:27→14:22)
[2018-07-08] MEDS: PANTOPRAZOL 40MG/SOD CHL 0.9% 50 ML IV SCH ×5 (03:27→22:45)
[2018-07-08 06:39] LABS: ANION GAP 8.6 mmol/L (8-16); BLOOD UREA NITROGEN 6 mg/dL (7-26); BUN/CREATININE RATIO 9 (6-25); CALCIUM 8.1 mg/dL (8.4-10.2); CARBON DIOXIDE 23 mmol/L (22-29); CHLORIDE 104 mmol/L (98-107); CREATININE, SERUM 0.69 mg/dL (0.72-1.25); EST GLOMERULAR FILTRATION RATE > 60 ML/MIN (60-); GLUCOSE 92 mg/dL (74-118); MAGNESIUM 1.2 MG/DL (1.3-2.1); PHOSPHORUS 2.1 MG/DL (2.3-4.7); POTASSIUM 3.6 mmol/L (3.5-5.1); SODIUM 132 mmol/L (136-145)
--- NOTE | 2018-07-08 06:41 | NUR ---
IM- progress note O/N; no events ROS: unreliable v/s; revd PE tired appearing anicteric ns1s2 mod bs soft nt nd no e/t; right forearm abrasion skin dry flat affect oriented to self; confused labs/meds; revd A/P: 82yoM Fall- PT consult Acute rhabdomyolysis- IVF; cpk check CARO- IVF Hyperkalemia- improving Hyponatremia- improving Metabolic acidosis- ivf Moderate anemia- s/p 2 U PRBC; check stool occult SUbclinical hypothyroidism- no tx needed; recheck in 6 weeks. Neuropathy- gabapentin Physical deconditioning- PT consult HTN- monitor on fluid BPH- flomax; ibrahim Former smoker Prop: pepcid dispo: fluids; cpk; nephr consult; ibrahim cct>35mins. 07/06 renal fn improving; rhabdomyolysis improving; follow CPK 07/07 improving; cont fluids; PT consult; 07/08 snf heydi Smith MD, PhD.
--- NOTE | 2018-07-08 07:00 | NUR ---
BEDSIDE SHIFT RECEIVED FROM MANAGER GYN RN. BED IS LOCKED AND AT LOWEST POSITION. BED ALARM IS ON. CALL ARVIZU WITH IN REACH.PT DENIES NEEDS AT THIS TIME.
--- NOTE | 2018-07-08 07:31 | NUR ---
REPORT GIVEN TO DAY NURSE, PATIENT IS RESTING COMFORTABLY, NO SIGNS OF DISTRESS NOTED.
--- NOTE | 2018-07-08 07:55 | Diagnostic Imaging Report ---
EXAM: Renal Ultrasound INDICATION: Evaluate size. COMPARISON: None TECHNIQUE: Transverse and longitudinal images of the kidneys and bladder were obtained. FINDINGS: Right Kidney: Length: 8.9 x 4.1 x 3.5 cm Appearance: Normal echogenicity. Collecting system: No hydronephrosis Stones: None Cyst/Mass: No evidence of solid mass. There is a simple appearing anechoic right upper pole cyst, measuring up to 1.5 cm. Left Kidney: Length: 9.7 x 5.7 x 4.3 cm Appearance: Normal echogenicity. Collecting system: No hydronephrosis Stones: None Cyst/Mass: None Bladder: Decompressed secondary to Leija catheter. Other: Incidental small left pleural effusion. IMPRESSION: Simple appearing right upper pole renal cyst. Otherwise unremarkable sonographic appearance of the kidneys. Incidental small left pleural effusion. Signed by: Dr. Chioma Luciano MD on 07/08/2018 7:51 AM
[2018-07-08] MEDS: GABAPENTIN 300 MG CAP PO SCH ×2 (09:14→18:07)
[2018-07-08] MEDS: AMLODIPINE BESYLATE 10 MG TAB PO SCH (09:14)
[2018-07-08] MEDS: TAMSULOSIN HCL 0.4 MG CAP PO SCH (09:14)
--- NOTE | 2018-07-08 09:38 | NUR ---
SPOKE WITH PT ABOUT SNF REFERRAL HE STATES WANTS TO CONTINUE WITH DR RODRIGO DOMÍNGUEZ AND CO TO [facility], SIGNED CHOICE FILED IN CHART AND FAXED CLINICALS TO [phone].
--- NOTE | 2018-07-08 09:47 | NUR ---
DUE TO PT CONFUSION YESTERDAY CALLED AND LEFT MESSAGE WITH [facility] [phone] TO MAKE CERTAIN CHOICE IS ACCEPTABLE. PER SON THAT ANSWERED PHONE IS ON WAY TO BUILDING.
--- NOTE | 2018-07-08 10:40 | NUR ---
PT SODIUM LEVEL IS 132. CALLED DR. WALLACE AND LEFT A VOICE MESSAGE
--- NOTE | 2018-07-08 14:40 | NUR ---
WOUND CARE NURSE AT BEDSIDE. COMPLETED WOUND DRESSING WITH WOUND CARE NURSE.
--- NOTE | 2018-07-08 14:44 | NUR ---
WOUND CARE CONSULTATION: INITIAL EVALUATION Patient admitted from Home to ER for S/P recurrent falls in last 2 wks at home-, generalized weakness, upper GI bleed, Anemia, Rhabdomyolysis, WC CONSULTED FOR SACRAL ULCER. LABS: WBC6.93 HGB11.1 HCT33 NEUT%67.8 GLU92 ALB2.3 PATIENT VISIT: Patient calm in bed AAOX3. In good spirits. Frail skin with multiple scabs and skin tears to BLE and BUE. Presents with Skin tears to RUE. Partial thickness. Appears Stable. with 100% granulation. Denies pain, denies discomfort at site. Area weeping serous fluid. moderate. Sacral- non blanchable redness noted, Annular redness 1x1 cm. Bilateral heels -non blanchable purpled areas, annular shaped, reddened periwound that is blanchable. Heel protectors in place and Allevyn heel foam dressings in place. Patient states to have been recently using scooter/ wheeled chair at home and places heels on foot rests for long periods of time. He feels ulcers started then. Alternating Pressure air mattress in place and set to patient current weight. BLE presents with abrasions, scabbed and closed. Areas appear stable. sharp edges without pattern. States he sustained multiple abrasions during the falls he had at home. Richie Score 12 Moderate PUP Active Heels offloaded with pillow assist. IMPRESSION: 1. BUE - Skin Tears 2. Sacral - Stage I - Pressure Ulcer - Present on Admission 3. Bilateral Heels - DTIs - Present On Admission 4. BLE abrasions RECOMMENDATION: 1. BUE - Skin Tears: - Cleanse wounds with NS and 4x4 gauze. - Apply Xeroform Single Layer and Cover with ABD Pad and Wrap with Light Kerlix Wrap Daily 2. Sacral - Stage I - Pressure Ulcer - Present on Admission: - Cleanse area with NS and 4x4 gauze and pat dry thoroughly. - Apply [place] Cream and Cover with Allevyn Foam Dressing q12H. 3. Bilateral Heels - DTIs - Present On Admission - Cleanse wounds with NS and 4x4 gauze then pat dry thoroughly - Apply [place] Cream q12H and cover with Allevyn Heel Foam Dressings Daily. 4. BLE abrasions - Cleanse with NS and 4x4 gauze then paint with Betadine and Leave Open To Air Daily. 5. Continue Moderate PUP 6. Offload Heels with Heel Protectors/ Pillows while in bed. 7. Turn and reposition patient q2h using turning clock schedule. 8. Maintain HOB elevated no greater than 30 degrees as tolerated. 9. Continue Alternating Pressure Air Mattress and set to patient current weight. Thank you for consulting with Wound Care. Addendum: 07/08/18 at 1457 by Robles Nicholson RN Amended: Links added.
[2018-07-08] MEDS ORDERED: ZINC OXIDE / BALSAM PERU 30 GM TUBE TOP SCH (15:00)
[2018-07-08] MEDS ORDERED: MAGNESIUM SULFATE 2 GM/50 ML IV ONE (16:30)
--- NOTE | 2018-07-08 16:44 | Progress Note ---
DATE: 07/08/2018 Renal Progress Note SUBJECTIVE: Followed for acute kidney injury from which he has recovered completely. His creatinine is 0.69, now starting to retain fluid. Sodium is down to 132. The patient is on IV fluids. Bicarb is also better at 23. Patient's CPK is 1292. No nausea, no vomiting. Has some shortness of breath. Mild degree of swelling over his legs. OBJECTIVE: VITAL SIGNS: Have been noted and are stable. LUNGS: Clear to auscultation bilaterally. CARDIOVASCULAR: S1, S2. No rub. ABDOMEN: Soft, nontender. EXTREMITIES: Trace edema to 1+ edema. LABORATORY DATA: Sodium 132, potassium 3.6, creatinine 0.69, 2.1 phosphorus and 1.2 magnesium. IMPRESSION AND PLAN: 1. Acute kidney injury, resolved. We will discontinue IV fluids. 2. Metabolic acidosis resolved. Also discontinue IV fluids. 3. Rhabdomyolysis, also resolved. We will discontinue IV fluids. 4. Hypophosphatemia. We will replace with K-Phos IV. 5. Hyponatremia. We will give one dose of Lasix to allow for more diuresis and discontinue IV fluids. 6. Hypomagnesemia. We will replace and make further recommendations. 7. Hypophosphatemia. We will replace with K-Phos and recheck. Thank you once again. Cesar Grider MD /MODL /[id number]
[2018-07-08] MEDS ORDERED: FUROSEMIDE INJ 10 MG/ML 2 ML VIAL IV NR ×2 (16:45→20:00)
[2018-07-08] MEDS ORDERED: POTASSIUM PHOSPHATE 20 MM in SODIUM CHLORIDE 0.9% 250ML 250 ML IV ONE (17:15)
[2018-07-08] MEDS ORDERED: MAGNESIUM SULF 1GRAM/DEXTROSE 100 ML IV SCH (17:30)
[2018-07-08] MEDS: ZINC OXIDE / BALSAM PERU 30 GM TUBE TOP SCH (18:30)
--- NOTE | 2018-07-08 19:00 | NUR ---
BEDSIDE SHIFT REPORT GIVEN TO AUDIO EXPERIENCE EXPERT RN. PT DENIED FURTHER NEEDS.
[2018-07-08] MEDS: MAGNESIUM SULF 1GRAM/DEXTROSE 100 ML IV SCH ×3 (19:30→21:30)
--- NOTE | 2018-07-08 20:00 | NUR ---
INITIAL ASSESSMENT COMPLETE, NO DISTRESS NOTED, PT ARMS WEEPING, COVERED WITH KERLEX, PT IS TURN PT, HEEL PROTECTERS ON, IV INFUSING TO UPPER AND LOWER ARM, NO PAIN AT THIS TIME, CALL LIGHT IN REACH, TOLD TO CALL FOR NEEDS,
[2018-07-08] MEDS: TRAMADOL HCL 50 MG TAB PO PRN (21:42)
[2018-07-09 00:02] VITALS: BP 108/55
[2018-07-09] MEDS: PANTOPRAZOL 40MG/SOD CHL 0.9% 50 ML IV SCH ×3 (03:45→13:20)
[2018-07-09] MEDS: TRAMADOL HCL 50 MG TAB PO PRN ×2 (04:51→16:16)
[2018-07-09 05:23] VITALS: BP 117/61
[2018-07-09] MEDS: ZINC OXIDE / BALSAM PERU 30 GM TUBE TOP SCH ×2 (06:00→16:01)
[2018-07-09 06:15] LABS: ANION GAP 10.9 mmol/L (8-16); BLOOD UREA NITROGEN 6 mg/dL (7-26); BUN/CREATININE RATIO 8 (6-25); CALCIUM 8.4 mg/dL (8.4-10.2); CARBON DIOXIDE 23 mmol/L (22-29); CHLORIDE 101 mmol/L (98-107); CREATININE, SERUM 0.72 mg/dL (0.72-1.25); EST GLOMERULAR FILTRATION RATE > 60 ML/MIN (60-); GLUCOSE 98 mg/dL (74-118); MAGNESIUM 1.9 MG/DL (1.3-2.1); PHOSPHORUS 3.1 MG/DL (2.3-4.7); POTASSIUM 3.9 mmol/L (3.5-5.1); SODIUM 131 mmol/L (136-145)
--- NOTE | 2018-07-09 07:10 | NUR ---
REPORT GIVEN, PT IN BED, SLEEPING, NO DISTRESS NOTED, VS STABLE
--- NOTE | 2018-07-09 07:38 | NUR ---
D/C summary Principal dx: Fall- PT consult Acute rhabdomyolysis- IVF; cpk check CARO- IVF Hyperkalemia- improving Hyponatremia- improving Metabolic acidosis- ivf Moderate anemia- s/p 2 U PRBC; check stool occult SUbclinical hypothyroidism- no tx needed; recheck in 6 weeks. Neuropathy- gabapentin Physical deconditioning- PT consult HTN- monitor on fluid BPH- flomax; ibrahim Former smoker Prop: pepcid dispo: fluids; cpk; nephr consult; ibrahim cct>35mins. 07/06 renal fn improving; rhabdomyolysis improving; follow CPK 07/07 improving; cont fluids; PT consult; 07/08 snf eval 07/09 renal U/S no chr changes. d/c to SNF Stable f/u pcp 1 week and cardiology 1 week d/c>35mins Dereje Smith MD, PhD.
[2018-07-09 08:00] VITALS: BP 118/58
[2018-07-09] MEDS: GABAPENTIN 300 MG CAP PO SCH ×2 (08:28→16:16)
[2018-07-09] MEDS: AMLODIPINE BESYLATE 10 MG TAB PO SCH (08:28)
[2018-07-09] MEDS: TAMSULOSIN HCL 0.4 MG CAP PO SCH (08:28)
[2018-07-09 08:35] VITALS: BP 118/58
--- NOTE | 2018-07-09 09:09 | NUR ---
SPOKE WITH SRUTHI AT [facility] WHOM STATES THIS PT HAS A $700 BALANCE AND NEEDS TO ARRANGE PAYMENT BEFORE THEY WILL ACCEPT PT.
[2018-07-09] MEDS ORDERED: FUROSEMIDE INJ 10 MG/ML 4 ML VIAL IV SCH (09:15)
--- NOTE | 2018-07-09 10:06 | NUR ---
patient's states "My was scheduled for stent placement on 07/10/18. This was scheduled prior to hospitalization. " Dr. Smith made aware of situation. See orders.
[2018-07-09 11:36] VITALS: BP 117/61
--- NOTE | 2018-07-09 11:39 | NUR ---
SPOKE WITH DR HUBBARD, HE STATES PT WILL NEED TO RESCHEDULE HIS STENT PLACEMENT, IT WILL NOT HAPPEN THIS VISIT. HE STATES TO CONTINUE WITH THE SNF.
--- NOTE | 2018-07-09 11:43 | Progress Note ---
DATE: 07/09/2018 SUBJECTIVE: Follows for acute kidney injury from which he has recovered now. No nausea, no vomiting, no shortness of breath. The patient's creatinine is 0.7, BUN is 6, and potassium 3.9. No current fever. No chills. Does have some shortness of breath. OBJECTIVE: VITAL SIGNS: Have been noted and are stable. LUNGS: Clear to auscultation bilaterally. CARDIOVASCULAR: S1, S2. No rub. ABDOMEN: Soft, nontender. EXTREMITIES: There is evidence of edema over the upper and lower extremities both. LABORATORY DATA: As follows, potassium 3.9, BUN 6, and creatinine 0.7. IMPRESSION AND PLAN: 1. Acute kidney injury, resolved. 2. Hypertension, stable. 3. Hyponatremia, suspect secondary to patient developing volume excess. We will give more Lasix and re-evaluate. 4. Mild rhabdomyolysis, resolved now. Cesar Grider MD /MODL /[id number]
--- NOTE | 2018-07-09 13:00 | NUR ---
Paged to clarify of diet. states " I have not seen patient, you will have to page attending."
--- NOTE | 2018-07-09 14:32 | NUR ---
Received patient via stretcher. Accompanied by and daughter. AAOX1 to person. Pleasantly confused. Respirations even and unlabored. Oriented patient and family to room. Instructed to use call light for assistance. Voiced understanding. Addendum: 07/09/18 at 1727 by JERICA TOBIAS RN error
--- NOTE | 2018-07-09 14:57 | NUR ---
Nutrition Follow-up Note RD Recommendation(s) for Physician: -Rec ADAT to GI soft diet -Rec Ensure Enlive TID to increase protein-calorie intake -The patient meets criteria for MODERATE protein-calorie malnutrition. Plan of Care: RD following, monitoring for tolerance and adequacy, ONS Nutrition reason for involvement: Follow up RD Assessment 07/09: Pt was discussed during AM rounds. Pt has been on clear liquid x 5 days. Visited pt in the room. Pt reported good tolerance to clear liquid diet. No complains of nausea or vomiting. Pt is able to swallow and chew well. RD rec Ensure TID and pt was agreeable with plan. Diet has been advanced to full liquid for dinner tonight. Will continue to monitor and follow. 07/06: Initial encounter with patient. Diet Hx: Pt has no known food allergies. Physical activity and function: Pt has not been walking. Needs setup with meals. Nutrition - focused physical findings: Pt is dentate, involuntary wt loss with a UBW 160-170 pounds. Pt is now 140.44 pounds and it took about 3-4 months to lose weight. Loss of lean body mass, loss of subcutaneous fat, prominent clavicle, acromion process, Scapula, ribs. Pt has not been eating well since colonoscopy about 3 weeks ago. Pt has chronic constipation and GERD. Pt denies any difficulty chewing or swallowing nor has any N,V,D Principal Problems/Diagnoses: Hypotension, upper GI bleed, anemia, rhabdomyolosis, CARO PMH: GERD, HTN GI: soft non tender Skin: Bilateral DTI, skin tare on right arm Labs: (07/09) Na 131 L, BUN 6 L Meds: protonix, lasix Ht:64 in Wt:140.44 lb BMI:24.1 kg/m2 IBW:130lbs Malnutrition Evaluation (07/06/2018) The patient meets criteria for MODERATE protein-calorie malnutrition. Energy intake: <75% of estimated energy requirements for >1 month Weight loss: >7.5% in 3 months (Acute) Fat loss: Moderate, Muscle loss: Moderate Supporting Evidence: Fluid accumulation: None Functional Status: measurably reduced Nutrition Prescription (Diet Order): Full liquid Estimated Nutritional Needs: 1595 - 1915 calories/day ( 25-30kcal/kg CBW) 63-95g protein/day ( 1-1.5g pro/kg CBW) Diet Adequacy: Not meeting calorie needs, Not meeting protein needs Diet Education Needs Assessment: Diet education not indicated, patient on temporary/transition diet. Nutrition Care Level: Moderate Nutrition Diagnosis: Malnutrition related to chronic illness as evidenced by loss of lean body mass ans loss of functional status Goal: Patient will meet 75-100% of estimated needs by follow up Progress: Progressing Interventions: General healthful diet, Commercial beverage Monitoring/Evaluation: Total energy intake, Total protein intake, IVF, Prescription medication, Modified diet, Liquid supplement, Weight change Signed: Lisette Woody, MS, RD, LD
--- NOTE | 2018-07-09 15:49 | NUR ---
PT ACCEPTED TO [facility] TO ROOM [address] RODRIGO DOMÍNGUEZ, RTF COMPLETED AND GIVEN TO NURSE
[2018-07-09 16:00] VITALS: BP 120/62
--- NOTE | 2018-07-09 17:01 | NUR ---
aware patient tolerated full liquid diet. Aware patient has not had BM since admission. No new orders
--- NOTE | 2018-07-09 17:02 | NUR ---
aware patient has not been seen by and has room available at [facility]. Per "okay to discharge"
--- NOTE | 2018-07-09 17:04 | NUR ---
Report called to kaushal and given to Rachel Shen RN of patient's status. Aware patient to be discharged with Leija catheter. Per Rachel "go ahead and discontinue IV. We do not need it here"
--- NOTE | 2018-07-09 19:20 | NUR ---
Right Upper arm and Right FA IV discontinued. No signs of infiltration noted. 2x2 gauze and paper tape placed. Taken via stretcher by EMS. No s/s of acute distress noted. Transfer package given to EMS. All personal belongings taken with patient.
== END 2018-07-09 19:25 | DRG 683 ==
LOC: ER 10:35 → ERHOLD 18:48 → ICU 20:51 → MED/SURG2 07-07 10:26
PROVIDERS: ADMIT Internal Medicine; ATTEND Internal Medicine
DX: N17.9 Acute kidney failure, unspecified (principal); L03.116 Cellulitis of left lower limb; E87.2 Acidosis; D50.0 Iron deficiency anemia secondary to blood loss (chronic); E78.5 Hyperlipidemia, unspecified; E03.4 Atrophy of thyroid (acquired)
CPT/HCPCS: 36415; 51700; 71045; 76770; 80048; 80053; 81001; 82550; 82553; 82570; 83735; 84100; 84300; 84436; 84443; 84479; 84484; 85025; 85610; 85730; 86850; 86900; 86920; 87086; 93005; 97139; 99285; J1940; J3475; J7030; J7050; J7070; P9016

== ENCOUNTER 2018-08-07 09:31 | Observation (INO) | payer MEDICARE ==
[~2018-08-07] VITALS: Ht 161.3 cm; Wt 68.0 kg
[2018-08-07] VITALS (12 sets, daily range): BP systolic 125–156; BP diastolic 57–75
--- OUTSIDE RECORDS SUMMARY | 2018-08-07 09:35 | XMS REPORT | Continuity of Care Document ---
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 Name Role Phone [employer] Unavailable Unavailable Problems Problem Status Onset Date Classification Date Reported Comments Source Screening for obesity Active Problem 01/03/2016 [facility] [place] Cervical spondylosis with myelopathy Active Problem 01/03/2016 [facility] Screening for tobacco use Active Problem 01/03/2016 [facility] Displacement of lumbar intervertebral disc without myelopathy Active Problem 01/03/2016 [facility] Screening for hypertension Active Problem 01/03/2016 [facility] Abnormality of gait Active Diagnosis 08/26/2013 [facility] 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 [facility] 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 [facility] Anterior shoulder dislocation Active Problem 03/22/2017 [facility] Leg dysfunction Active Problem 03/22/2017 [facility] Medications Medication Details Route Status Patient Instructions Ordering Provider Order Date Source Hydrocodone Bit/Acetaminophen* (Vicodin 5-500 Tablet*) 1 Each Tablet, 1 Tab Oral Every 4 Hours as needed Active 04/13/2015 [facility] Sulfamethoxazole/Trimethoprim (Bactrim Ds Tablet) 1 Each Tablet, 1 Tab Oral Twice A Day Active 04/13/2015 [facility] Tylenol Extra Strength NEEDED NA Active 500 MG 0 Fayle 07/18/2005 [facility] Mobic PRN NA Active 7.5 MG 0 Fayle 07/04/2005 [facility] Hydrocodone-Acetaminophen 1 tablet as needed Orally Active 10- 325 MG Orally every 6 hrs [facility] Amlodipine Besylate 1 tablet Orally Active 5 MG Orally Once a day [facility] Lactulose 20 Gm/30 Ml Solution Active [facility] Tramadol Hcl (Ultram) 50 Mg Tablet Every 8 Hours as needed for Severe Pain (7-10) Active [facility] Allergies, Adverse Reactions, Alerts Substance Category Reaction Severity Reaction type Status Date Reported Comments Source N.K.D.A. Adverse Reaction Info Not Available Adverse Reaction Active 08/19/2013 [facility] Testosterone Unknown Allergy to Substance Active 03/13/2017 [facility] Immunizations Results Order Name Results Value Reference Range Date Interpretation Comments Source Automated urine sediment leukocyte count by microscopy (number/high power field) Automated urine sediment leukocyte count by microscopy (number/high power field) <5 0 - 5 03/22/2017 [facility] Bacteria detection in urine sediment by light microscopy Bacteria detection in urine sediment by light microscopy FEW NONE 03/22/2017 [facility] Epithelial cells detection in urine sediment by light microscopy Epithelial cells detection in urine sediment by light microscopy FEW NONE 03/22/2017 [facility] Erythrocytes detection in urine sediment by light microscopy Erythrocytes detection in urine sediment by light microscopy <5 0 - 5 03/22/2017 [facility] Specific gravity of Urine by Test strip Specific gravity of Urine by Test strip 1.005 1.010 - 1.025 03/22/2017 [facility] Urine clarity Urine clarity CLEAR CLEAR 03/22/2017 [facility] Urine color determination Urine color determination YELLOW YELLOW 03/22/2017 [facility] Urine erythrocytes detection Urine erythrocytes detection NEGATIVE NEGATIVE 03/22/2017 [facility] Urine glucose detection Urine glucose detection NEGATIVE NEGATIVE 03/22/2017 [facility] Urine ketones detection by automated test strip Urine ketones detection by automated test strip NEGATIVE NEGATIVE 03/22/2017 [facility] Urine leukocyte esterase detection by dipstick Urine leukocyte esterase detection by dipstick NEGATIVE NEGATIVE 03/22/2017 [facility] Urine nitrite detection Urine nitrite detection NEGATIVE NEGATIVE 03/22/2017 [facility] Urine pH measurement by automated test strip Urine pH measurement by automated test strip 5 5 - 7 03/22/2017 [facility] Urine protein measurement by test strip (mass/volume) Urine protein measurement by test strip (mass/volume) NEGATIVE NEGATIVE 03/22/2017 [facility] Urine total bilirubin measurement (mass/volume) Urine total bilirubin measurement (mass/volume) NEGATIVE NEGATIVE 03/22/2017 [facility] Urine urobilinogen measurement by test strip (mass/volume) Urine urobilinogen measurement by test strip (mass/volume) 0.2 0.2 - 1 03/22/2017 [facility] Automated blood basophil count (count/volume) Automated blood basophil count (count/volume) 0.0 0.0 - 0.1 03/22/2017 [facility] Automated blood basophil count as percentage of total leukocytes Automated blood basophil count as percentage of total leukocytes 0.4 0.0 - 1.0 03/22/2017 [facility] Automated blood eosinophil count Automated blood eosinophil count 0.1 0.0 - 0.4 03/22/2017 [facility] Automated blood eosinophil count as percentage of total leukocytes Automated blood eosinophil count as percentage of total leukocytes 0.8 0.0 - 6.0 03/22/2017 [facility] Automated blood hematocrit (volume fraction) Automated blood hematocrit (volume fraction) 36.4 38.2 - 49.6 03/22/2017 [facility] Automated blood lymphocyte count as percentage ot total leukocytes Automated blood lymphocyte count as percentage ot total leukocytes 14.6 18.0 - 39.1 03/22/2017 [facility] Automated blood monocyte count as percentage of total leukocytes Automated blood monocyte count as percentage of total leukocytes 9.7 4.4 - 11.3 03/22/2017 [facility] Automated blood neutrophil count Automated blood neutrophil count 7.2 2.1 - 6.9 03/22/2017 [facility] Automated blood platelet count (count/volume) Automated blood platelet count (count/volume) 152 140 - 360 03/22/2017 [facility] Automated blood segmented neutrophil count as percentage of total leukocytes Automated blood segmented neutrophil count as percentage of total leukocytes 74.1 38.7 - 80.0 03/22/2017 [facility] Automated erythrocyte mean corpuscular hemoglobin (mass per erythrocyte) Automated erythrocyte mean corpuscular hemoglobin (mass per erythrocyte) 29.7 28 - 32 03/22/2017 [facility] Automated erythrocyte mean corpuscular hemoglobin concentration measurement (mass/volume) Automated erythrocyte mean corpuscular hemoglobin concentration measurement (mass/volume) 32.4 31 - 35 03/22/2017 [facility] Automated erythrocyte mean corpuscular volume Automated erythrocyte mean corpuscular volume 91.7 81 - 99 03/22/2017 [facility] Blood anisocytosis detection by light microscopy Blood anisocytosis detection by light microscopy SLIGHT 03/22/2017 [facility] Blood erythrocytes automated count (number/volume) Blood erythrocytes automated count (number/volume) 3.97 4.3 - 5.7 03/22/2017 [facility] Blood hemoglobin measurement (moles/volume) Blood hemoglobin measurement (moles/volume) 11.8 14.0 - 18.0 03/22/2017 [facility] Blood hypochromia detection by light microscopy Blood hypochromia detection by light microscopy SLIGHT 03/22/2017 [facility] Blood leukocytes automated count (number/volume) Blood leukocytes automated count (number/volume) 9.75 4.8 - 10.8 03/22/2017 [facility] Blood lymphocytes count (number/volume) Blood lymphocytes count (number/volume) 1.4 1.0 - 3.2 03/22/2017 [facility] Blood monocytes automated count (number/volume) Blood monocytes automated count (number/volume) 1.0 0.2 - 0.8 03/22/2017 [facility] Blood platelets count by estimate (number/volume) Blood platelets count by estimate (number/volume) ADEQUATE 03/22/2017 [facility] Estimated glomerular filtration rate (GFR) determination Estimated glomerular filtration rate (GFR) determination >60 60 03/22/2017 [facility] Glucose measurement Glucose measurement 98 74 - 118 03/22/2017 [facility] Plasma globulin measurement (mass/volume) Plasma globulin measurement (mass/volume) 3.7 2.3 - 3.5 03/22/2017 [facility] Platelet morphology Platelet morphology NORMAL 03/22/2017 [facility] RBC morphology RBC morphology NORMAL 03/22/2017 [facility] Serum or plasma alanine aminotransferase measurement (enzymatic activity/volume) Serum or plasma alanine aminotransferase measurement (enzymatic activity/volume) 14 0 - 55 03/22/2017 [facility] Serum or plasma albumin measurement (mass/volume) Serum or plasma albumin measurement (mass/volume) 4.0 3.5 - 5.0 03/22/2017 [facility] Serum or plasma albumin/globulin mass ratio Serum or plasma albumin/globulin mass ratio 1.1 0.8 - 2.0 03/22/2017 [facility] Serum or plasma alkaline phosphatase measurement (enzymatic activity/volume) Serum or plasma alkaline phosphatase measurement (enzymatic activity/volume) 59 40 - 150 03/22/2017 [facility] Serum or plasma anion gap Serum or plasma anion gap 14.4 8 - 16 03/22/2017 [facility] Serum or plasma calcium measurement (mass/volume) Serum or plasma calcium measurement (mass/volume) 9.0 8.4 - 10.2 03/22/2017 [facility] Serum or plasma carbon dioxide, total measurement (moles/volume) Serum or plasma carbon dioxide, total measurement (moles/volume) 25 22 - 29 03/22/2017 [facility] Serum or plasma chloride measurement (moles/volume) Serum or plasma chloride measurement (moles/volume) 103 98 - 107 03/22/2017 [facility] Serum or plasma creatine kinase MB measurement (mass/volume) Serum or plasma creatine kinase MB measurement (mass/volume) 2.00 0.00 - 5.00 03/22/2017 [facility] Serum or plasma creatine kinase measurement (enzymatic activity/volume) Serum or plasma creatine kinase measurement (enzymatic activity/volume) 64 30 - 200 03/22/2017 [facility] Serum or plasma creatinine measurement (mass/volume) Serum or plasma creatinine measurement (mass/volume) 1.11 0.72 - 1.25 03/22/2017 [facility] Serum or plasma lipase measurement (enzymatic activity/volume) Serum or plasma lipase measurement (enzymatic activity/volume) 17 8 - 78 03/22/2017 [facility] Serum or plasma magnesium measurement (mass/volume) Serum or plasma magnesium measurement (mass/volume) 2.2 1.3 - 2.1 03/22/2017 [facility] Serum or plasma potassium measurement (moles/volume) Serum or plasma potassium measurement (moles/volume) 4.4 3.5 - 5.1 03/22/2017 [facility] Serum or plasma protein measurement (mass/volume) Serum or plasma protein measurement (mass/volume) 7.7 6.5 - 8.1 03/22/2017 [facility] Serum or plasma sodium measurement (moles/volume) Serum or plasma sodium measurement (moles/volume) 138 136 - 145 03/22/2017 [facility] Serum or plasma total bilirubin measurement (mass/volume) Serum or plasma total bilirubin measurement (mass/volume) 0.9 0.2 - 1.2 03/22/2017 [facility] Serum or plasma troponin i.cardiac measurement by detection limit <=0.01 NG/ml (mass/volume) Serum or plasma troponin i.cardiac measurement by detection limit <=0.01 NG/ml (mass/volume) 0.001 0 - 0.300 03/22/2017 [facility] Serum or plasma urea nitrogen measurement (mass/volume) Serum or plasma urea nitrogen measurement (mass/volume) 28 7 - 26 03/22/2017 [facility] Serum or plasma urea nitrogen/creatinine mass ratio Serum or plasma urea nitrogen/creatinine mass ratio 25 6 - 25 03/22/2017 [facility] Red Cell Distribution Width 15.3 11.7 - 14.4 03/22/2017 [facility] IM GRANULOCYTES % 0.4 0.0 - 1.0 03/22/2017 [facility] Absolute Immature Granulocyte (auto 0.04 0 - 0.1 03/22/2017 [facility] Aspartate Amino Transf (AST/SGOT) 19 5 - 34 03/22/2017 [facility] Pathology Reports Diagnostic Reports Consultation Notes Discharge Summaries History and Physicals Vital Signs Vital Sign Value Date Comments Source Weight 145 08/19/2013 [facility] Weight 145 07/24/2013 [facility] Weight 143 07/14/2013 [facility] Encounters Location Location Details Encounter Type Encounter Number Reason For Visit Attending Provider ADM Date DC Date Status Source [facility] confirmed-hit wrong option [id number] 07/14/2013 07/14/2013 [facility] confirmed-hit wrong option [id number] 07/14/2013 07/14/2013 [facility] confirmed-hit wrong option [id number] 07/14/2013 07/14/2013 [facility] confirmed-hit wrong option [id number] 07/14/2013 07/14/2013 [facility] confirmed-hit wrong option [id number] 07/14/2013 07/14/2013 [facility] confirmed-hit wrong option [id number] 07/14/2013 07/14/2013 [facility] confirmed-hit wrong option [id number] 07/14/2013 07/14/2013 [facility] Unknown [id number] 07/24/2013 07/24/2013 [facility] Unknown [id number] 07/24/2013 07/24/2013 [facility] Unknown [id number] 07/24/2013 07/24/2013 [facility] Unknown [id number] 07/24/2013 07/24/2013 [facility] Unknown [id number] 07/24/2013 07/24/2013 [facility] Unknown [id number] 07/24/2013 07/24/2013 [facility] Unknown [id number] 07/24/2013 07/24/2013 [facility] Status on MRI results [id number] 08/05/2013 08/05/2013 [facility] Status on MRI results [id number] 08/05/2013 08/05/2013 [facility] Status on MRI results [id number] 08/05/2013 08/05/2013 [facility] Status on MRI results [id number] 08/05/2013 08/05/2013 [facility] Status on MRI results [id number] 08/05/2013 08/05/2013 [facility] Status on MRI results [id number] 08/05/2013 08/05/2013 [facility] Status on MRI results [id number] 08/05/2013 08/05/2013 [facility] confirmed [id number] 08/19/2013 08/19/2013 [facility] confirmed [id number] 08/19/2013 08/19/2013 [facility] confirmed [id number] 08/19/2013 08/19/2013 [facility] confirmed [id number] 08/19/2013 08/19/2013 [facility] Unknown [id number] 08/20/2013 08/20/2013 [facility] Unknown [id number] 08/20/2013 08/20/2013 [facility] Unknown [id number] 08/20/2013 08/20/2013 [facility] Unknown [id number] 08/20/2013 08/20/2013 [facility] switch provider [id number] 03/02/2015 03/02/2015 [facility] switch provider [id number] 03/02/2015 03/02/2015 [facility] 11/15/15-auth pending for EMG w/ RPO *mg;11/15/15- contacted PCP for referral submission to initiate auth *mg;11/15/15- referral on file *mg;Confirmed via , ins/demos are up to date -edegollado [id number] 11/22/2015 11/22/2015 [facility] Departed Emergency Room [id number] MEGHANN ROJAS MD 02/11/2017 02/11/2017 [facility] Departed Emergency Room [id number] RADU TAYLOR MD 03/13/2017 03/13/2017 [facility] Departed Emergency Room [id number] ARSH MOSS MD 03/22/2017 03/22/2017 [facility] Procedures Procedure Code Date Perfomer Comments Source Computed tomography of abdomen and pelvis with contrast [id number] 03/22/2017 CACJOLENE [facility] Plan of Care Plan of Care Date Source Discharge Date 03/22/17 2:59pm Disposition HOME, SELF-CARE Condition at Discharge Stable Instructions/Education Provided Abdominal Pain - Adult Constipation - Adult Forms Provided Work/School Excuse Prescriptions See Medication Section Referrals JANE FLORES MD Address: [address] [place] [id number] Additional Instructions/Education NO RESTRICTION TO ACTIVITY DRINK PLENTY OF FLUIDS CONTACT YOUR PHYSICIAL IF CONDITION WORSENS TAKE MIRALAX DIRECTED PER INSTRUCTIONS FOLLOW UP WITH YOU PRIMARY DOCTOR AND/OR GI DOCTOR SOON YOU CAN 03/22/2017 [facility] Social History Social History Date Source Social History Problem Response Recorded Date/Time Onset [...] No 06/19/2012 3:22am Not Applicable Not Applicable Smoking Status Start Date Stop Date Never Smoker 03/22/2017 [facility] Social History ElementQualifiersDate Reported Education history . High School Graduate [...] 2015 Occupation: . Retired Mar 08, 2015 03/08/2015 [employer] [facility] Family History Value Date Source QualifierDescriptionCommentDate Reported Maternal Grandmother Comment not available Mar [...] Other: Comment not available Mar 08, 2015 03/19/2015 [facility] Advance Directives Order Name Results Value Date Source Advance Directives Advance Directives Directive Response Recorded Date/Time Does the patient have an advance directive? No 06/19/12 3:22am If yes, is advance directive on file with [facility]? No 06/19/12 3:22am If not on file with [facility] will patient provide a copy? No 03/22/17 12:29pm Do you have a Directive to Physician? No 03/22/17 12:29pm Do you have a Medical Power of Crate Maker? No 03/22/17 12:29pm Do you have an out of hospital Do Not Resuscitate Order? No 03/22/17 12:29pm Do you have any special needs we should be aware of? No 03/22/17 12:29pm Do you have a support person here with you today? Yes 03/22/17 12:29pm Did patient receive Notice of Privacy Practices? Yes 03/22/17 12:29pm Did patient receive patient rights and responsibilities? Yes 03/22/17 12:29pm 03/22/2017 [facility] Functional Status
[2018-08-07 10:44] LABS: BASOPHILS # (AUTO) 0.1 (0.0-0.1); BASOPHILS % 0.5 % (0.0-1.0); EOSINOPHILS # (AUTO) 0.1 (0.0-0.4); EOSINOPHILS % 0.9 % (0.0-6.0); HEMOGLOBIN 12.6 g/dL (14.0-18.0); LYMPHOCYTES # (AUTO) 1.4 (1.0-3.2); LYMPHOCYTES % 10.3 % (18.0-39.1); MEAN CORPUSCULAR HEMOGLOBIN 29.1 pg (28-32); MEAN CORPUSCULAR HGB CONC 33.2 g/dL (31-35); MEAN CORPUSCULAR VOLUME 87.8 fL (81-99); MONOCYTES # (AUTO) 1.3 (0.2-0.8); MONOCYTES % 9.1 % (4.4-11.3); NEUTROPHILS # (AUTO) 10.9 (2.1-6.9); NEUTROPHILS % 78.7 % (38.7-80.0); PLATELET COUNT 543 x10e3/uL (140-360); RED BLOOD COUNT 4.33 x10e6/uL (4.3-5.7); RED CELL DISTRIBUTION WIDTH 14.3 % (11.7-14.4)
[2018-08-07 10:53] LABS: INR 0.98; PROTHROMBIN TIME 13.5 seconds (11.9-14.5)
[2018-08-07 10:54] LABS: ALANINE AMINOTRANSFERASE 29 IU/L (0-55); ALBUMIN 2.7 g/dL (3.5-5.0); ALBUMIN/GLOBULIN RATIO 0.5 (0.8-2.0); ALKALINE PHOSPHATASE 112 IU/L (40-150); ANION GAP 16.2 mmol/L (8-16); BLOOD UREA NITROGEN 27 mg/dL (7-26); BUN/CREATININE RATIO 31 (6-25); CARBON DIOXIDE 31 mmol/L (22-29); CHLORIDE 89 mmol/L (98-107); CREATININE, SERUM 0.86 mg/dL (0.72-1.25); EST GLOMERULAR FILTRATION RATE > 60 ML/MIN (60-); GLUCOSE 112 mg/dL (74-118); POTASSIUM 3.2 mmol/L (3.5-5.1); SODIUM 133 mmol/L (136-145)
[2018-08-07] MEDS ORDERED: PEPCID20 MG PO (11:16)
[2018-08-07] MEDS ORDERED: TYLENOL WITH C1 EACH PO (11:16)
[2018-08-07] MEDS ORDERED: CYMBALTA30 MG PO (11:16)
[2018-08-07] MEDS ORDERED: ULTRAM50 MG PO (11:16)
[2018-08-07] MEDS ORDERED: ZINC SULFATE220 MG PO (11:16)
[2018-08-07] MEDS ORDERED: MULTI-VITAMIN1 EACH PO (11:16)
[2018-08-07] MEDS ORDERED: VITAMIN C500 M1 PO (11:16)
[2018-08-07] MEDS ORDERED: SANTYL TOP (11:16)
[2018-08-07] MEDS ORDERED: MINOCYCLINE HCL50 MG PO (11:16)
[2018-08-07] MEDS ORDERED: LIDOCAINE HCL 2% LOCAL 20 ML VIAL ONE (13:57)
[2018-08-07] MEDS ORDERED: FENTANYL CITRATE/PF 100MCG/2 ML INJ ONE (13:57)
[2018-08-07] MEDS ORDERED: MIDAZOLAM HCL 2 MG/2 ML VIAL ONE (13:57)
[2018-08-07] MEDS ORDERED: HEPARIN SOD/SOD CHLORIDE 2,000 ML ONE (13:58)
[2018-08-07] MEDS ORDERED: IOPAMIDOL 300MG/ML 100 ML INFUS..BTL IV ONE (13:58)
[2018-08-07] MEDS ORDERED: SODIUM CHLORIDE 0.9% 1000ML 0 ML ONE (13:58)
[2018-08-07] MEDS ORDERED: SODIUM CHLORIDE 0.9% 1000ML 1,000 ML ONE (15:00)
[2018-08-07] MEDS ORDERED: VERAPAMIL HCL 2.5 MG/ML 2 ML VIAL ONE (15:00)
[2018-08-07] MEDS ORDERED: NITROGLYCERIN/D5W 200 MCG/ML 250 ML ONE (15:00)
[2018-08-07] MEDS ORDERED: DIPHENHYDRAMINE HCL INJ 50 MG/ML VIAL ONE (15:09)
--- NOTE | 2018-08-07 15:45 | NUR ---
1545 Received pt in rm #10 Identiferx2 Peripheral angio No fix Report from Amrik GUTIERREZ 50 Fentynl/2 Versed Back to baseline orientation. Resp shallow and regular 99% Sat Abdomen soft and non tender. Cleaned large soft Bm.Leija to bedside drain from retirement. Bilateral pedal pulsex4 PD/DP doppler. 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 lst ACT at 1530 243 ACT at 1630 230 ACT at 1800 179 Tiki, RTR notified ready for pull 20min held with 2x2 dressing no bleeding Pulses unchanged. Called House Supv.obtain 176 from Lee GUTIERREZ 0159 called floor for report ds/shaan
[2018-08-07] MEDS ORDERED: ATROPINE SULFATE 0.1 MG/ML 10ML SYR ONE (17:48)
--- NOTE | 2018-08-07 18:04 | NUR ---
ACT 179 Cale. RTR pulled sheath and hold rt groin till stasis No hematoma appropriate dressing applied No gross issues pain, pallor, pressure or dysrhythmia. Leija bag to BSD IV intact and off to rt ac No s/s infiltration.
--- NOTE | 2018-08-07 18:45 | NUR ---
7631 Report to Chi Rn stable rt sheath pull with 20min hold per imaging technologist Tiki RTR 2x2 dressing. No hematoma or oozing. with PPx4 Dp/Pt doppler only Needs surgical iliac fix per Dr Astudillo. Rt Iv intact rt ac fluids off. with escort to room #176.Transported via tele and stretcher. No gross issues pain pallor pressure or dysrhythmia. Appears to be at baseline orientation Transported on RA VS stable. For potential dc tomorrow. Back vis EMS transport to [facility] with papers for transport on chart and has CD for surgical consult. Denies C/o Pain or SOB. ds/rn
--- OUTSIDE RECORDS SUMMARY | 2018-08-07 18:59 | XMS REPORT | Continuity of Care Document ---
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 Name Role Phone [employer] Unavailable Unavailable Problems Problem Status Onset Date Classification Date Reported Comments Source Screening for obesity Active Problem 01/03/2016 [facility] Cervical spondylosis with myelopathy Active Problem 01/03/2016 [facility] Screening for tobacco use Active Problem 01/03/2016 [facility] Displacement of lumbar intervertebral disc without myelopathy Active Problem 01/03/2016 [facility] Screening for hypertension Active Problem 01/03/2016 [facility] Abnormality of gait Active Diagnosis 08/26/2013 [facility] 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 [facility] 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 [facility] Anterior shoulder dislocation Active Problem 03/22/2017 [facility] Leg dysfunction Active Problem 03/22/2017 [facility] Medications Medication Details Route Status Patient Instructions Ordering Provider Order Date Source Hydrocodone Bit/Acetaminophen* (Vicodin 5-500 Tablet*) 1 Each Tablet, 1 Tab Oral Every 4 Hours as needed Active 04/13/2015 [facility] Sulfamethoxazole/Trimethoprim (Bactrim Ds Tablet) 1 Each Tablet, 1 Tab Oral Twice A Day Active 04/13/2015 [facility] Tylenol Extra Strength NEEDED NA Active 500 MG 0 Fayle 07/18/2005 [facility] Mobic PRN NA Active 7.5 MG 0 Fayle 07/04/2005 [facility] Hydrocodone-Acetaminophen 1 tablet as needed Orally Active 10- 325 MG Orally every 6 hrs [facility] Amlodipine Besylate 1 tablet Orally Active 5 MG Orally Once a day [facility] Lactulose 20 Gm/30 Ml Solution Active [facility] Tramadol Hcl (Ultram) 50 Mg Tablet Every 8 Hours as needed for Severe Pain (7-10) Active [facility] Allergies, Adverse Reactions, Alerts Substance Category Reaction Severity Reaction type Status Date Reported Comments Source N.K.D.A. Adverse Reaction Info Not Available Adverse Reaction Active 08/19/2013 [facility] Testosterone Unknown Allergy to Substance Active 03/13/2017 [facility] Immunizations No Data Provided for This Section Results Order Name Results Value Reference Range Date Interpretation Comments Source Automated urine sediment leukocyte count by microscopy (number/high power field) Automated urine sediment leukocyte count by microscopy (number/high power field) <5 0 - 5 03/22/2017 [facility] Bacteria detection in urine sediment by light microscopy Bacteria detection in urine sediment by light microscopy FEW NONE 03/22/2017 [facility] Epithelial cells detection in urine sediment by light microscopy Epithelial cells detection in urine sediment by light microscopy FEW NONE 03/22/2017 [facility] Erythrocytes detection in urine sediment by light microscopy Erythrocytes detection in urine sediment by light microscopy <5 0 - 5 03/22/2017 [facility] Specific gravity of Urine by Test strip Specific gravity of Urine by Test strip 1.005 1.010 - 1.025 03/22/2017 [facility] Urine clarity Urine clarity CLEAR CLEAR 03/22/2017 [facility] Urine color determination Urine color determination YELLOW YELLOW 03/22/2017 [facility] Urine erythrocytes detection Urine erythrocytes detection NEGATIVE NEGATIVE 03/22/2017 [facility] Urine glucose detection Urine glucose detection NEGATIVE NEGATIVE 03/22/2017 [facility] Urine ketones detection by automated test strip Urine ketones detection by automated test strip NEGATIVE NEGATIVE 03/22/2017 [facility] Urine leukocyte esterase detection by dipstick Urine leukocyte esterase detection by dipstick NEGATIVE NEGATIVE 03/22/2017 [facility] Urine nitrite detection Urine nitrite detection NEGATIVE NEGATIVE 03/22/2017 [facility] Urine pH measurement by automated test strip Urine pH measurement by automated test strip 5 5 - 7 03/22/2017 [facility] Urine protein measurement by test strip (mass/volume) Urine protein measurement by test strip (mass/volume) NEGATIVE NEGATIVE 03/22/2017 [facility] Urine total bilirubin measurement (mass/volume) Urine total bilirubin measurement (mass/volume) NEGATIVE NEGATIVE 03/22/2017 [facility] Urine urobilinogen measurement by test strip (mass/volume) Urine urobilinogen measurement by test strip (mass/volume) 0.2 0.2 - 1 03/22/2017 [facility] Automated blood basophil count (count/volume) Automated blood basophil count (count/volume) 0.0 0.0 - 0.1 03/22/2017 [facility] Automated blood basophil count as percentage of total leukocytes Automated blood basophil count as percentage of total leukocytes 0.4 0.0 - 1.0 03/22/2017 [facility] Automated blood eosinophil count Automated blood eosinophil count 0.1 0.0 - 0.4 03/22/2017 [facility] Automated blood eosinophil count as percentage of total leukocytes Automated blood eosinophil count as percentage of total leukocytes 0.8 0.0 - 6.0 03/22/2017 [facility] Automated blood hematocrit (volume fraction) Automated blood hematocrit (volume fraction) 36.4 38.2 - 49.6 03/22/2017 [facility] Automated blood lymphocyte count as percentage ot total leukocytes Automated blood lymphocyte count as percentage ot total leukocytes 14.6 18.0 - 39.1 03/22/2017 [facility] Automated blood monocyte count as percentage of total leukocytes Automated blood monocyte count as percentage of total leukocytes 9.7 4.4 - 11.3 03/22/2017 [facility] Automated blood neutrophil count Automated blood neutrophil count 7.2 2.1 - 6.9 03/22/2017 [facility] Automated blood platelet count (count/volume) Automated blood platelet count (count/volume) 152 140 - 360 03/22/2017 [facility] Automated blood segmented neutrophil count as percentage of total leukocytes Automated blood segmented neutrophil count as percentage of total leukocytes 74.1 38.7 - 80.0 03/22/2017 [facility] Automated erythrocyte mean corpuscular hemoglobin (mass per erythrocyte) Automated erythrocyte mean corpuscular hemoglobin (mass per erythrocyte) 29.7 28 - 32 03/22/2017 [facility] Automated erythrocyte mean corpuscular hemoglobin concentration measurement (mass/volume) Automated erythrocyte mean corpuscular hemoglobin concentration measurement (mass/volume) 32.4 31 - 35 03/22/2017 [facility] Automated erythrocyte mean corpuscular volume Automated erythrocyte mean corpuscular volume 91.7 81 - 99 03/22/2017 [facility] Blood anisocytosis detection by light microscopy Blood anisocytosis detection by light microscopy SLIGHT 03/22/2017 [facility] Blood erythrocytes automated count (number/volume) Blood erythrocytes automated count (number/volume) 3.97 4.3 - 5.7 03/22/2017 [facility] Blood hemoglobin measurement (moles/volume) Blood hemoglobin measurement (moles/volume) 11.8 14.0 - 18.0 03/22/2017 [facility] Blood hypochromia detection by light microscopy Blood hypochromia detection by light microscopy SLIGHT 03/22/2017 [facility] Blood leukocytes automated count (number/volume) Blood leukocytes automated count (number/volume) 9.75 4.8 - 10.8 03/22/2017 [facility] Blood lymphocytes count (number/volume) Blood lymphocytes count (number/volume) 1.4 1.0 - 3.2 03/22/2017 [facility] Blood monocytes automated count (number/volume) Blood monocytes automated count (number/volume) 1.0 0.2 - 0.8 03/22/2017 [facility] Blood platelets count by estimate (number/volume) Blood platelets count by estimate (number/volume) ADEQUATE 03/22/2017 [facility] Estimated glomerular filtration rate (GFR) determination Estimated glomerular filtration rate (GFR) determination >60 60 03/22/2017 [facility] Glucose measurement Glucose measurement 98 74 - 118 03/22/2017 [facility] Plasma globulin measurement (mass/volume) Plasma globulin measurement (mass/volume) 3.7 2.3 - 3.5 03/22/2017 [facility] Platelet morphology Platelet morphology NORMAL 03/22/2017 [facility] RBC morphology RBC morphology NORMAL 03/22/2017 [facility] Serum or plasma alanine aminotransferase measurement (enzymatic activity/volume) Serum or plasma alanine aminotransferase measurement (enzymatic activity/volume) 14 0 - 55 03/22/2017 [facility] Serum or plasma albumin measurement (mass/volume) Serum or plasma albumin measurement (mass/volume) 4.0 3.5 - 5.0 03/22/2017 [facility] Serum or plasma albumin/globulin mass ratio Serum or plasma albumin/globulin mass ratio 1.1 0.8 - 2.0 03/22/2017 [facility] Serum or plasma alkaline phosphatase measurement (enzymatic activity/volume) Serum or plasma alkaline phosphatase measurement (enzymatic activity/volume) 59 40 - 150 03/22/2017 [facility] Serum or plasma anion gap Serum or plasma anion gap 14.4 8 - 16 03/22/2017 [facility] Serum or plasma calcium measurement (mass/volume) Serum or plasma calcium measurement (mass/volume) 9.0 8.4 - 10.2 03/22/2017 [facility] Serum or plasma carbon dioxide, total measurement (moles/volume) Serum or plasma carbon dioxide, total measurement (moles/volume) 25 22 - 29 03/22/2017 [facility] Serum or plasma chloride measurement (moles/volume) Serum or plasma chloride measurement (moles/volume) 103 98 - 107 03/22/2017 [facility] Serum or plasma creatine kinase MB measurement (mass/volume) Serum or plasma creatine kinase MB measurement (mass/volume) 2.00 0.00 - 5.00 03/22/2017 [facility] Serum or plasma creatine kinase measurement (enzymatic activity/volume) Serum or plasma creatine kinase measurement (enzymatic activity/volume) 64 30 - 200 03/22/2017 [facility] Serum or plasma creatinine measurement (mass/volume) Serum or plasma creatinine measurement (mass/volume) 1.11 0.72 - 1.25 03/22/2017 [facility] Serum or plasma lipase measurement (enzymatic activity/volume) Serum or plasma lipase measurement (enzymatic activity/volume) 17 8 - 78 03/22/2017 [facility] Serum or plasma magnesium measurement (mass/volume) Serum or plasma magnesium measurement (mass/volume) 2.2 1.3 - 2.1 03/22/2017 [facility] Serum or plasma potassium measurement (moles/volume) Serum or plasma potassium measurement (moles/volume) 4.4 3.5 - 5.1 03/22/2017 [facility] Serum or plasma protein measurement (mass/volume) Serum or plasma protein measurement (mass/volume) 7.7 6.5 - 8.1 03/22/2017 [facility] Serum or plasma sodium measurement (moles/volume) Serum or plasma sodium measurement (moles/volume) 138 136 - 145 03/22/2017 [facility] Serum or plasma total bilirubin measurement (mass/volume) Serum or plasma total bilirubin measurement (mass/volume) 0.9 0.2 - 1.2 03/22/2017 [facility] Serum or plasma troponin i.cardiac measurement by detection limit <=0.01 NG/ml (mass/volume) Serum or plasma troponin i.cardiac measurement by detection limit <=0.01 NG/ml (mass/volume) 0.001 0 - 0.300 03/22/2017 [facility] Serum or plasma urea nitrogen measurement (mass/volume) Serum or plasma urea nitrogen measurement (mass/volume) 28 7 - 26 03/22/2017 [facility] Serum or plasma urea nitrogen/creatinine mass ratio Serum or plasma urea nitrogen/creatinine mass ratio 25 6 - 25 03/22/2017 [facility] Red Cell Distribution Width 15.3 11.7 - 14.4 03/22/2017 [facility] IM GRANULOCYTES % 0.4 0.0 - 1.0 03/22/2017 [facility] Absolute Immature Granulocyte (auto 0.04 0 - 0.1 03/22/2017 [facility] Aspartate Amino Transf (AST/SGOT) 19 5 - 34 03/22/2017 [facility] Pathology Reports No Data Provided for This Section Diagnostic Reports No Data Provided for This Section Consultation Notes No Data Provided for This Section Discharge Summaries No Data Provided for This Section History and Physicals No Data Provided for This Section Vital Signs Vital Sign Value Date Comments Source Weight 145 08/19/2013 [facility] Weight 145 07/24/2013 [facility] Weight 143 07/14/2013 [facility] Encounters Location Location Details Encounter Type Encounter Number Reason For Visit Attending Provider ADM Date DC Date Status Source [facility] [place] confirmed-hit wrong option [id number] 07/14/2013 07/14/2013 [facility] confirmed-hit wrong option [id number] 07/14/2013 07/14/2013 [facility] confirmed-hit wrong option [id number] 07/14/2013 07/14/2013 [facility] confirmed-hit wrong option [id number] 07/14/2013 07/14/2013 [facility] confirmed-hit wrong option [id number] 07/14/2013 07/14/2013 [facility] confirmed-hit wrong option [id number] 07/14/2013 07/14/2013 [facility] confirmed-hit wrong option [id number] 07/14/2013 07/14/2013 [facility] Unknown [id number] 07/24/2013 07/24/2013 [facility] Unknown [id number] 07/24/2013 07/24/2013 [facility] Unknown [id number] 07/24/2013 07/24/2013 [facility] Unknown [id number] 07/24/2013 07/24/2013 [facility] Unknown [id number] 07/24/2013 07/24/2013 [facility] Unknown [id number] 07/24/2013 07/24/2013 [facility] Unknown [id number] 07/24/2013 07/24/2013 [facility] Status on MRI results [id number] 08/05/2013 08/05/2013 [facility] Status on MRI results [id number] 08/05/2013 08/05/2013 [facility] Status on MRI results [id number] 08/05/2013 08/05/2013 [facility] Status on MRI results [id number] 08/05/2013 08/05/2013 [facility] Status on MRI results [id number] 08/05/2013 08/05/2013 [facility] Status on MRI results [id number] 08/05/2013 08/05/2013 [facility] Status on MRI results [id number] 08/05/2013 08/05/2013 [facility] confirmed [id number] 08/19/2013 08/19/2013 [facility] confirmed [id number] 08/19/2013 08/19/2013 [facility] confirmed [id number] 08/19/2013 08/19/2013 [facility] confirmed [id number] 08/19/2013 08/19/2013 [facility] Unknown [id number] 08/20/2013 08/20/2013 [facility] Unknown [id number] 08/20/2013 08/20/2013 [facility] Unknown [id number] 08/20/2013 08/20/2013 [facility] Unknown [id number] 08/20/2013 08/20/2013 [facility] switch provider [id number] 03/02/2015 03/02/2015 [facility] switch provider [id number] 03/02/2015 03/02/2015 [facility] 11/15/15-auth pending for EMG w/ RPO *mg;11/15/15- contacted PCP for referral submission to initiate auth *mg;11/15/15- referral on file *mg;Confirmed via , ins/demos are up to date -edegollado [id number] 11/22/2015 11/22/2015 [facility] Departed Emergency Room [id number] MEGHANN ROJAS MD 02/11/2017 02/11/2017 [facility] Departed Emergency Room [id number] RADU TAYLOR MD 03/13/2017 03/13/2017 [facility] Departed Emergency Room [id number] ARSH MOSS MD 03/22/2017 03/22/2017 [facility] Procedures Procedure Code Date Perfomer Comments Source Computed tomography of abdomen and pelvis with contrast [id number] 03/22/2017 [facility] Assessment and Plan No Data Provided for This Section Plan of Care Plan of Care Date Source Discharge Date 03/22/17 2:59pm Disposition HOME, SELF-CARE Condition at Discharge Stable Instructions/Education Provided Abdominal Pain - Adult Constipation - Adult Forms Provided Work/School Excuse Prescriptions See Medication Section Referrals JANE FLORES MD Address: [address] [place] [phone] Additional Instructions/Education NO RESTRICTION TO ACTIVITY DRINK PLENTY OF FLUIDS CONTACT YOUR PHYSICIAL IF CONDITION WORSENS TAKE MIRALAX DIRECTED PER INSTRUCTIONS FOLLOW UP WITH YOU PRIMARY DOCTOR AND/OR GI DOCTOR SOON YOU CAN 03/22/2017 [facility] Social History Social History Date Source Social [...] Start Date Stop Date Never Smoker 03/22/2017 [facility] Social History ElementQualifiersDate Reported Education history . [...] Occupation: . Retired Mar 08, 2015 03/08/2015 [facility] Family History Value Date Source QualifierDescriptionCommentDate Reported [...] Comment not available Mar 08, 2015 03/19/2015 [facility] Advance Directives Order Name Results Value Date Source Advance Directives Advance Directives Directive Response Recorded Date/Time Does the patient have an advance directive? No 06/19/12 3:22am If yes, is advance directive on file with [facility]? No 06/19/12 3:22am If not on file with [facility] will patient provide a copy? No 03/22/17 12:29pm Do you have a Directive to Physician? No 03/22/17 12:29pm Do you have a Medical Power of Back Shoe Operator? No 03/22/17 12:29pm Do you have an [...] rights and responsibilities? Yes 03/22/17 12:29pm 03/22/2017 [facility] Functional Status No Data Provided for This Section
--- NOTE | 2018-08-07 19:00 | NUR ---
patient is a new admit that arrived via stretcher. patient is alert and oriented 2-3. patient has wounds over sacrum and buttocks. patient arrived with a telemetry box. patient has been transferred into the bed. bed is in the lowest position and call arellano is within reach. will continue to monitor patient.
[2018-08-08 04:00] VITALS: BP 150/70
--- NOTE | 2018-08-08 06:59 | NUR ---
report given to day nurse. patient is resting comfortably in bed. bed is in lowest position and call arellano is within reach
[2018-08-08 08:23] VITALS: BP 144/67
--- NOTE | 2018-08-08 10:38 | Progress Note ---
DATE: 08/08/2018 Cardiology Progress Note. SUBJECTIVE: The patient is feeling well. Denies any chest pain, shortness of breath, claudication, leg pain, or any bleeding problems. He is still weak from muscular weakness. OBJECTIVE: VITAL SIGNS: Temperature is 98, heart rate is 76, respiratory rate is 17, blood pressure is 125/63, oxygen saturation 100% on room air. GENERAL: He is a well-appearing elderly man, lying comfortably in bed, no apparent distress. HEAD: Normocephalic, atraumatic. EYES: The extraocular muscles are intact. Conjunctivae are clear. NECK: No JVD. No bruits. CARDIOVASCULAR: Regular rate and rhythm. No murmurs. LUNGS: Clear to auscultation. ABDOMEN: Soft, nontender, nondistended. EXTREMITIES: No clubbing, cyanosis, or edema. VASCULAR: Diminished pulses. NEUROLOGIC: No focal deficits noted with muscular weakness. CARDIOVASCULAR MEDICATIONS: Reviewed. LABORATORY DATA: Reviewed from 08/07/2018, showed a hemoglobin of 12.6 and creatinine of 0.86. Peripheral angiogram showed significant severe disease in bilateral lower extremities that could not be intervened percutaneously. IMPRESSION: 1. Peripheral arterial disease. 2. Chronic debilitation. 3. Hypertension. 4. Esophageal reflux disease. 5. Benign prostatic hypertrophy. 6. Frailty. RECOMMENDATIONS: This patient was diagnosed with peripheral arterial disease and underwent attempted percutaneous transluminal angioplasty without success. The patient has severe chronic total occlusions that cannot be crossed from an endovascular route. If the patient should need revascularization, this will need to be done by a vascular surgeon under general anesthesia. I feel that his muscular weakness is not solely related to his arterial disease. The patient has lost a great amount of weight recently. He is not eating well. I believe he has a component of musculoskeletal weakness that will need physical rehabilitation. The patient may be discharged safely back to his rehabilitation unit. Magan Astudillo DO BM/MODL /[id number]
[2018-08-08 12:09] VITALS: BP 145/64
[2018-08-08] MEDS ORDERED: TRAMADOL HCL 50 MG TAB PO PRN ×2 (12:30→12:45)
--- NOTE | 2018-08-08 12:49 | NUR ---
SPOKE WITH SRUTHI AT [facility] PT TO RETURN TO ROOM [address] [facility]
--- NOTE | 2018-09-18 15:41 | Operative Report ---
DATE OF PROCEDURE: 08/07/2018 SURGEON: Magan Astudillo DO PROCEDURES PERFORMED: 1. Abdominal aortography. 2. Third-order peripheral angiography of the left lower extremity. 3. Bilateral extremity angiography. PREPROCEDURE DIAGNOSIS: Peripheral artery disease. POSTPROCEDURE DIAGNOSIS: Peripheral artery disease. ESTIMATED BLOOD LOSS: Less than 20 mL. SPECIMENS REMOVED: None. PROCEDURE IN DETAIL: After informed consent was obtained, the patient was brought to the cardiac catheterization laboratory in the fasting and nonsedated state. Bilateral groins were prepped and draped in the usual sterile fashion. A 2% lidocaine was infiltrated over the right anterior groin for local anesthesia. Using micropuncture needle, the right common femoral artery was accessed via modified Seldinger technique and a 5-Bahamian sheath was placed. Next, diagnostic abdominal aortography was performed using Omni Flush catheter. This was crossed up and over into the second order peripheral position and diagnostic imaging was performed of the left lower extremity. Next, a poor runoff of the right lower extremity. The patient tolerated the procedure well. No immediate complications, transferred back to his room in stable condition. PROCEDURE FINDINGS: 1. The abdominal aorta is patent without significant disease or dissection nor aneurysm. 2. Left lower extremity; the common iliac artery has a 50% stenosis with a 15 mm gradient. The external iliac artery is subtotally occluded and reconstitutes in the common femoral. The deep femoral system is patent. The left superficial femoral artery is occluded at its ostium. Reconstitutes in the midportion with subsequent 70% stenosis in the distal superficial femoral and 70% stenosis in the popliteal artery. There is 3-vessel runoff with mild diffuse disease of the left lower extremity. 3. Right lower extremity. The iliac system, common femoral, deep femoral system are patent. There is a chronic total occlusion in the midportion of the right superficial femoral artery and reconstitutes distally. There is a chronic totally occluded right anterior tibial. There is a washout at the end of the angiography of the peroneal and posterior tibial vessels. IMPRESSION: Severe peripheral artery disease. RECOMMENDATIONS: Continue aggressive medical management and if the patient exhibits any wounds, then we will refer to vascular surgery. The patient is essentially bed-bound and does not move, so there are no feasible percutaneous options for his severe peripheral arterial disease at this point in time. DO DESTINY Steiner/LYNDA /[id number]
== END 2018-08-08 14:03 | disposition short-term general hospital (02) ==
LOC: CATH LAB 09:31 → IMCU 18:55
PROVIDERS: ADMIT Internal Medicine Cardiovascular Disease; ATTEND Internal Medicine Cardiovascular Disease
DX: I70.223 Atherosclerosis of native arteries of extremities with rest pain, bilateral legs (principal); I87.2 Venous insufficiency (chronic) (peripheral); R16.1 Splenomegaly, not elsewhere classified; K21.9 Gastro-esophageal reflux disease without esophagitis; N40.0 Benign prostatic hyperplasia without lower urinary tract symptoms
CPT/HCPCS: 36247; 36415; 75625; 75716; 80053; 85025; 85610; C1766; C1769 ×3; C1887 ×2; G0378 ×2; J1200; J2001; J2250; J7030; Q9967; J3010